=== PATIENT | male | born 1955 | race Caucasian/White ===

== ENCOUNTER 2017-02-09 08:16 | Emergency (ER) | payer BC, OTHER ==
[2017-02-09 08:32] VITALS: BP 170/99
[2017-02-09] MEDS ORDERED: Ondansetron TAB* 4 MG PO ONE (08:50)
[2017-02-09] MEDS ORDERED: Ondansetron ODT TAB* 4 MG ONE (08:53)
[2017-02-09] MEDS ORDERED: Ondansetron ODT TAB* 4 MG PO ONE (08:54)
--- NOTE | 2017-02-09 09:33 | RAD ---
HISTORY: Trauma, fall, neck pain COMPARISONS: None TECHNIQUE: Multiple contiguous axial CT scans were obtained of the cervical spine without intravenous contrast, with coronal and sagittal multiplanar reformations. FINDINGS: BRAIN: The visualized brain is unremarkable CENTRAL CANAL: Evaluation of the central canal is limited on CT technique; however, there is no obvious canalicular mass or epidural hemorrhage. ALIGNMENT: There is straightening with reversal of the normal cervical lordosis. VERTEBRAL BODIES: There is anterolateral marginal osteophyte formation most pronounced at C4-C5 and C5-C6. There is sclerotic reactive endplate change. There is no displaced fracture. JOINTS: There is uncovertebral and facet osteoarthritis. There is osteoarthritis of the atlantoaxial articulation. There is no subluxation or dislocation. MUSCULATURE: Unremarkable INTERVERTEBRAL DISCS: There is diffuse loss of intervertebral disc height. AXIAL IMAGES: There is neural foraminal narrowing bilaterally at C5-C6 and C6-C7. There is no osseous central canal stenosis. SOFT TISSUES: The visualized soft tissues of the neck are unremarkable. The prevertebral fat stripe is preserved. OTHER: None. IMPRESSION: DEGENERATIVE DISC DISEASE AND OSTEOARTHRITIS, WITHOUT ACUTE OSSEOUS INJURY TO THE CERVICAL SPINE
--- NOTE | 2017-02-09 09:36 | RAD ---
INDICATION: Fall. Intracranial injury. COMPARISON: None TECHNIQUE: Noncontrast axial source images were acquired from the skull base to the vertex. FINDINGS: Ventricles/sulci: The ventricles and cisterns are normal in size and configuration for age. Brain parenchyma: There is no focal parenchymal finding, evidence of intracranial mass, or intracranial mass effect. Intracranial hemorrhage:None. Extra-axial spaces: There are no abnormal extra axial fluid collections or evidence of extra-axial mass. Calvarium: There is no calvarial fracture or other calvarial abnormality. Scalp: There is no evidence of scalp or extracalvarial soft tissue abnormality. Paranasal sinuses/mastoid: The paranasal sinuses and mastoid air cells are clear. Other: None. IMPRESSION: No acute intracranial findings.
[2017-02-09] MEDS ORDERED: Ibuprofen TAB* 400 MG PO ONE (09:56)
--- NOTE | 2017-02-09 12:55 | UC ---
Nguyễn Suarez Adam, scribed for Glenda James MD on 02/09/17 at 0838 . Head Injury HPI - HPI Summary HPI Summary: Pt is a 61 year old male presenting after a head injury. He was at work approx 45 minutes ago when he fell in the parking lot and struck the back of his head. The event was witnessed by a co-worker but the pt does not remember the fall or anything that happened for several minutes afterwards. The first thing he remembers is people yelling at him while he was lying down. He currently c/o "pounding" pain in his ears, neck soreness (from shoulders to back of skull), and he states that his "stomach is doing flip flops." He states that his breathing is good now after using his inhaler. He denies any numbness, tingling , back pain, or difficulty moving extremities. Pt's last PO intake was a cup of coffee at 04:00 this morning. PMHx of HTN. Former smoker (quit 10 years ago). No Hx of DM. No prior head/neck injuries. - History Of Current Complaint Chief Complaint: UCTrauma Stated Complaint: HEAD/NECK INJURY Hx Obtained From: Patient Onset/Duration: Sudden Onset, Lasting Minutes, Still Present Severity Currently: Moderate Severity Initially: Moderate Aggravating Factor(s): Nothing Alleviating Factor(s): Nothing Associated Signs And Symptoms: Positive: Memory Loss, Neck Pain, Nausea, Other - Ears "pounding" - Allergies/Home Medications Allergies/Adverse Reactions: Allergies Allergy/AdvReac Type Severity Reaction Status Date / Time spinal anesthesia AdvReac Mild he gets Uncoded 01/19/13 09:32 "very mean" after waking up PMH/Surg Hx/FS Hx/Imm Hx Endocrine History Of: Denies: Diabetes, Thyroid Disease Cardiovascular History Of: Reports: Cardiac Disorders, Hypertension Denies: Pacemaker/ICD Respiratory History Of: Denies: COPD, Asthma GI/ History Of: Reports: Kidney Stones Denies: Gastroesophageal Reflux, Renal Disease Neurological History Of: Denies: CVA, Dementia, Seizures Other History Of: Negative For: Anticoagulant Therapy - Surgical History Surgical History: Yes Surgery Procedure, Year, and Place: suprapubic prostetectomy with lymph node dissection,. right hernia repair,. excision bladder stone,. cardiac cath - Family History Known Family History: Positive: Hypertension - Mother, father, Other - Septic shock (mother) - Social History Occupation: Employed Full-time Lives: With Family - Alcohol Use: Occasionally Substance Use Type: None Smoking Status (MU): Never Smoked Tobacco - Immunization History Most Recent Tetanus Shot: Unsure if he's up to date Review of Systems ENT: Ear Ache - "Pounding" Gastrointestinal: Other - Nausea - "stomach doing flip flops" Musculoskeletal: Other: - Neck soreness All Other Systems Reviewed And Are Negative: Yes Physical Exam Triage Information Reviewed: Yes Vital Signs: Initial Vital Signs Temp 99.1 F 02/09/17 08:25 Pulse 67 02/09/17 08:25 Resp 18 02/09/17 08:25 BP 170/99 02/09/17 08:25 Pulse Ox 94 02/09/17 08:25 - Additional Comments * Appearance: Well-Nourished * Eye Exam: PERRLA EOMI Sees double at approximately 8 inches. Fundi grossly benign. * ENT Exam: Normal TM's george, dull. Rtx'd. * Neck exam: Normal, No adenopathy appreciated * Respiratory Exam: Normal, no dyspnea, no tachypnea, normal respiratory rate * Cardiovascular Exam: Normal * Cardiovascular: Heart rate regular, good general skin color, good capillary refill * Abdominal Exam: Normal * Abdomen Description: Nontender, No Organomegaly, Soft. * Bowel Sounds: Present * Musculoskeletal Exam: Normal * Musculoskeletal: Strength Intact * Neurological Exam: CN 1 - 12 intact, incl + sens alcohol swab. No diplopia. DTR's 2+ equal BR / R Moves all ext's. Distal sens LT present x 4 ext's Denies B /B issues. Gait slow steady. * Psychological Exam: Normal: conversing easily and appropriately Skin Exam: Normal: no visible or reported rash Diagnostics - Laboratory Diagnostic Studies Completed/Ordered: CERVICAL SPINE CT - IMPRESSION: DEGENERATIVE DISC DISEASE AND OSTEOARTHRITIS, WITHOUT ACUTE OSSEOUS INJURY TO THE CERVICAL SPINE. BRAIN CT - IMPRESSION: NO ACUTE INTRACRANIAL FINDINGS. Head Injury Course/Dx - Course Course Of Treatment: No new problems while in the [facility]. Reviewed CT reports with Jeannie. Questions answered to the best of my ability. Reviewed need for f/u with pcp. Reviewed concussion instructions. - Differential Dx/Diagnosis Provider Diagnoses: Head injury; cervical spine strain; concussion. Discharge - Discharge Plan Condition: Stable Disposition: HOME Prescriptions: Cyclobenzaprine TAB* [Flexeril 10 MG TAB*] 10 mg PO TID PRN #20 tab PRN Reason: spasm Ondansetron ODT TAB* [Zofran 4 MG Odt TAB*] 4 mg PO Q6H PRN #16 tab.odt PRN Reason: Nausea Patient Education Materials: Concussion (ED), Head Injury (ED), Cervical Sprain (ED) Forms: *Work Release Referrals: Bradley Hurtado MD [Primary Care Provider] - Additional Instructions: Follow up with your Primary Care Physician, Dr. Hurtado, this week (within the next 2-3 days if possible for recheck). Please seek medical attention for worse or new symptoms in the meantime. Ibuprofen (as previously prescribed by your doctor), as needed for pain / inflammation. The documentation as recorded by the Nguyễn ramirez Adam accurately reflects the service I personally performed and the decisions made by me, Glenda James MD.
== END 2017-02-09 10:32 | disposition home or self-care (01) ==
LOC: UCEAST 08:16
DX: S16.1XXA Strain of muscle, fascia and tendon at neck level, initial encounter (principal); S06.0X9A Concussion with loss of consciousness of unspecified duration, initial encounter; W18.30XA Fall on same level, unspecified, initial encounter; Y93.9 Activity, unspecified; Y92.481 Parking lot as the place of occurrence of the external cause; M50.30 Other cervical disc degeneration, unspecified cervical region; M47.812 Spondylosis without myelopathy or radiculopathy, cervical region; Z88.4 Allergy status to anesthetic agent
CPT/HCPCS: 70450; 72125; 99213; A9270-GY; G0463

== ENCOUNTER 2017-02-12 11:59 | Emergency (ER) | payer SELFPAY ==
[2017-02-12 12:57] VITALS: BP 124/76
--- NOTE | 2017-02-12 13:27 | UC ---
Neck Pain HPI - HPI Summary HPI Summary: Fell backwards on ice 02/09/17, hit head and was unconscious with a few minutes of retrograde amnesia and confusion. Was seen in , CT of neck and head were normal. Was nauseated that day, since then no nausea, headache, confusion, or dizziness. Continues to have neck pain (mostly lateral) that worsens throughout the day. Hasn't wanted to take muscle relaxer because Dr. James warned him it could lead to urinary incontinence at night due to his hx of prostate CA. Needs note to return to work - History of Current Complaint Chief Complaint: UCBackPain Stated Complaint: HEAD INJURY FOLLOW UP Time Seen by Provider: 02/12/17 13:10 Hx Obtained From: Patient Onset/Duration Of Injury/Symptoms: Days Mechanism Of Injury: Blunt Trauma Timing: Constant Onset/Duration: Sudden Onset Severity: Moderate Location: Discrete At: Character: Dull, Aching, Stiff Aggravating Factors: Position, Movement Alleviating Factors: OTC Meds Associated Signs & Symptoms: Negative: Fever, Weakness, Headache, Paresthesia Related History: Occupational Injury - Allergies/Home Medications Allergies/Adverse Reactions: Allergies Allergy/AdvReac Type Severity Reaction Status Date / Time spinal anesthesia AdvReac Mild he gets Uncoded 01/19/13 09:32 "very mean" after waking up PMH/Surg Hx/FS Hx/Imm Hx Endocrine History Of: Denies: Diabetes, Thyroid Disease Cardiovascular History Of: Reports: Cardiac Disorders, Hypertension Denies: Pacemaker/ICD Respiratory History Of: Denies: COPD, Asthma GI/ History Of: Reports: Kidney Stones Denies: Gastroesophageal Reflux, Renal Disease Neurological History Of: Denies: CVA, Dementia, Seizures Other History Of: Negative For: Anticoagulant Therapy - Surgical History Surgical History: Yes Surgery Procedure, Year, and Place: suprapubic prostetectomy with lymph node dissection,. right hernia repair,. excision bladder stone,. cardiac cath - Family History Known Family History: Positive: Hypertension - Mother, father, Other - Septic shock (mother) - Social History Occupation: Employed Full-time Alcohol Use: Occasionally Substance Use Type: None Smoking Status (MU): Never Smoked Tobacco - Immunization History Most Recent Tetanus Shot: Unsure if he's up to date Review Of Systems Constitutional: Positive: Negative Skin: Positive: Negative Eyes: Positive: Negative ENT: Positive: Negative Respiratory: Positive: Negative Cardiovascular: Positive: Negative Gastrointestinal: Positive: Negative Genitourinary: Positive: Negative Musculoskeletal: Positive: Other: - pain in neck, back Neurological: Positive: Negative Psychological: Positive: Negative All Other Systems Reviewed And Are Negative: Yes Physical Exam Triage Information Reviewed: Yes Appearance: Well-Appearing, Pain Distress - with movement Vital Signs: Initial Vital Signs Temp 98.3 F 02/12/17 12:53 Pulse 68 02/12/17 12:53 Resp 16 02/12/17 12:53 BP 124/76 02/12/17 12:53 Pulse Ox 96 02/12/17 12:53 Vital Signs Reviewed: Yes Eye Exam: Normal Eyes: Positive: Conjunctiva Clear ENT Exam: Normal ENT: Positive: Normal ENT inspection, Hearing grossly normal, Pharynx normal, TMs normal Dental Exam: Normal Neck exam: Other - no c-spine tenderness Neck: Positive: Supple Respiratory Exam: Normal Respiratory: Positive: Chest non-tender, Lungs clear, Normal breath sounds, No respiratory distress, No accessory muscle use Cardiovascular Exam: Normal Cardiovascular: Positive: RRR, No Murmur Musculoskeletal Exam: Normal Musculoskeletal: Positive: Strength Intact, ROM Intact Neurological Exam: Normal Neurological: Positive: Alert, Muscle Tone Normal Psychological Exam: Normal Skin Exam: Normal Neck Pain Course/Dx - Differential Dx/Diagnosis Provider Diagnoses: Cervical strain. concussion resolving Discharge - Discharge Plan Condition: Stable Disposition: HOME Patient Education Materials: Cervical Strain (ED), Concussion (ED) Forms: *Work Release Referrals: Bradley Hurtado MD [Primary Care Provider] - Additional Instructions: Your concussion symptoms appear to have improved fully; if you develop headache , fatigue, or dizziness, get plenty of rest and take ibuprofen as needed. See your primary care provider or return here if symptoms persist or worsen. Start warm packs on your neck for 20-30 minutes in the evening. A hot shower might help as well. It can take weeks to fully recover from a neck strain, but please see your primary care provider if you develop weakness, pain, or numbness /tingling in your hands, arms, neck, or chest.
== END 2017-02-12 13:30 | disposition home or self-care (01) ==
LOC: UCEAST 11:59
DX: S16.1XXD Strain of muscle, fascia and tendon at neck level, subsequent encounter (principal); S06.0X1D Concussion with loss of consciousness of 30 minutes or less, subsequent encounter; W00.0XXD Fall on same level due to ice and snow, subsequent encounter; Z88.4 Allergy status to anesthetic agent
CPT/HCPCS: 99211; G0463

== ENCOUNTER 2018-12-21 14:01 | Emergency (ER) | payer BC ==
[2018-12-21 14:13] VITALS: BP 157/100
--- NOTE | 2018-12-21 14:18 | UC ---
Lower Extremity/Ankle HPI - HPI Summary HPI Summary: 63 yo male presents with RIGHT foot pain. He tells me that he is unsure what happened, but has cats at home and thinks one of them may have scratched his foot a few days ago. Yesterday noticed some redness and pain to the inside of his right foot near his ankle. Today the redness is improved, but the pain is still there. He is ambulating well and says it is only painful to touch. Denies fever or hx of DM - History of Current Complaint Chief Complaint: UCLowerExtremity Stated Complaint: FOOT INJURY Time Seen by Provider: 12/21/18 14:17 Hx Obtained From: Patient Onset/Duration: Sudden Onset Severity Currently: Moderate Pain Intensity: 6 Pain Scale Used: 0-10 Numeric Able to Bear Weight: Yes - Allergies/Home Medications Allergies/Adverse Reactions: Allergies Allergy/AdvReac Type Severity Reaction Status Date / Time Imdur Allergy Unknown Uncoded 12/21/18 14:13 Reaction Details spinal anesthesia AdvReac Mild he gets Uncoded 12/21/18 14:13 "very mean" after waking up Home Medications: Home Medications Fluvastatin (NF) [Lescol (NF)] 20 mg PO DAILY 12/21/18 [History Confirmed ] Nitroglycerin TAB 0.4 MG* 0.4 mg PO Q1HR 12/21/18 [History Confirmed 12/21/18] PMH/Surg Hx/FS Hx/Imm Hx Endocrine History: Dyslipidemia Cardiovascular History: Cardiac Disease, Hypertension Other History Of: Negative For: Anticoagulant Therapy - Surgical History Surgical History: Yes Surgery Procedure, Year, and Place: suprapubic prostetectomy with lymph node dissection,. right hernia repair,. excision bladder stone,. cardiac cath - Family History Known Family History: Positive: Hypertension - Mother, father, Other - Septic shock (mother) - Social History Lives: With Family Alcohol Use: Rare Substance Use Type: None Smoking Status (MU): Former Smoker Type: Cigarettes Amount Used/How Often: 1pck varied Have You Smoked in the Last Year: No - Immunization History Most Recent Tetanus Shot: Unsure if he's up to date Review of Systems All Other Systems Reviewed And Are Negative: Yes Constitutional: Positive: Negative Skin: Positive: Other - Right inner foot redness and pain Respiratory: Positive: Negative Cardiovascular: Positive: Negative Neurovascular: Positive: Negative Neurological: Positive: Negative Psychological: Positive: Negative Physical Exam - Summary Physical Exam Summary: GENERAL: NAD. WDWN. No pain distress. SKIN: RIGHT FOOT: inferior to malleolus there is a 1.0cm area of mild erythema that is mildly TTP. No streaking, open wound, or drainage. CHEST: No accessory muscle use. Breathing comfortably and in no distress. CV: Pulses intact. Cap refill <2seconds MSK: RIGHT ankle: FROM without pain NEURO: Alert. PSYCH: Age appropriate behavior. Triage Information Reviewed: Yes Vital Signs: Initial Vital Signs Temp 99.4 F 12/21/18 14:07 Pulse 78 12/21/18 14:07 Resp 18 12/21/18 14:07 BP 157/100 12/21/18 14:07 Pulse Ox 96 12/21/18 14:07 Vital Signs Reviewed: Yes Lower Extremity Course/Dx - Course Course Of Treatment: Cellulitis right foot - improving. Will rx for bactroban. Area dressed with telfa today and advised to keep covered until well healed. F/ u with PCP next week for a recheck. - Differential Dx/Diagnosis Provider Diagnosis: Cellulitis of right foot Discharge - Sign-Out/Discharge Documenting (check all that apply): Patient Departure All imaging exams completed and their final reports reviewed: No Studies - Discharge Plan Condition: Stable Disposition: HOME Prescriptions: Mupirocin 2% CREAM* [Bactroban 2% CREAM*] 1 applic TOPICAL BID #1 tube Patient Education Materials: Cellulitis (ED) Referrals: Bradley Hurtado MD [Primary Care Provider] - 1 Week Additional Instructions: If you develop a fever, shortness of breath, chest pain, new or worsening symptoms - please call your PCP or go to the ED. Your blood pressure was high at todays visit. Please see your primary provider within 4 weeks for recheck and re-evaluation. Keep a dressing on the area until well healed. Call your primary doctor to schedule a follow up for a recheck early next week - Billing Disposition and Condition Condition: STABLE Disposition: Home
== END 2018-12-21 14:40 | disposition home or self-care (01) ==
LOC: UCEAST 14:01
DX: L03.115 Cellulitis of right lower limb (principal); I25.10 Atherosclerotic heart disease of native coronary artery without angina pectoris; I10 Essential (primary) hypertension; Z88.6 Allergy status to analgesic agent; Z88.8 Allergy status to other drugs, medicaments and biological substances; Z87.891 Personal history of nicotine dependence
CPT/HCPCS: 99212; G0463

== ENCOUNTER 2019-01-06 14:25 | Emergency (ER) | payer BC ==
[2019-01-06 15:01] VITALS: BP 135/81
--- NOTE | 2019-01-06 15:17 | UC ---
Skin Complaint HPI - HPI Summary HPI Summary: 63-year-old male was in with a chief complaint of right ankle skin infection. Patient was seen here in December 21, 2018 with a skin infection on the medial aspect of his right ankle and started on mupirocin. The course overall has improved but then last night he had some swelling and pus drainage and with some pain coming up the medial aspect of the right ankle in to the calf. No fevers or chills. Feels well otherwise. Pushing on it makes the pain worse. Not pushing on it decreases the pain. - History of Current Complaint Chief Complaint: UCWounds Time Seen by Provider: 01/06/19 14:56 Stated Complaint: ANKLE INJURY Pain Intensity: 0 - Allergy/Home Medications Allergies/Adverse Reactions: Allergies Allergy/AdvReac Type Severity Reaction Status Date / Time Imdur Allergy Unknown Uncoded 01/06/19 14:53 Reaction Details spinal anesthesia AdvReac Mild he gets Uncoded 01/06/19 14:53 "very mean" after waking up PMH/Surg Hx/FS Hx/Imm Hx Previously Healthy: Yes Cardiovascular History: Hypertension Other History Of: Negative For: Anticoagulant Therapy - Surgical History Surgical History: Yes Surgery Procedure, Year, and Place: suprapubic prostetectomy with lymph node dissection,. right hernia repair,. excision bladder stone,. cardiac cath ( clean) - Family History Known Family History: Positive: Hypertension - Mother, father, Other - Septic shock (mother) - Social History Alcohol Use: Rare Substance Use Type: None Smoking Status (MU): Former Smoker Type: Cigarettes Amount Used/How Often: 1pck varied Have You Smoked in the Last Year: No - Immunization History Most Recent Tetanus Shot: Unsure if he's up to date Review of Systems All Other Systems Reviewed And Are Negative: Yes Constitutional: Positive: Negative Skin: Positive: Other - see hpi Eyes: Positive: Negative ENT: Positive: Negative Respiratory: Positive: Negative Cardiovascular: Positive: Negative Gastrointestinal: Positive: Negative Motor: Positive: Negative Neurovascular: Positive: Negative Musculoskeletal: Positive: Negative Neurological: Positive: Negative Psychological: Positive: Negative Is Patient Immunocompromised?: No Physical Exam Triage Information Reviewed: Yes Appearance: Well-Appearing, No Pain Distress, Well-Nourished Vital Signs: Initial Vital Signs Temp 98.9 F 01/06/19 14:55 Pulse 69 01/06/19 14:55 Resp 18 02/08/19 14:55 BP 135/81 01/06/19 14:55 Pulse Ox 93 01/06/19 14:55 Vital Signs Reviewed: Yes Eye Exam: Normal Eyes: Positive: Conjunctiva Clear Neck exam: Normal Neck: Positive: Supple Respiratory: Positive: No respiratory distress Musculoskeletal Exam: Normal Musculoskeletal: Positive: Strength Intact, ROM Intact Neurological Exam: Normal Neurological: Positive: Alert, Muscle Tone Normal Psychological Exam: Normal Psychological: Positive: Age Appropriate Behavior Skin: Positive: Other - On the medial aspect of the right ankle there is a 2 cm erythematous area with a hole through the skin. I attempted to express some pus and sent that to the lab for culture. There is no streaking it's not hot to touch. There is no calf tenderness to palpation. There is some tenderness just medial to the area described in the medial ankle. Normal capillary refill normal pulses no sensation deficit. No fluctuant mass. Course/Dx - Course Course Of Treatment: Patient will continue with the mupirocin I also added Keflex 500 mg 4 times a day. Follow-up primary care doctor reevaluate sooner if worse or any questions or concerns. - Diagnoses Provider Diagnosis: Ankle abscess Discharge - Sign-Out/Discharge Documenting (check all that apply): Patient Departure All imaging exams completed and their final reports reviewed: No Studies - Discharge Plan Condition: Stable Disposition: HOME Prescriptions: Cephalexin CAP* [Keflex CAP*] 500 mg PO QID #40 cap Patient Education Materials: Abscess (ED) Referrals: Bradley Hurtado MD [Primary Care Provider] - Additional Instructions: FOLLOW UP WITH YOUR DOCTOR IF NOT COMPLETELY IMPROVED. GET RECHECKED FOR ANY WORSENING OF YOUR CONDITION OR QUESTIONS OR CONCERNS. - Billing Disposition and Condition Condition: STABLE Disposition: Home
--- NOTE | 2019-01-07 07:29 | UC ---
- Progress Note Progress Note: MRSA neg culture pending on Cephalexin await culture no change jose 01/07/19 Course/Dx - Diagnoses Provider Diagnoses: Ankle abscess Discharge - Sign-Out/Discharge Documenting (check all that apply): Post-Discharge Follow Up All imaging exams completed and their final reports reviewed: No Studies - Discharge Plan Condition: Stable Disposition: HOME Prescriptions: Cephalexin CAP* [Keflex CAP*] 500 mg PO QID #40 cap Patient Education Materials: Abscess (ED) Referrals: Bradley Hurtado MD [Primary Care Provider] - Additional Instructions: FOLLOW UP WITH YOUR DOCTOR IF NOT COMPLETELY IMPROVED. GET RECHECKED FOR ANY WORSENING OF YOUR CONDITION OR QUESTIONS OR CONCERNS. - Billing Disposition and Condition Condition: STABLE Disposition: Home
--- NOTE | 2019-01-08 07:41 | UC ---
- Progress Note Progress Note: Labs reviewed wound culture: MRSA negative No growth day 1 Patient on Keflex Await final culture/sensitivity report No change in plan Course/Dx - Diagnoses Provider Diagnoses: Ankle abscess Discharge - Sign-Out/Discharge Documenting (check all that apply): Post-Discharge Follow Up All imaging exams completed and their final reports reviewed: No Studies - Discharge Plan Condition: Stable Disposition: HOME Prescriptions: Cephalexin CAP* [Keflex CAP*] 500 mg PO QID #40 cap Patient Education Materials: Abscess (ED) Referrals: Bradley Hurtado MD [Primary Care Provider] - Additional Instructions: FOLLOW UP WITH YOUR DOCTOR IF NOT COMPLETELY IMPROVED. GET RECHECKED FOR ANY WORSENING OF YOUR CONDITION OR QUESTIONS OR CONCERNS. - Billing Disposition and Condition Condition: STABLE Disposition: Home
--- NOTE | 2019-01-09 08:09 | UC ---
- Progress Note Progress Note: Final wound culture of the right ankle shows possible 1+ gram-positive cocci and possible 1 positive gram positive bacilli. Patient is on Keflex. Nursing to contact patient make sure he is getting better and make sure he has appropriate follow-up with his primary care physician to sure full resolution of his skin infection. Course/Dx - Diagnoses Provider Diagnoses: Ankle abscess Discharge - Sign-Out/Discharge Documenting (check all that apply): Patient Departure All imaging exams completed and their final reports reviewed: No Studies - Discharge Plan Condition: Stable Disposition: HOME Prescriptions: Cephalexin CAP* [Keflex CAP*] 500 mg PO QID #40 cap Patient Education Materials: Abscess (ED) Referrals: Bradley Hurtado MD [Primary Care Provider] - Additional Instructions: FOLLOW UP WITH YOUR DOCTOR IF NOT COMPLETELY IMPROVED. GET RECHECKED FOR ANY WORSENING OF YOUR CONDITION OR QUESTIONS OR CONCERNS. - Billing Disposition and Condition Condition: STABLE Disposition: Home
== END 2019-01-06 15:30 | disposition home or self-care (01) ==
LOC: UCEAST 14:25
DX: L02.415 Cutaneous abscess of right lower limb (principal); I10 Essential (primary) hypertension; Z87.891 Personal history of nicotine dependence; Z88.8 Allergy status to other drugs, medicaments and biological substances
CPT/HCPCS: 87070; 87205; 87640; 87641; 99212; G0463

== ENCOUNTER 2019-02-16 08:31 | Day surgery (SDC) | payer BC ==
--- NOTE | 2019-02-08 19:26 | HP ---
PREOPERATIVE HISTORY AND PHYSICAL: DATE OF ADMISSION/SURGERY: 02/16/19 - [facility] DATE OF OFFICE VISIT: 02/08/19 ATTENDING SURGEON: Dr. Da Razo.* (DICTATED BY JACQUELIN LUGO) PROCEDURE: Left thumb carpometacarpal arthroplasty and endoscopic possible open carpal tunnel release. CHIEF COMPLAINT: Left thumb and wrist. HISTORY OF PRESENT ILLNESS: Alcides is a 63-year-old male who presents to the clinic for left thumb basal joint arthritis and carpal tunnel syndrome. He has failed conservative measures and therefore agreed to undergo a left thumb carpometacarpal arthroplasty and endoscopic possible open carpal tunnel release by Dr. Razo on 02/16/19. PAST MEDICAL HISTORY: Hypertension, heart disease, high cholesterol and soreness in right ankle. PAST SURGICAL HISTORY: Prostate surgery in 2007, ankle surgery in 1999 and right carpal tunnel release. MEDICATIONS: 1. Ibuprofen 200 mg 1 to 2 as needed. 2. Asmanex Twisthaler 40 metered doses 220 mcg per inhalation 1 inhalation twice a day. 3. Fluvastatin sodium 20 mg 1 by mouth daily. 4. Aleve 220 mg 1 to 2 twice a day. 5. Keflex 500 mg 1 by mouth 4 times a day. 6. Tramadol 50 mg 1 to 2 every 6 hours as needed for pain. 7. Nitroglycerin 0.4 mg 1 sublingual as needed x3 for chest pain. 8. Hydrochlorothiazide 25 mg 1 by mouth every day. 9. Metoprolol 50 mg 1 by mouth twice a day. 10. Losartan 50 mg 1 by mouth twice a day. ALLERGIES: IMDUR. FAMILY HISTORY: Positive for diabetes, hypertension, and cancer. SOCIAL HISTORY: He lives with his spouse. 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 He is a former smoker, quit 11 years ago. He reports occasional alcohol consumption. He denies illegal drug use. REVIEW OF SYSTEMS: A 14-point review of systems was reviewed with the patient. Positive for current complaint, otherwise negative. Denies fever, chills, chest pain, shortness of breath, history of bleeding disorder, history of DVT or PE. PHYSICAL EXAMINATION GENERAL: A 63-year-old well-developed, well-nourished male, in no acute distress. VITAL SIGNS: Height 68, weight 235, pulse 60, blood pressure 124/78, respiratory rate 18, temperature 97.7, BMI 35.7. HEENT: Normocephalic, atraumatic. PERRLA. Throat clear. NECK: Supple. PULMONARY: Lungs are clear to auscultation bilaterally. No wheezing, rhonchi, or rales. CARDIO: Regular rate and rhythm. S1, S2. No murmurs, gallops, or rubs. No edema. ABDOMEN: Positive bowel sounds. Soft, nontender. NEURO: Alert and oriented x3. Cranial nerves grossly intact. MUSCULOSKELETAL: Left upper extremity: Skin is intact. Moderate swelling of the basal joint. No bruising. Full range of motion of the hand and wrist, tender at the base of the thumb along the basal joint. Positive basal joint grind test. First dorsal compartment A1 pulleys are nontender. No tenderness to palpation of the carpal tunnel. Positive Tinel's of the carpal tunnel and positive carpal compression test. No laxity or atrophy. A +5/5 strength in the intrinsic and thenar strength. A +2 radial pulse. Sensation intact to light touch distally. DIAGNOSTIC STUDIES: X-ray revealed healed Marin fracture that has gone on to severe traumatic osteoarthritis of the basal joint. Electrodiagnostic studies from [address] Ye reveals moderate carpal tunnel syndrome. IMPRESSION: 1. Left basal joint osteoarthritis. 2. Left wrist carpal tunnel syndrome. PLAN: The patient is scheduled to undergo a left thumb carpometacarpal arthroplasty and endoscopic possible open carpal tunnel release by Dr. Razo on 02/16/19 for treatment of a work-related injury. He will follow up 10 to 14 days postop for followup and suture removal. JACQUELIN LUGO [id number]/[facility] #: [id number] [facility] PS[facility]RIC CENTERPavel
[~2019-02-16 08:31] MED LIST: Buffered Lidocaine 1% SYRIN* 1 ML/SYRINGE INTRADERM ONE; Dexamethasone IV* 4 MG/ML 1 ML (4 MG) IV SLOW PU ONE; Dexamethasone IV* 4 MG/ML 1 ML (4 MG) ONE; Famotidine IV* 10 MG/ML 2 ML (20 mg) IV ONE; Famotidine IV* 10 MG/ML 2 ML (20 mg) ONE; Lactated Ringers 1000 ML Bag* 1,000 ML IV SCH
[2019-02-16] MEDS ORDERED: Midazolam* 1 MG/ML 2 ML VIAL (2 MG) ONE (09:03)
[2019-02-16] MEDS ORDERED: fentaNYL* 50 MCG/ML 2 ML VIAL (100 MCG VIAL) ONE (09:03)
[2019-02-16] MEDS ORDERED: KETAMINE HCL* 50 MG/ML 10 ML VIAL ONE (09:03)
[2019-02-16] MEDS ORDERED: Propofol* 10 MG/ML 20 ML BTL ONE (09:04)
[2019-02-16] MEDS ORDERED: Lidocaine 2% PF * 5 ML VIAL ONE (09:04)
[2019-02-16] MEDS ORDERED: EPHEDrine (Pressors)* 50 MG/ML VIAL ONE (09:38)
[2019-02-16] MEDS ORDERED: Ketorolac INJ* 30 MG/ML 1 ML VIAL ONE (09:40)
[2019-02-16] MEDS ORDERED: hydrALAZINE IV* 20 MG/ML VIAL ONE (10:42)
[2019-02-16] MEDS ORDERED: Metoprolol Tartrate IV* 1 MG/ML 5 ML VIAL ONE ×2 (10:46→12:31)
[2019-02-16] MEDS ORDERED: Ondansetron INJ* 2 MG/ML VIAL ONE (10:56)
[2019-02-16] MEDS ORDERED: Bupivacaine 0.25% SDV PF* 10 ML VIAL INJ ONE (11:29)
[2019-02-16] MEDS ORDERED: Nitroglycerin TAB 0.4 MG* 0.4 MG TAB ONE (12:21)
[2019-02-16] MEDS ORDERED: Morphine 10 MG/ML VIAL (1 ml) ONE (12:26)
[2019-02-16] MEDS ORDERED: Aspirin TAB* 325 MG ONE (12:30)
[2019-02-16] MEDS ORDERED: Aspirin 81 mg CHEW TAB* 81 MG TAB.CHEW ONE (12:30)
--- NOTE | 2019-02-16 13:14 | PN ---
Progress Note - Progress Note Date of Service: 02/16/19 - Anesthesia Note Note: Patient is a 63 yr. male with past medical history of HTN, hyperlipidemia, IFG, obesity, and FIDEL who is s/p hand surgery under general anesthesia. Intraop patient required 20 mg of Hydralazine and 5 mg of metoprolol for HTN most likely secondary to tourniquet pain. Pt stable intraop and was easily extubated and transferred to PACU with O2 in stable condition. Patient in recovery was stable and joking when at approx. 30 minutes in PACU patient complained of acute onset of chest pressure (dog sitting on chest) and SOB. I was called to evaluate patient. Patient was anxious, unable to talk in complete sentences, complaining of significant chest heaviness with no c/o neck, jaw or arm pain. EKG obtained, SL nitro started and required 3 doses with each dose improving chest pressure. O2, ASA 325, Morphine 2mg and 5 mg of Metoprolol given. Patient had significant improvement in symptoms with minimal chest heaviness at time of transfer. At time of transfer BP=98/70 HR=99, RR=20-22 Spo2 99% on 2l O2. He was awake, alert, stable. EKG with borderline T changes inferior leads. Case discussed with Dr. Cheng in ED and Dr. Razo. Patient appeared stable at time of transfer. Dr. Praful Moore. Anesthesiologist
[2019-02-16 13:33] VITALS: BP 98/70
--- NOTE | 2019-02-16 18:02 | OP ---
DATE OF OPERATION: 02/16/19 - [facility] DATE OF : 59 SURGEON: Da Razo MD. MENTAL HEALTH SOCIAL WORKER: JACQUELIN Watts. An assistant clinical director was needed for the procedure to aid in positioning of the arm and retraction. ANESTHESIOLOGIST: Dr. Basilio. ANESTHESIA: General. PRE-OP DIAGNOSES: 1. Left thumb stage 3 basal joint arthritis. 2. Left carpal tunnel syndrome. POST-OP DIAGNOSES: 1. Left thumb stage 3 basal joint arthritis. 2. Left carpal tunnel syndrome. OPERATIVE PROCEDURE: 1. Left thumb carpometacarpal arthroplasty with trapeziectomy and thumb suspension. 2. Split flexor carpi radialis tendon transfer, distally based tendon transfer for thumb suspension and tendon interposition. 3. Left carpal tunnel release. INDICATIONS: Alcides has carpal tunnel bilaterally. I have already done the right carpal tunnel release and he is doing well from that. He now presents for left thumb carpometacarpal arthroplasty with the carpal tunnel release. He under-stands that there are both surgical risks such as infection and neurovascular injury as well as medical risk. He wants to proceed. ESTIMATED BLOOD LOSS: 5 mL. COMPLICATIONS: None. FINDINGS: See above and below. DESCRIPTION OF PROCEDURE: Alcides was seen in the preoperative holding area. The correct site, side, and procedure were identified. We came back to the operating room and the arm was prepped and draped in the usual fashion and time- out was performed. The arm was exsanguinated with the Esmarch and the tourniquet was inflated to 250 mmHg. I began by making a 2 to 3 cm longitudinal incision in the typical location for an open carpal tunnel release. Dissection was carried down through the subcutaneous tissue and palmar fascia. The transverse carpal ligament was released just off the radial aspect of the hook of the hamate. The release was completed distally and then proximally I released the subcutaneous tissue and fascia and retracted that out of the way and the remainder of the transverse carpal ligament and distal antebrachial fascia was released with a tenotomy scissors. Once I confirmed the release distally and proximally, we irrigated out the wound. Skin was closed with 4-0 nylon suture. I then made a 2 cm longitudinal incision over the dorsoradial thumb. Dissection was carried down through the subcutaneous tissue and fascia. Care was taken to preserve the traversing radial sensory nerves. The radial artery was very robust, this was mobilized. The venae comitantes were quite robust as well. The more distal one was cauterized. The radial artery was then retracted out of the way. I then made a longitudinal split along the subperiosteum and through the capsules of carpometacarpal joint and scaphotrapezial joints. Full-thickness subperiosteal and capsular flaps were raised. The trapezium was then excised in piecemeal fashion with the rongeur. Once the entirety of the trapezium was excised, I could visualize the FCR tendon in the base of the wound. There were extensive osteophytes all around the trapezium and extensive synovitis. This was all debrided. The scaphotrapezoid joint looked good. At this point, the tourniquet was little venous and so I let down the tourniquet and re-exsanguinated and inflated the tourniquet to 275 mmHg. I then made a bone tunnel using sequentially larger drill bits from the dorsoradial thumb metacarpal base extending out the volar ulnar articular surface near the base of the second metacarpal. I then turned my attention to the tendon transfer. I have made a 1 cm transverse incision just proximal to the wrist flexion crease. The FCR tendon sheath was opened. The tendon was delivered up out of the wound and split longitudinally with a 15 blade and then a 26 gauge wire was passed into the tendon split. I made 2 more transverse incisions, each about 6 or 7 cm proximal to the last and released the sheath along the entirety of the FCR tendon. A Vandana clamp was then used to pass the 2 ends of the 26 gauge wire up into the middle and then finally to the proximal wound, releasing half of the tendon and the musculotendinous junction. I then used two 26 gauge wires to suture shuttle the free tail down into the thumb base wound. The tendon split was taken all the way down to the base of the second metacarpal. The free end of the tendon was passed through the metacarpal base, the drill hole in the metacarpal base, back around the intact limb of the FCR tendon, and then maximum tension was set and the tendon transfer was secured with 3 figure- of- eight 3-0 Ethibond sutures, the first sewing all 3 limbs of the tendon transfer together, the second sewing intact limb to intact limb. The remainder of the FCR tendon tail was rolled up as above and secured with 3-0 Ethibond suture and placed this in interposition at the site of the trapeziectomy. The wound was irrigated out. The capsule was closed with 4-0 Vicryl suture. The skin was closed with 4-0 nylon suture. After all the wounds have been irrigated, 0.25% Marcaine was infiltrated all around the operative area. The wounds were dressed with Xeroform, 4x4s, sterile Webril, and then a thumb spica splint with the IP joint free was applied. The tourniquet was deflated. The hand pinked up immediately. He was then taken to the recovery room in stable condition. [id number]/CPS #: [id number] VINEET
== END 2019-02-16 13:00 | disposition other institution (70) ==
LOC: OREAST 08:31
PROVIDERS: ATTEND Orthopaedic Surgery Hand Surgery
DX: M18.12 Unilateral primary osteoarthritis of first carpometacarpal joint, left hand (principal); G56.02 Carpal tunnel syndrome, left upper limb; R07.89 Other chest pain; Y83.8 Other surgical procedures as the cause of abnormal reaction of the patient, or of later complication, without mention of misadventure at the time of the procedure; Y92.238 Other place in hospital as the place of occurrence of the external cause; I10 Essential (primary) hypertension; E78.5 Hyperlipidemia, unspecified; G47.33 Obstructive sleep apnea (adult) (pediatric); Z87.891 Personal history of nicotine dependence; R73.01 Impaired fasting glucose
CPT/HCPCS: 88304; 88311; A9270-GY; C1776; J0360; J1100; J1885; J2250; J2270; J2405; J2704; J3010; J3490

== ENCOUNTER 2019-02-16 13:19 | Observation (INO) | payer BC ==
--- NOTE | 2019-02-16 13:37 | ED ---
HPI Chest Pain - HPI Summary HPI Summary: A 63 y/o male brought in by [facility] ambulance presents to [facility] with a chief complaint of chest pain post hand surgery today. The patient describes his pain as heaviness and rates his pain as a 2/10 in severity. He notes that he is feeling better now in the ED. He also reports SOB and feeling near syncopal, but denies nausea and swelling in his legs. He also reports being on abx for a wound on his right foot. The patient reports that he sees Dr. Ward for HTN , and he also had a cardiac catheterization about 5-6 years ago. He is a former smoker who smoked a pack a day for about 20 years, quitting in 2007. He reports that he does not use O2 at home. Vital signs while in room HR: 94 bpm, O2 Sat: 93 while on O2, BP: 112/65. - History of Current Complaint Chief Complaint: EDChestPainROMI Time Seen by Provider: 02/16/19 13:24 Hx Obtained From: Patient, EMS Onset/Duration: Started Hours Ago, Still Present Timing: Constant, Lasting Hours Initial Severity: Severe Current Severity: Mild Pain Intensity: 2 Pain Scale Used: 0-10 Numeric Chest Pain Location: Diffuse Chest Pain Radiates: No Character: Heaviness Aggravating Factor(s): Nothing Alleviating Factor(s): Nothing Associated Signs and Symptoms: Positive: Shortness of Breath. Negative: Nausea , Edema - Allergy/Home Medications Allergies/Adverse Reactions: Allergies Allergy/AdvReac Type Severity Reaction Status Date / Time isosorbide [From Imdur] Allergy See Comment Verified 02/16/19 18:38 morphine AdvReac Itching Verified 02/16/19 15:54 spinal anesthesia AdvReac Mild he gets Uncoded 02/16/19 08:47 "very mean" after waking up Home Medications: Home Medications Hydrochlorothiazide TAB* [Hydrodiuril TAB*] 25 mg PO DAILY 02/16/19 [History Confirmed 02/16/19] Losartan TAB* [Cozaar TAB*] 50 mg PO BID 02/16/19 [History Confirmed 02/16/19] Metoprolol Succinate XL TAB* [Toprol XL TAB*] 50 mg PO BID 02/16/19 [History Confirmed 02/16/19] traMADol TAB* [Ultram*] 50 - 100 mg PO Q6HR PRN 02/16/19 [History Confirmed ] PMH/Surg Hx/FS Hx/Imm Hx Endocrine/Hematology History: Denies: Hx Anticoagulant Therapy, Hx Diabetes, Hx Thyroid Disease Cardiovascular History: Reports: Hx Angina, Hx Hypercholesterolemia, Hx Hypertension - on meds Denies: Hx Pacemaker/ICD, Other Cardiovascular Problems/Disorders Respiratory History: Reports: Hx Asthma, Hx Sleep Apnea Denies: Hx Chronic Obstructive Pulmonary Disease (COPD), Other Respiratory Problems/Disorders GI History: Denies: Other GI Disorders History: Reports: Hx Kidney Stones - past, Other Problems/Disorders - prostate cancer Denies: Hx Renal Disease Musculoskeletal History: Reports: Hx Arthritis - akles, left wrist, Hx Tendonitis - Carpal Tunnel left limb, right carpal tunnel release 01/17 Denies: Other Musculoskeletal History Sensory History: Reports: Hx Contacts or Glasses - glasses, Hx Hearing Aid - chelo Opthamlomology History: Reports: Hx Contacts or Glasses - glasses Neurological History: Denies: Hx Dementia, Hx Seizures, Other Neuro Impairments/Disorders Psychiatric History: Denies: Hx Substance Abuse - Cancer History Cancer Type, Location and Year: prostate Hx Chemotherapy: No - Surgical History Surgery Procedure, Year, and Place: suprapubic prostetectomy with lymph node dissection,, 2007, [facility]. right hernia repair,1989. right ankle, 1985. excision bladder stone, and kidney, 2007. cardiac cath (clean) Hx Anesthesia Reactions: Yes - spinal anes allergy possible, violent with anesthesia Infectious Disease History: No Infectious Disease History: Denies: Hx Hepatitis, Hx Human Immunodeficiency Virus (HIV), Traveled Outside the [place] in Last 30 Days - Family History Known Family History: Positive: Hypertension - Mother, father, Other - Septic shock (mother) - Social History Alcohol Use: Rare Alcohol Amount: holidays Substance Use Type: Reports: None Smoking Status (MU): Former Smoker Type: Cigarettes Amount Used/How Often: 2 packs a day for 20 yrs Have You Smoked in the Last Year: No Review of Systems Negative: Fever Positive: Chest Pain Positive: Shortness Of Breath Negative: Nausea Negative: Edema All Other Systems Reviewed And Are Negative: Yes Physical Exam - Summary Physical Exam Summary: Appearance: The patient is well-nourished in no acute distress and in no acute pain. Skin: The skin is warm and dry and skin color reflects adequate perfusion. HEENT: The head is normocephalic and atraumatic. The pupils are equal and reactive. The conjunctivae are clear and without drainage. Nares are patent and without drainage. Mouth reveals moist mucous membranes and the throat is without erythema and exudate. The external ears are intact. The ear canals are patent and without drainage. The tympanic membranes are intact. Neck: The neck is supple with full range of motion and non-tender. There are no carotid bruits. There is no neck vein distension. Respiratory: Chest is non-tender. Lungs are clear to auscultation and breath sounds are symmetrical and equal. Cardiovascular: Heart is regular rate and rhythm. There is no murmur or rub auscultated. There is no peripheral edema and pulses are symmetrical and equal. Abdomen: The abdomen is soft and non-tender. There are normal bowel sounds heard in all four quadrants and there is no organomegaly palpated. Musculoskeletal: There is no back tenderness noted. Extremities are non-tender with full range of motion. There is good capillary refill. There is no peripheral edema or calf tenderness elicited. Small open area surrounded by chronic venous stasis changes on right medial ankle. Neurological: Patient is alert and oriented to person, place and time. The patient has symmetrical motor strength in all four extremities. Cranial nerves are grossly intact. Deep tendon reflexes are symmetrical and equal in all four extremities. Psychiatric: The patient has an appropriate affect and does not exhibit any anxiety or depression. Triage Information Reviewed: Yes Vital Signs On Initial Exam: Initial Vitals Temp Pulse Resp BP Pulse Ox 99.0 F 96 16 142/62 99 02/16/19 13:20 02/16/19 13:20 02/16/19 13:20 02/16/19 13:20 02/16/19 13:20 Vital Signs Reviewed: Yes Diagnostics - Vital Signs Vital Signs Temp Pulse Resp BP Pulse Ox 02/16/19 13:20 99.0 F 96 16 142/62 99 - Laboratory Result Diagrams: 02/17/19 05:29 02/17/19 05:29 Lab Statement: Any lab studies that have been ordered have been reviewed, and results considered in the medical decision making process. - Radiology CXR Radiology Interpretation Completed By: Radiologist Summary of Radiographic Findings: NO ACTIVE CARDIOPULMONARY DISEASE IS NOTED. ED physician has reviewed this imaging report. - EKG 13:44 Cardiac Rate: NL - 93 bpm EKG Rhythm: Sinus Rhythm Summary of EKG Findings: Normal sinus rhythm at 93 bpm with nonspecific inferior changes, new from 2011 Chest Pain Course/Dx - Course Course Of Treatment: Mr. Dennis had left carpal tunnel surgery today. About a half an hour after that he suddenly started with severe chest pressure. He was given nitroglycerin, aspirin, morphine and Lopressor in the recovery unit. An initial EKG was reportedly not showing an acute STEMI. By the time he arrived here he was feeling better but still had chest pressure. He was nontoxic in appearance with stable vitals. An EKG was performed which showed no STEMI or acute ischemic change. Labs were obtained while he was kept on a monitor and his initial troponin was 0. The hospitalist service was contacted for admission after speaking with Dr. Ward. - Diagnoses Provider Diagnoses: Chest pain - Provider Notifications Discussed Care Of Patient With: Nidhi Dawn Time Discussed With Above Provider: 15:36 Instructed by Provider To: Admit As Inpatient Discharge - Sign-Out/Discharge Documenting (check all that apply): Patient Departure - admit Patient Received Moderate/Deep Sedation with Procedure: No - Discharge Plan Condition: Fair Disposition: ADMITTED TO [facility] - Billing Disposition and Condition Condition: FAIR Disposition: Admitted to [facility] - Attestation Statements Document Initiated by Elvin: Yes Documenting Scribe: Demario Barksdale Provider For Whom Elvin is Documenting (Include Credential): Jr Cheng MD Scribe Attestation: IDemario, scribed for rJ Cheng MD on 02/17/19 at 1209. Scribe Documentation Reviewed: Yes Provider Attestation: The documentation as recorded by the Demario ramirez accurately reflects the service I personally performed and the decisions made by me, Jr Cheng MD Status of Scribe Document: Viewed
--- OUTSIDE RECORDS SUMMARY | 2019-02-16 13:49 | XMS REPORT | Continuity of Care Document ---
:1955 External Reference #:[id number] Author Name Bradley Hurtado M.D. Address [address] [facility] [address] [place] [address] Care Team Providers Name Role Phone HCP given Primary Care Physician Unavailable Payers Date Identification Numbers Payment Provider Subscriber Effective: 2004 Policy Number: [id number] [place] Sarahy Elena PayID: [id number] [address] [place] [address] Advance Directives Description No Information Available Problems Date Description Provider Status Onset: 05/10/2006 Disorder of lipid metabolism Bradley Hurtado M.D. Active Onset: 04/01/2009 History of malignant neoplasm of Bradley Hurtado M.D. Active prostate Onset: 05/21/2012 Benign essential hypertension Bradley Hurtado M.D. Active Onset: 05/21/2012 Coronary arteriosclerosis Bradley Hurtado M.D. Active Onset: 12/27/2012 Obstructive sleep apnea syndrome Bradley Hurtado M.D. Active Onset: 09/13/2017 History of polyp of colon Bradley Hurtado M.D. Active Onset: 09/13/2017 Impaired fasting glycaemia Bradley Hurtado M.D. Active Onset: 09/13/2017 Bilateral carpal tunnel syndrome Bradley Hurtado M.D. Active Onset: 06/02/2016 Disorder of fatty acid metabolism Bradley Hurtado M.D. Active Onset: 06/02/2016 Essential hypertension Bradley Hurtado M.D. 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 [employer] Employment Currently working Abuse No history of abuse Tobacco Use Start: Unknown End: Former Cigarette quit January 2007; was a Unknown Smoker 1/2 ppd smoker Smoking Status Reviewed: 10/08/14 Former Cigarette quit January 2007; was a Smoker 1/2 ppd smoker ETOH Use Rare Alcohol Use Recreational Drug Use Denies Drug Use Currently Active The patient is currently sexually active Contraceptive Methods Does not currently use any method of control Allergies, Adverse Reactions, Alerts Description No Known Drug Allergies Medications Medication Date Status Form Strength Qnty SIG Indications Ordering Provider Cephalexin 01/31/ Active Capsules 500mg 56caps 1 capsule by L03.115 Silcoff, 2019 mouth four Bradley, times daily x M.D. 14 days Mupirocin 12/21/ Active Cream 2% Apply Two Unknown Calcium 2019 Times A Day Fluvastatin 09/13/ Active Capsules 40mg 90caps 1 by mouth E71.30 Silcoff, Sodium 2018 every day for Bradley, high M.D. cholesterol Aspirin 03/13/ Active Tablets 325mg take 1 tablet Unknown 2018 daily, for heart protection Asmanex 10/15/ Active Aerosol 220mcg/Inh 3units Inhale 1 puff R06.00 Peng Buenohaler 60 2013 Two Times A Vinny, Metered Doses Day For D.O. Shortness Of Breath And Wheezing *Gargle After Use* R06.2 Proair 10/08/2014 Active Aerosol 108(90Base) 8.500gm 2 puffs R06.00 Silcoff, HFA mcg/Act every 4 Bradley, hours as M.D. needed for wheezing, sob R06.2 Losartan Potassium 09/21/2014 Active Tablets 50mg 1 tablet po Maghaydah, twice daily MD Shaggy Hydrochlorothiazide 12/18/2013 Active Tablets 25mg take 1 tablet I1 Maghaydah, every morning 0 Shaggy, for high MD blood pressure Nitroglycerin 05/20/2012 Active Tablets 0.4mg 1 po prn for I2 Maghaydah, Sub chest pain, 5. Shaggy may repeat 10 MD after 5min to a max of 3 doses; call 911 if pain persists Metoprolol Succinate 05/17/2012 Active Tablets ER 50mg 18 1 po bid I1 Silcoff, ER 24HR 0t 0 Lorene Huerta ab s Vitamin D3 04/16/2010 Active Tablets 1000Un 1 po qd 26 Silcoff, it 8. Lorene Huerta 9 Cephalexin 01/06/2019 - Hx Capsules 500mg 40 1 capsule by Unknown 01/16/2019 ca mouth four ps times daily x 10 days Fluvastatin Sodium 06/02/2016 - Hx Capsules 20mg 90 Take One E7 Silcoff , 09/13/2018 ca Capsule By 1. Lorene Huerta ps Mouth Every 30 Day For High Cholesterol Advair Diskus 10/08/2014 - Hx Aerosol 250-50 60 inhale 1 puff 78 Silcoff, 10/15/2014 mcg/Do un twice daily; 6. Lorene Huerta se it gargle after 09 s use 786.07 Duoderm CGF 10/08/2014 - Hx Misc 4"X4" 10units apply to 707.8 Silcoff, Dressing 09/12/2017 affected areas Bradley, on abdomen and M.D. legs, change every 2nd day; use until sores heal Niacin 09/26/2012 - Hx Tablets 500mg 2 pills daily 272.8 Silcoff, 09/21/2014 in the evening Bradley, (try aspirin M.D. 325mg 1/2hr before if flushing is a problem) Epipen 2-Bharath 09/11/2012 - Hx Device 0.3mg/0. use as directed 989.5 Unknown 09/12/2017 3ML for anaphylactic reactions to bee stings V15.06 Niacin 07/26/2012 - Hx Tablets 250mg 1 pills in the 272.8 Silcoff, 09/26/2012 evening for 1 Bradley, week then M.D. increase to 2pills every evening Crestor 05/21/2012 - Hx Tablets 10mg 90t take 1 tablet 272.8 Silcoff, 07/26/2012 abs by mouth daily Bradley for high M.D. cholesterol (to replace both simvastatin and Niacin) Losartan 05/21/2012 - Hx Tablets 50mg 90t Take One 401.1 Silcoff, Potassium 09/21/2014 abs Tablet By Bradley, Mouth Every M.D. Day For High Blood Pressure Aspirin Low 05/20/2012 - Hx Tablets 81mg 1 by mouth 414.00 Silcoff, Dose 09/21/2014 every day for anthony Huerta M.D. Niacin 05/18/2012 - Hx Capsules ER 250mg 1 by mouth 272.8 Unknown 05/21/2012 every evening for triglyceride/c holesterol lowering Lisinopril 04/24/2012 - Hx Tablets 5mg 0ta 1 by mouth 401.1 Unknown 05/21/2012 bs every morning for high blood pressure Metoprolol 04/24/2012 - Hx Tablets mg 1 by mouth 401.1 Unknown Tartrate 05/20/2012 twice a day for high blood pressure PT For Low Back 04/18/2012 - Hx please 724.2 Silcoff, And Lower Chest 09/25/2012 evaluate and Bradley Wall Pain treatLorene instruct in hep, modalities prn Enablex 09/25/2008 - Hx Tablets ER 15mg 1 PO qd for 596.8 Husseini, 04/12/2012 24HR bladder spasms MD Huy Cialis 09/25/2008 - Hx Tablets 10mg 1 every other 607.84 Husseini, 10/03/2009 day MD Huy Simvastatin 04/24/2008 - Hx Tablets 40mg 90t Take 1 Tablet 272.8 Silcoff, 12/27/2012 abs By Mouth Every Bradley, Day For High M.D. Cholesterol Benzonatate 02/29/2008 - Hx Capsules 100mg 30c 1-2 PO tid prn 786.2 Silcoff, 03/10/2008 aps For Cough Lorene Huerta Lipitor 05/18/2006 - Hx Tablets 10mg 90t 1 PO qd To 272.8 Silcoff, 02/29/2008 abs Reduce Ronnie Huerta.Adams Camwalstacia 04/05/2006 - Hx Use For Ankle Silcobenito, 05/10/2006 Pain When Bradley Walking M.D. Out Of Work 03/26/2006 - Hx PT. needs to [facility], Note 02/29/2008 be out of work Bradley until further M.D. notice; follow-up appt. scheduled for 04/02/06 Work Note 02/19/2006 - Hx sarahy march 719.47 [facility], 05/10/2006 return to work nate Huerta 02/23/06 Lorene 272.8 Aspirin 02/05/2006 - Hx Tablets 81 1 PO qd For 272.8 [facility], 02/29/2008 Heart Disease Lorene Huerta Prevention PT Referral For 02/05/2006 - Hx please evaluate 272.8 Mulugeta Hurtado Ankle Sprain 02/29/2008 and treatBradley M.D. modalities prn Work Note 01/22/2006 - Hx patient seen and 719.47 [facility], 02/19/2006 treated here. Lorene Huerta no work until recheck in 2-4 weeks. 272.8 Celebrex 07/29/2005 - Hx Capsules 200mg 6Sample 1-2 po qd 715.14 [facility], 02/29/2008 Lorene Huerta Mobic 06/26/2005 - Hx Tablets 7.5mg 60tabs take 1 719.44 klepack 02/29/2008 tablet bid after a meal 715.14 Naprosyn 06/23/2005 - Hx Tablets 500mg 60tabs 1 with food 719.44 [facility], 06/26/2005 po bid for Lorene Huerta hand pain 715.14 Work Note 06/19/2005 - Hx may return to work 719.44 Bradley Hurtado, 01/31/2006 without restriction. Lorene whether or not he will be able to tolerate this time will tell 715.14 Isosorbide - Hx Tablets ER 30mg 1 tablet I25.119 Maghaydah, Mononitrate ER 10/15/2015 24HR daily MD Shaggy I20.9 Immunizations CPT Code Status Date Vaccine Lot # [id number] Given 09/13/2018 Shingrix Zoster (Shingles) Vaccine (HZV) [id number] Recomb,Subnit,Adjuvanted 99173 Given 09/13/2018 Influenza Virus Vaccine, Quadrivalent, Split, [id number] Preservative Free 75247 Given 03/14/2018 Shingrix Zoster (Shingles) Vaccine (HZV) [id number] Recomb,Subnit,Adjuvanted 05087 Given 09/13/2017 Influenza Virus Vaccine, Quadrivalent, Split, [id number] Preservative Free 11481 Given 10/08/2014 Zostavax [id number] 85612 Given 10/08/2014 Flu, Split Virus 3Yrs [id number] 27073 Given 09/13/2013 Flu, Split Virus 3Yrs [id number] 51230 Given 10/22/2010 Adacel or Boostrix, TDaP [id number] 09578 Given 09/01/2010 Flu, Split Virus 3Yrs 07611 Given 11/29/1999 Td Immunization Vital Signs Date Vital Result Comment 01/31/2019 5:16pm BP Systolic 132 mmHg BP Diastolic 80 mmHg Weight 244.00 lb with boots 01/11/2019 10:51am BP Systolic 120 mmHg BP Diastolic 76 mmHg Body Temperature 98.4 F Weight 239.00 lb w/boots 09/13/2018 8:39am BP Systolic 120 mmHg BP Diastolic 78 mmHg Height 67.5 inches 5'7.50" with shoes Weight 235.50 lb w/shoes BMI (Body Mass Index) 36.3 kg/m2 03/14/2018 8:43am BP Systolic 128 mmHg BP Diastolic 80 mmHg Height 67.5 inches 5'7.50" with shoes Weight 240.00 lb with shoes BMI (Body Mass Index) 37.0 kg/m2 09/13/2017 2:59pm BP Systolic 132 mmHg BP Diastolic 85 mmHg Height 68 inches 5'8" with shoes Weight 241.00 lb with shoes BMI (Body Mass Index) 36.6 kg/m2 06/02/2016 8:48am BP Systolic 118 mmHg BP Diastolic 70 mmHg Height 68 inches 5'8" with work boots Weight 233.00 lb with work boots BMI (Body Mass Index) 35.4 kg/m2 11/16/2014 9:00am BP Systolic 118 mmHg BP Diastolic 84 mmHg Heart Rate 68 /min reg Respiratory Rate 14 /min not laboured Weight 236.00 lb 10/08/2014 11:55am BP Systolic 122 mmHg BP Diastolic 80 mmHg Heart Rate 66 /min reg Respiratory Rate 12 /min not laboured Height 68 inches 5'8" Weight 246.00 lb w/workboots BMI (Body Mass Index) 37.4 kg/m2 09/13/2013 9:49am BP Systolic 140 mmHg BP Diastolic 78 mmHg BP Systolic Recheck 140 mmHg R arm sitting BP Diastolic Recheck 86 mmHg R arm sitting Heart Rate 64 /min reg Height 67 inches 5'7" Weight 225.00 lb BMI (Body Mass Index) 35.2 kg/m2 08/25/2013 8:43am BP Systolic 144 mmHg 135/86, 5 min later BP Diastolic 90 mmHg 135/86, 5 min later 07/29/2013 9:26am BP Systolic 132 mmHg BP Diastolic 86 mmHg 03/15/2013 9:07am BP Systolic 112 mmHg BP Diastolic 78 mmHg BP Systolic Recheck 136 mmHg R arm sitting BP Diastolic Recheck 82 mmHg R arm sitting Weight 230.00 lb 12/27/2012 10:06am BP Systolic 151 mmHg L arm w /his cuff BP Diastolic 91 mmHg L arm w /his cuff BP Systolic Recheck 136 mmHg L arm w/ our cuff; 130/78 R arm our cuff BP Diastolic Recheck 80 mmHg L arm w/ our cuff; 130/78 R arm our cuff Heart Rate 64 /min reg Height 68 inches 5'8" Weight 230.00 lb BMI (Body Mass Index) 35.0 kg/m2 12/27/2012 9:30am BP Systolic 120 mmHg office bp cuff BP Diastolic 78 mmHg office bp cuff BP Systolic Recheck 140 mmHg pt bp cuff/mach BP Diastolic Recheck 80 mmHg pt bp cuff/mach Height 68 inches 5'8" Weight 230.00 lb BMI (Body Mass Index) 35.0 kg/m2 Last Menstrual Period 0 09/26/2012 9:24am BP Systolic 148 mmHg BP Diastolic 90 mmHg BP Systolic Recheck 150 mmHg R arm sitting BP Diastolic Recheck 92 mmHg R arm sitting Heart Rate 80 /min reg Weight 231.00 lb 07/26/2012 4:51pm BP Systolic 134 mmHg BP Diastolic 80 mmHg Weight 229.00 lb w/shoes 05/21/2012 9:28am BP Systolic 114 mmHg BP Diastolic 76 mmHg BP Systolic Recheck 136 mmHg R arm sitting BP Diastolic Recheck 82 mmHg R arm sitting Weight 223.00 lb 04/18/2012 9:54am BP Systolic 130 mmHg BP Diastolic 96 mmHg BP Systolic Recheck 168 mmHg R arm sitting; 156/102 L arm BP Diastolic Recheck 100 mmHg R arm sitting; 156/102 L arm Height 69 inches 5'9" Weight 232.00 lb BMI (Body Mass Index) 34.3 kg/m2 Last Menstrual Period 0 04/14/2012 9:54am BP Systolic 166 mmHg BP Diastolic 104 mmHg 04/17/2011 10:02am BP Systolic 134 mmHg BP Diastolic 80 mmHg BP Systolic Recheck 142 mmHg R arm sitting BP Diastolic Recheck 90 mmHg R arm sitting Height 67.50 inches 5'7.50" Weight 220.00 lb BMI (Body Mass Index) 33.9 kg/m2 10/22/2010 3:42pm BP Systolic 138 mmHg BP Diastolic 98 mmHg BP Systolic Recheck 144 mmHg R arm sitting; 156/98 at end of visit BP Diastolic Recheck 92 mmHg R arm sitting; 156/98 at end of visit Heart Rate 80 /min reg Height 68 inches 5'8" Weight 215.00 lb BMI (Body Mass Index) 32.7 kg/m2 Last Menstrual Period 0 04/04/2010 8:59am BP Systolic 126 mmHg BP Diastolic 90 mmHg Weight 207.00 lb Last Menstrual Period 0 10/04/2009 8:57am BP Systolic 124 mmHg BP Diastolic 82 mmHg Weight 212.00 lb Last Menstrual Period 0 04/01/2009 9:00am BP Systolic 128 mmHg BP Diastolic 80 mmHg Weight 206.00 lb 09/25/2008 4:07pm BP Systolic 122 mmHg BP Diastolic 78 mmHg Height 68.50 inches 5'8.50" Weight 200.00 lb fully dressed w/ shoes and keys BMI (Body Mass Index) 30.0 kg/m2 06/13/2008 2:17pm BP Systolic 146 mmHg BP Diastolic 90 mmHg Height 68.50 inches 5'8.50" Weight 201.00 lb BMI (Body Mass Index) 30.1 kg/m2 04/24/2008 10:46am BP Systolic 138 mmHg BP Diastolic 82 mmHg Height 68.50 inches 5'8.50" Weight 195.00 lb BMI (Body Mass Index) 29.2 kg/m2 Last Menstrual Period 0 02/29/2008 2:10pm BP Systolic 110 mmHg BP Diastolic 82 mmHg Heart Rate 76 /min reg Respiratory Rate 14 /min not laboured Body Temperature 99.3 F Height 68.50 inches 5'8.50" Weight 185.00 lb BMI (Body Mass Index) 27.7 kg/m2 05/18/2006 9:30am BP Systolic 126 mmHg BP Diastolic 72 mmHg Height 68.50 inches 5'8.50" Weight 185.00 lb BMI (Body Mass Index) 27.7 kg/m2 05/10/2006 8:44am BP Systolic 130 mmHg BP Diastolic 78 mmHg Weight 187.50 lb 04/02/2006 1:36pm BP Systolic 128 mmHg BP Diastolic 72 mmHg Height 67.50 inches 5'7.50" Weight 187.50 lb BMI (Body Mass Index) 28.9 kg/m2 03/02/2006 1:52pm BP Systolic 128 mmHg BP Diastolic 70 mmHg Height 67.50 inches 5'7.50" 02/05/2006 11:25am BP Systolic 120 mmHg BP Diastolic 80 mmHg Height 67.50 inches 5'7.50" Weight 194.00 lb BMI (Body Mass Index) 29.9 kg/m2 01/22/2006 9:02am BP Systolic 128 mmHg BP Diastolic 76 mmHg Height 67.50 inches 5'7.50" 07/29/2005 2:49pm BP Systolic 124 mmHg BP Diastolic 70 mmHg Height 67.50 inches 5'7.50" Weight 188.00 lb BMI (Body Mass Index) 29.0 kg/m2 06/26/2005 2:07pm BP Systolic 144 mmHg BP Diastolic 82 mmHg Height 67.50 inches 5'7.50" 06/23/2005 4:49pm BP Systolic 110 mmHg BP Diastolic 70 mmHg BP Systolic Recheck 118 mmHg r Arm Sitting BP Diastolic Recheck 74 mmHg r Arm Sitting Heart Rate 72 /min Reg Height 67.50 inches 5'7.50" Weight 184.00 lb BMI (Body Mass Index) 28.4 kg/m2 06/19/2005 9:42am BP Systolic 140 mmHg BP Diastolic 100 mmHg Height 68 inches 5'8" Weight 191.00 lb BMI (Body Mass Index) 29.0 kg/m2 Results Test Date Facility Test Result H/L Range Note Wound 01/06/2019 [facility] Wound/Misc SEE RESULT 1, 2 Culture/Sensi [phone] Culture-Gram BELOW Stain Laboratory test 01/06/2019 [facility] MRSA/S Aureus SEE RESULT 3 finding [phone] Ssti PCR BELOW Urine Micro 09/13/2018 [facility] WBC - 4 [facility]house [facility] RBC - Ua Casts - Ua Epi TNTC Ua Other - Ua Glucose - Ua Bilirubin - Ua Ketones - Ua Specific [place] 1.015 Ua Blood - Ua PH 6.5 Ua Protein - Ua Urobilinogen - Ua Nitrite - Ua Leukocytes - Laboratory test 09/08/2018 [facility] LDL Cholesterol 120 mg/dL 5 finding [phone] Direct CBC Auto Diff 09/08/2018 [facility] White Blood Count 4.3 10^3/uL N 3.5-10. [phone] Red Blood Count 5.25 10^6/uL N 4.00-5.40 Hemoglobin 15.4 g/dL N 14.0-18.0 Hematocrit 45 % N 42-52 Mean Corpuscular Volume 85 fL N 80-94 Mean Corpuscular Hemoglobin 29 pg N 27-31 Mean Corpuscular HGB Conc 35 g/dL N 31-36 Red Cell Distribution Width 14 % N 10.5-15 Platelet Count 168 10^3/uL N 150-450 Mean Platelet Volume 7.9 um3 N 7.4-10.4 Abs Neutrophils 2.0 10^3/uL N 1.5-7.7 Abs Lymphocytes 1.7 10^3/uL N 1.0-4.8 Abs Monocytes 0.4 10^3/uL N 0-0.8 Abs Eosinophils 0.2 10^3/uL N 0-0.6 Abs Basophils 0 10^3/uL N 0-0.2 Abs Nucleated RBC 0 10^3/uL Granulocyte % 46.6 % N 38-83 Lymphocyte % 38.7 % N 25-47 Monocyte % 9.5 % High 0-7 Eosinophil % 4.2 % N 0-6 Basophil % 1.0 % N 0-2 Nucleated Red Blood Cells % 0.7 Basic Metabolic Panel 09/08/2018 [facility] Sodium 138 mmol/L N 135- 145 [phone] Potassium 3.8 mmol/L N 3.5-5.0 Chloride 101 mmol/L N 101-111 Co2 Carbon Dioxide 28 mmol/L N 22-32 Anion Gap 9 mmol/L N 2-11 Glucose 104 mg/dL High 70-100 Blood Urea Nitrogen 18 mg/dL N 6-24 Creatinine 1.00 mg/dL N 0.67-1.17 BUN/Creatinine Ratio 18.0 N 8-20 Calcium 9.8 mg/dL N 8.6-10.3 Egfr Non- 76.2 >60 Egfr 92.2 >60 6 Laboratory test 09/08/2018 [facility] Alt (SGPT) 27 U/L N 7-52 finding [phone] Laboratory test 09/08/2018 [facility] PSA Diagnostic < 0.008 N 0- 4.000 7 finding [phone] Lipid Profile 09/08/2018 [facility] Triglycerides 598 mg/dL 8 (Trig/Chol/HDL) [phone] Cholesterol 234 mg/dL 9 HDL Cholesterol 34.8 mg/dL 10 LDL Cholesterol (SEE NOTE) mg/dL 11 Laboratory test finding 03/14/2018 In House Hemoglobin A1c 5.2 Urine Micro Inhouse 09/13/2017 [facility] House Ua WBC - Ua RBC - Ua Casts 1 Ua Epi TNTC Ua Other - Ua Glucose - Ua Bilirubin - Ua Ketones - Ua Specific [place] 1.025 Ua Blood - Ua PH 5.0 Ua Protein - Ua Urobilinogen - Ua Nitrite - Ua Leukocytes - CBC Auto Diff 09/06/2017 [facility] White Blood Count 5.1 10^3/uL N 3.5-10.8 [phone] Red Blood Count 5.14 10^6/uL N 4.0-5.4 Hemoglobin 15.9 g/dL N 14.0-18.0 Hematocrit 45 % N 42-52 Mean Corpuscular Volume 88 fL N 80-94 Mean Corpuscular Hemoglobin 31 pg N 27-31 Mean Corpuscular HGB Conc 35 g/dL N 31-36 Red Cell Distribution Width 14 % N 10.5-15 Platelet Count 170 10^3/uL N 150-450 Mean Platelet Volume 8 um3 N 7.4-10.4 Abs Neutrophils 2.7 10^3/uL N 1.5-7.7 Abs Lymphocytes 1.7 10^3/uL N 1.0-4.8 Abs Monocytes 0.4 10^3/uL N 0-0.8 Abs Eosinophils 0.2 10^3/uL N 0-0.6 Abs Basophils 0 10^3/uL N 0-0.2 Abs Nucleated RBC 0 10^3/uL N Granulocyte % 53.1 % N 38-83 Lymphocyte % 33.8 % N 25-47 Monocyte % 8.7 % N 1-9 Eosinophil % 4.0 % N 0-6 Basophil % 0.4 % N 0-2 Nucleated Red Blood Cells % 0.1 N Iron & Iron Binding Capacity 09/06/2017 [facility] Iron 87 g/dL N 50-212 [phone] Unsaturated Iron Binding 323 g/dL N Total Iron Binding Capacity 410 g/dL N 250-450 % Iron Saturation 21 % N 15-55 Laboratory test 09/06/2017 [facility] Ferritin 23.8 ng/mL Low 24-336 12 finding [phone] Lipid Profile 09/06/2017 [facility] Triglycerides 445 mg/dL N 13 (Trig/Chol/HDL) [phone] Cholesterol 222 mg/dL N 14 HDL Cholesterol 35.7 mg/dL N 15 LDL Cholesterol (SEE NOTE) mg/dL N 16 Basic Metabolic Panel 09/06/2017 [facility] Sodium 138 mmol/L N 133- 145 [phone] Potassium 3.5 mmol/L N 3.5-5.0 Chloride 102 mmol/L N 101-111 Co2 Carbon Dioxide 28 mmol/L N 22-32 Anion Gap 8 mmol/L N 2-11 Glucose 104 mg/dL High 70-100 Blood Urea Nitrogen 10 mg/dL N 6-24 Creatinine 0.87 mg/dL N 0.67-1.17 BUN/Creatinine Ratio 11.5 N 8-20 Calcium 9.2 mg/dL N 8.6-10.3 Egfr Non- 89.8 N >60 Egfr 115.5 N >60 17 Laboratory test finding 09/06/2017 [facility] Alt 23 U/L N 7-52 18 [phone] PSA Diagnostic < 0.008 ng/mL N 0-4.000 19 CBC Auto Diff 06/09/2016 [facility] White Blood Count 5.4 10^3/uL N 3.5-10.8 [phone] Red Blood Count 4.83 10^6/uL N 4.0-5.4 Hemoglobin 12.4 g/dL Low 14.0-18.0 Hematocrit 37 % Low 42-52 Mean Corpuscular Volume 77 fL Low 80-94 Mean Corpuscular Hemoglobin 26 pg Low 27-31 Mean Corpuscular HGB Conc 33 g/dL N 31-36 Red Cell Distribution Width 14 % N 10.5-15 Platelet Count 199 10^3/uL N 150-450 Mean Platelet Volume 7 um3 Low 7.4-10.4 Abs Neutrophils 3.2 10^3/uL N 1.5-7.7 Abs Lymphocytes 1.5 10^3/uL N 1.0-4.8 Abs Monocytes 0.6 10^3/uL N 0-0.8 Abs Eosinophils 0.1 10^3/uL N 0-0.6 Abs Basophils 0 10^3/uL N 0-0.2 Abs Nucleated RBC 0 10^3/uL N Granulocyte % 59.1 % N 38-83 Lymphocyte % 28.2 % N 25-47 Monocyte % 10.7 % High 1-9 Eosinophil % 1.7 % N 0-6 Basophil % 0.3 % N 0-2 Nucleated Red Blood Cells % 0 N Laboratory test finding 06/09/2016 [facility] Lactic Acid 1.4 mmol/L N 0.5-2.0 20 [phone] Comp Metabolic Panel 06/09/2016 [facility] Sodium 137 mmol/L N 133- 145 [phone] Potassium 3.5 mmol/L N 3.5-5.0 Chloride 104 mmol/L N 101-111 Co2 Carbon Dioxide 26 mmol/L N 22-32 Anion Gap 7 mmol/L N 2-11 Glucose 98 mg/dL N 70-100 Blood Urea Nitrogen 11 mg/dL N 6-24 Creatinine 0.83 mg/dL N 0.67-1.17 BUN/Creatinine Ratio 13.3 N 8-20 Calcium 9.0 mg/dL N 8.6-10.3 Total Protein 7.2 g/dL N 6.4-8.9 Albumin 4.1 g/dL N 3.2-5.2 Globulin 3.1 g/dL N 2-4 Albumin/Globulin Ratio 1.3 N 1-3 Total Bilirubin 0.50 mg/dL N 0.2-1.0 Alkaline Phosphatase 65 U/L N 34-104 Alt 28 U/L N 7-52 Ast 25 U/L N 13-39 Egfr Non- 95.2 N >60 Egfr 122.4 N >60 21 Laboratory test finding 06/09/2016 [facility] Magnesium 2.0 mg/dL N 1.9-2.7 [phone] Lipase 21 U/L N 11.0-82.0 C Reactive Protein < 1.00 mg/L N < 5.00 22 Urinalysis Profile 06/09/2016 [facility] Urine Color Yellow N [phone] Urine Appearance Cloudy N Urine Specific [place] 1.025 N 1.010-1.030 Urine pH 5.0 N 5-9 Urine Urobilinogen Negative N Negative Urine Ketones Negative N Negative Urine Protein 1+(30 mg/dL) Abnormal Negative Urine Leukocytes Negative N Negative Urine Blood Negative N Negative Urine Nitrite Negative N Negative Urine Bilirubin Negative N Negative Urine Glucose Negative N Negative Urine White Blood Cell Absent N Absent Urine Red Blood Cell Absent N Absent Urine Bacteria Absent N Absent Urine Squamous Epithelial Cell Present Abnormal Absent Urine Granular Casts Present Abnormal Absent Basic Metabolic Panel 02/19/2016 [facility] Sodium 136 mmol/L N 133- 145 [phone] Potassium 3.8 mmol/L N 3.5-5.0 Chloride 99 mmol/L Low 101-111 Co2 Carbon Dioxide 31 mmol/L N 22-32 Anion Gap 6 mmol/L N 2-11 Glucose 85 mg/dL N 70-100 Blood Urea Nitrogen 10 mg/dL N 6-24 Creatinine 0.88 mg/dL N 0.67-1.17 BUN/Creatinine Ratio 11.4 N 8-20 Calcium 9.8 mg/dL N 8.6-10.3 Egfr Non- 88.9 N >60 Egfr 114.4 N >60 23 Basic Metabolic Panel 11/16/2014 [facility] Sodium 135 mmol/L N 133- 145 [phone] Potassium 3.9 mmol/L N 3.5-5.0 Chloride 100 mmol/L Low 101-111 Co2 Carbon Dioxide 28 mmol/L N 22-32 Anion Gap 7 mmol/L N 2-11 Glucose 92 mg/dL N 70-100 Blood Urea Nitrogen 14 mg/dL N 6-24 Creatinine 0.91 mg/dL N 0.67-1.17 BUN/Creatinine Ratio 15.4 N 8-20 Calcium 9.9 mg/dL N 8.6-10.3 Egfr Non- 85.9 N >60 Egfr 110.4 N >60 24 Laboratory test 11/16/2014 [facility] Hepatitis C Nonreactive N Nonreactive finding [phone] Antibody PSA Screening < 0.008 ng/mL N 0-4.0 25 Laboratory test 05/11/2014 [facility] PSA Diagnostic < 0.008 ng/mL 0 -4.0 26 finding [phone] Basic Metabolic 12/22/2013 [facility] Sodium 138 mmol/L 133-145 Panel [phone] Potassium 4.1 mmol/L 3.5-5.0 Chloride 100 mmol/L Low 101-111 Co2 Carbon Dioxide 30.0 mmol/L 22-32 Anion Gap 8.0 mmol/L 2-11 Glucose 106 mg/dL High 70-100 Blood Urea Nitrogen 15 mg/dL 6-24 Creatinine 0.90 mg/dL 0.50-1.40 BUN/Creatinine Ratio 16.7 8-20 Calcium 10.4 mg/dL High 8.1-9.9 Egfr Non- 87.3 >60 Egfr 112.3 >60 27 Laboratory test 12/22/2013 [facility] PSA Screening < 0.008 0-4.0 28 finding [phone] Laboratory test 07/29/2013 [facility] Surgical RUN DATE: 29 finding [phone] Pathology 08/03/ <SEE NOTE> Laboratory test 05/09/2013 [facility] PSA Diagnostic 0.00 ng/mL 0- 4.0 30 finding [phone] CBC Auto Diff 01/19/2013 [facility] White Blood Count 5.2 10^3/uL 4.8-10.8 [phone] Red Blood Count 5.42 10^6/uL High 4.0-5.4 Hemoglobin 16.8 g/dL 14.0-18.0 Hematocrit 48 % 42-52 Mean Corpuscular Volume 88 fL 80-94 Mean Corpuscular Hemoglobin 31 pg 27-31 Mean Corpuscular HGB Conc 35 g/dL 31-36 Red Cell Distribution Width 13 % 10.5-15 Platelet Count 199 10^3/uL 150-450 Mean Platelet Volume 8 um3 7.4-10.4 Abs Neutrophils 2.3 10^3/uL 1.5-7.7 Abs Lymphocytes 2.4 10^3/uL 1.0-4.8 Abs Monocytes 0.4 10^3/uL 0-0.8 Abs Eosinophils 0.1 10^3/uL 0-0.6 Abs Basophils 0 10^3/uL 0-0.2 Abs Nucleated RBC 0 10^3/uL Granulocyte % 44.4 % 38-83 Lymphocyte % 45.6 % 25-47 Monocyte % 7.7 % 1-9 Eosinophil % 1.8 % 0-6 Basophil % 0.5 % 0-2 Nucleated Red Blood Cells % 0 Comp Metabolic Panel 01/19/2013 [facility] Sodium 136 mmol/L 133- 145 [phone] Potassium 3.8 mmol/L 3.5-5.0 Chloride 103 mmol/L 101-111 Co2 Carbon Dioxide 24.0 mmol/L 22-32 Anion Gap 9.0 mmol/L 2-11 Glucose 93 mg/dL 70-100 Blood Urea Nitrogen 9 mg/dL 6-24 Creatinine 0.90 mg/dL 0.50-1.40 BUN/Creatinine Ratio 10.0 8-20 Calcium 9.3 mg/dL 8.1-9.9 Total Protein 7.1 g/dL 6.2-8.1 Albumin 4.0 g/dL 3.6-5.4 Globulin 3.1 g/dL 2-4 Albumin/Globulin Ratio 1.3 1-3 Total Bilirubin 0.8 mg/dL 0.4-1.5 Alkaline Phosphatase 69 U/L 30-110 Alt 25 U/L 14-54 Ast 29 U/L 12-42 Egfr Non- 87.6 >60 Egfr 112.7 >60 31 Urinalysis 01/19/2013 [facility] Urine Color Yellow [phone] Urine Appearance Clear Urine Specific [place] 1.020 1.010-1.030 Urine Esterase Negative Negative Urine Nitrate Negative Negative Urine Urobilinogen Negative E.U./dL Negative Urine Protein Negative mg/dL Negative Urine pH 6.0 5-9 Urine Blood Negative Negative Urine Ketones Negative mg/dL Negative Urine Bilirubin Negative Negative Urine Glucose Negative mg/dL Negative Laboratory test 11/07/2012 [facility] PSA Screening 0.00 ng/mL 0- 4.0 32 finding [phone] Laboratory test 07/31/2012 [facility] Troponin-I 0.01 NG/ML 0-0.06 33 finding [phone] CBC Auto Diff 07/31/2012 [facility] White Blood 9.6 CUMM 4.8-10.8 [phone] Count Red Cell Count 4.97 CUMM 4.6-6.2 Hemoglobin 16.1 g/dL 14.0-18.0 Hematocrit 44 % 42-52 Mean Corpuscular Volume 89 um3 80-94 Mean Corpuscular Hemoglob 33 pg High 27-31 Mean Corpuscular HGB Cone 37 g/dL High 32-36 Redcell Distribution WDTH 13 % 10.5-15 Platelet Count 185 CUMM 150-450 Mean Platelet Volume 7.6 um3 7.4-10.4 Gran % 75.2 % 38-83 Lymph % 17.1 % Low 20-45 Mononuclear % 6.9 % 1-9 Eosinophil % 0.4 % 0-6 Basophil % 0.4 % 0-2 Abs Lymphs 1.6 1.0-4.8 Abs Mononuclear 0.7 0-0.8 Absolute Neutrophil Count 7.2 1.5-7.7 Abs Eosinophils 0 0-0.6 Abs Basophils 0 0-0.2 Comp Metabolic Panel 07/31/2012 [facility] Sodium 138 mmol/L 135- 145 [phone] Potassium 3.8 mmol/L 3.5-5.0 Chloride 105 mmol/L 101-111 Co2 (Carbon Dioxide) 23.0 mmol/L 22-32 Anion Gap 10.0 mmol/L 2-11 34 Glucose 101 mg/dL High 70-100 BUN 11 mg/dL 6-24 Creatinine 0.9 mg/dL 0.50-1.40 One Over Creatinine 1.11 BUN/Creatinine Ratio 12.2 8-20 Calcium 9.7 mg/dL 8.1-9.9 Total Protein 7.3 GM/DL 6.2-8.1 Albumin 4.3 GM/DL 3.6-5.4 Globulin 3.0 GM/DL 2-4 Albumin/Globulin Ratio 1.4 1-3 Bilirubin Total 0.7 mg/dL 0.4-1.5 35 Alkaline Phosphatase 69 U/L 39-117 Alt (SGPT) 41 U/L 17-63 Ast (Sgot) 36 U/L 12-42 eGFR Non- 87.9 > 60 eGFR 113.1 > 60 36 Laboratory test finding 07/31/2012 [facility] Troponin-I 0.02 NG/ML 0-0.06 37 [phone] Basic Metabolic Panel 07/22/2012 [facility] Sodium 138 mmol/L 135- 145 [phone] Potassium 3.9 mmol/L 3.5-5.0 Chloride 105 mmol/L 101-111 Co2 (Carbon Dioxide) 27.0 mmol/L 22-32 Anion Gap 6.0 mmol/L 2-11 38 Glucose 96 mg/dL 70-100 BUN 11 mg/dL 6-24 Creatinine 0.9 mg/dL 0.50-1.40 One Over Creatinine 1.11 BUN/Creatinine Ratio 12.2 8-20 Calcium 9.3 mg/dL 8.1-9.9 eGFR Non- 87.9 > 60 eGFR 113.1 > 60 39 Laboratory test 07/22/2012 [facility] Alt (SGPT) 38 U/L 17-63 finding [phone] Lipid Profile 07/22/2012 [facility] Triglyceride 511 mg/dL High 40- 200 (Trig/Chol/HDL) [phone] Cholesterol 188 mg/dL Less Than 200 40 High Density Lipoprotein 31 mg/dL Low 40-60 41 Cholesterol/HDL Ratio 6.06 AVERAGE High 1-4.97 Low Density Lipoprotein (SEE NOTE) mg/dL Less Than 100 42 Surgical 06/09/2012 [facility] Surgical 43 Pathology [phone] Pathology <SEE NOTE> Laboratory test 06/03/2012 [facility] TSH 0.55 MIU/ML 0.34 finding [phone] Blood Culture 04/22/2012 [facility] M 44 [phone] <SEE NOTE> CBC Auto Diff 04/22/2012 [facility] White Blood 4.6 CUMM Low 4.8- [phone] Count 10.8 Red Cell Count 5.20 CUMM 4.6-6.2 Hemoglobin 16.6 g/dL 14.0-18.0 Hematocrit 47 % 42-52 Mean Corpuscular Volume 88 um3 80-94 Mean Corpuscular Hemoglob 32 pg High 27-31 Mean Corpuscular HGB Cone 37 g/dL High 32-36 Redcell Distribution WDTH 13 % 10.5-15 Platelet Count 180 CUMM 150-450 Mean Platelet Volume 7.7 um3 7.4-10.4 Gran % 61.5 % 38-83 Lymph % 27.8 % 25-47 Mononuclear % 7.1 % 1-9 Eosinophil % 3.2 % 0-6 Basophil % 0.4 % 0-2 Abs Lymphs 1.3 1.0-4.8 Abs Mononuclear 0.3 0-0.8 Absolute Neutrophil Count 2.8 1.5-7.7 Abs Eosinophils 0.1 0-0.6 Abs Basophils 0 0-0.2 45 Protime 04/22/2012 [facility] Inr 0.85 Low 0.88-1.13 46 [phone] Protime 10.0 SEC Low 10.3-13.5 47 Laboratory test finding 04/22/2012 [facility] PTT (Aptt) 30.4 SEC 25.1-38.5 [phone] Dimer Quantitative < 200 NG/ML Less Than 230 48 Comp Metabolic Panel 04/22/2012 [facility] Sodium 137 mmol/L 135- 145 [phone] Potassium 4.0 mmol/L 3.5-5.0 Chloride 103 mmol/L 101-111 Co2 (Carbon Dioxide) 29.0 mmol/L 22-32 Anion Gap 5.0 mmol/L 2-11 49 Glucose 103 mg/dL High 70-100 BUN 13 mg/dL 6-24 Creatinine 0.8 mg/dL 0.50-1.40 One Over Creatinine 1.25 BUN/Creatinine Ratio 16.3 8-20 Calcium 8.9 mg/dL 8.1-9.9 Total Protein 7.8 GM/DL 6.2-8.1 Albumin 4.1 GM/DL 3.6-5.4 Globulin 3.7 GM/DL 2-4 Albumin/Globulin Ratio 1.1 1-3 Bilirubin Total 1.0 mg/dL 0.4-1.5 50 Alkaline Phosphatase 64 U/L 39-117 Alt (SGPT) 41 U/L 17-63 Ast (Sgot) 37 U/L 12-42 eGFR Non- 100.7 > 60 eGFR 129.6 > 60 51 Laboratory test 04/22/2012 [facility] CPK (Creatine 205 U/L High 0- 200 finding [phone] Kinase) Troponin-I 0.01 NG/ML 0-0.06 52 Amylase 45 U/L 20-120 53 Lipase 29 U/L 22-51 CBC Auto Diff 04/19/2012 [facility] White Blood Count 4.1 CUMM Low 4.8-10.8 [phone] Red Cell Count 5.19 CUMM 4.6-6.2 Hemoglobin 16.7 g/dL 14.0-18.0 Hematocrit 48 % 42-52 Mean Corpuscular Volume 88 um3 80-94 Mean Corpuscular Hemoglob 32 pg High 27-31 Mean Corpuscular HGB Cone 37 g/dL High 32-36 Redcell Distribution WDTH 13 % 10.5-15 Platelet Count 179 CUMM 150-450 Mean Platelet Volume 7.4 um3 7.4-10.4 Gran % 60.1 % 38-83 Lymph % 30.8 % 25-47 Mononuclear % 7.3 % 1-9 Eosinophil % 1.4 % 0-6 Basophil % 0.4 % 0-2 Abs Lymphs 1.3 1.0-4.8 Abs Mononuclear 0.3 0-0.8 Absolute Neutrophil Count 2.5 1.5-7.7 Abs Eosinophils 0.1 0-0.6 Abs Basophils 0 0-0.2 54 Protime 04/19/2012 [facility] Inr 0.84 Low 0.88-1.13 55 [phone] Protime 9.9 SEC Low 10.3-13.5 56 Laboratory test finding 04/19/2012 [facility] PTT (Aptt) 29.7 SEC 25.1-38.5 [phone] Comp Metabolic Panel 04/19/2012 [facility] Sodium 135 mmol/L 135- 145 [phone] Potassium 3.9 mmol/L 3.5-5.0 Chloride 102 mmol/L 101-111 Co2 (Carbon Dioxide) 25.0 mmol/L 22-32 Anion Gap 8.0 mmol/L 2-11 57 Glucose 114 mg/dL High 70-100 BUN 8 mg/dL 6-24 Creatinine 0.8 mg/dL 0.50-1.40 One Over Creatinine 1.25 BUN/Creatinine Ratio 10.0 8-20 Calcium 9.1 mg/dL 8.1-9.9 Total Protein 7.4 GM/DL 6.2-8.1 Albumin 4.2 GM/DL 3.6-5.4 Globulin 3.2 GM/DL 2-4 Albumin/Globulin Ratio 1.3 1-3 Bilirubin Total 0.9 mg/dL 0.4-1.5 58 Alkaline Phosphatase 66 U/L 39-117 Alt (SGPT) 35 U/L 17-63 Ast (Sgot) 34 U/L 12-42 eGFR Non- 100.7 > 60 eGFR 129.6 > 60 59 Urinalysis W/Microscopic 04/19/2012 [facility] Ua Color YELLOW Yellow [phone] Appearance-Urine CLEAR Clear Specific [place]-Ur 1.024 1.010-1.030 Esterase-Urine NEGATIVE Negative Nitrite NEGATIVE Negative [id number] NEGATIVE Negative Protein-Urine 1+ Abnormal Negative PH-Urine 6.0 5-9 Blood-Urine NEGATIVE Negative Ketones-Urine NEGATIVE Negative Bilirubin-Ur NEGATIVE Negative Glucose-Urine NEGATIVE Negative WBC-Urine 0-2 0-5 RBC-Urine NONE SEEN 0-2 Epith Cells-Ur RARE None Bacteria-Urine RARE None Urine Micro Inhouse 04/18/2012 In House Ua WBC 1-2 Ua RBC 0-1 Ua Casts - Ua Epi 0-3 Ua Other - Ua Glucose - Ua Bilirubin sm Ua Ketones - Ua Specific [place] 1.015 Ua Blood - Ua PH 6.0 Ua Protein 1+ Ua Urobilinogen - Ua Nitrite - Ua Leukocytes - Laboratory test 04/18/2012 In House Hemoglobin 17.7 finding Xray 04/18/2012 [facility] X-Ray, Chest, 2 mild COPD Views changes Laboratory test 04/14/2012 [facility] PSA 0.00 NG/ML 0-4 60 finding [phone] Laboratory test 04/14/2012 [facility] Alt (SGPT) 39 U/L 17-63 finding [phone] Lipid Profile 04/14/2012 [facility] Triglyceride 413 mg/dL High 40- 20 (Trig/Chol/HDL) [phone] 0 Cholesterol 227 mg/dL High Less Than 200 61 High Density Lipoprotein 34 mg/dL Low 40-60 62 Cholesterol/HDL Ratio 6.68 AVERAGE High 1-4.97 Low Density Lipoprotein (SEE NOTE) mg/dL Less Than 100 63 Basic Metabolic Panel 04/14/2012 [facility] Sodium 136 mmol/L 135- 145 [phone] Potassium 3.9 mmol/L 3.5-5.0 Chloride 103 mmol/L 101-111 Co2 (Carbon Dioxide) 28.0 mmol/L 22-32 Anion Gap 5.0 mmol/L 2-11 64 Glucose 94 mg/dL 70-100 BUN 9 mg/dL 6-24 Creatinine 0.8 mg/dL 0.50-1.40 One Over Creatinine 1.25 BUN/Creatinine Ratio 11.3 8-20 Calcium 9.0 mg/dL 8.1-9.9 eGFR Non- 100.7 > 60 eGFR 129.6 > 60 65 Laboratory test 09/15/2011 [facility] PSA Screening 0.00 NG/ML 0-4 66 finding [phone] Lipid Profile 04/16/2011 [facility] Triglyceride 219 mg/dL High 40- 200 (Trig/Chol/HDL) [phone] Cholesterol 189 mg/dL Less Than 200 67 High Density Lipoprotein 39 mg/dL Low 40-60 68 Cholesterol/HDL Ratio 4.85 AVERAGE 1-4.97 Low Density Lipoprotein 106 mg/dL High Less Than 100 69 Laboratory test finding 04/16/2011 [facility] Alt (SGPT) 29 U/L 17- 63 [phone] Ua Inhouse 10/24/2010 In House Ua Glucose - Ua Bilirubin - Ua Ketones - Ua Specific [place] 1.010 Ua Blood - Ua PH 5.0 Ua Protein - Ua Urobilinogen - Ua Nitrite - Ua Leukocytes - Laboratory test 09/12/2010 [facility] PSA,Diagnostic 0.00 NG/ML 0-4 70 finding [phone] CBC With 04/04/2010 [facility] White Blood Count 4.9 CUMM 4.8-10.8 Electronic Diff [phone] Red Cell Count 5.19 CUMM 4.6-6.2 Hemoglobin 16.3 g/dL 14.0-18.0 Hematocrit 46 % 42-52 Mean Corpuscular Volume 88 um3 80-94 Mean Corpuscular Hemoglob 31 pg 27-31 Mean Corpuscular HGB Cone 36 g/dL 32-36 Redcell Distribution WDTH 13 % 10.5-15 Platelet Count 196 CUMM 150-450 Mean Platelet Volume 7.5 um3 7.4-10.4 Gran % 53.7 % 38-83 Lymph % 33.7 % 25-47 Mononuclear % 9.3 % High 1-9 Eosinophil % 2.9 % 0-6 Basophil % 0.4 % 0-2 Abs Lymphs 1.6 1.0-4.8 Abs Mononuclear 0.5 0-0.8 Absolute Neutrophil Count 2.6 1.5-7.7 Abs Eosinophils 0.1 0-0.6 Abs Basophils 0 0-0.2 71 Basic Metabolic Panel 04/04/2010 [facility] Sodium 136 mmol/L 135- 145 [phone] Potassium 3.8 mmol/L 3.5-5.0 Chloride 101 mmol/L 101-111 Co2 (Carbon Dioxide) 25.0 mmol/L 22-32 Anion Gap 10.0 mmol/L 2-11 72 Glucose 96 mg/dL 70-100 73 BUN 8 mg/dL 6-24 Creatinine 0.80 mg/dL 0.50-1.40 One Over Creatinine 1.20 BUN/Creatinine Ratio 10.0 8-20 Calcium 9.5 mg/dL 8.1-9.9 74 eGFR Non- 107.9 > 60 eGFR 130.5 > 60 75 Laboratory test 04/04/2010 [facility] TSH 0.56 MIU/ML 0.34-5.60 finding [phone] Vitamin D, 25 04/04/2010 [facility] 25-Hydroxy <4.0 ng/mL () Hydroxy [phone] Vitamin D2 25-Hydroxy Vitamin D3 19 ng/mL () 25-Hydroxy Vitamin D Total 19 ng/mL Abnormal () 76 Lipid Profile 03/26/2010 [facility] Triglyceride 330 mg/dL High 40- 200 (Trig/Chol/HDL) [phone] Cholesterol 210 mg/dL High Less Than 200 77 High Density Lipoprotein 34 mg/dL Low 40-60 78 Cholesterol/HDL Ratio 6.18 AVERAGE High 1-4.97 Low Density Lipoprotein 110 mg/dL High Less Than 100 79 Laboratory test finding 03/26/2010 [facility] Alt (SGPT) 32 U/L 17- 92 [phone] Glucose 93 mg/dL 70-100 80 Laboratory test 09/27/2009 [facility] Alt (SGPT) 31 U/L 17-63 finding [phone] Lipid Profile 09/27/2009 [facility] Triglyceride 399 mg/dL High 40- 200 (Trig/Chol/HDL) [phone] Cholesterol 202 mg/dL High Less Than 200 81 High Density Lipoprotein 31 mg/dL Low 40-60 82 Cholesterol/HDL Ratio 6.52 AVERAGE High 1-4.97 Low Density Lipoprotein 91 mg/dL Less Than 100 83 Laboratory test 09/27/2009 [facility] CPK (Creatine 132 U/L 0-200 finding [phone] Kinase) PSA,Diagnostic 0.0 NG/ML 0-4 84 Lipid Profile 03/28/2009 [facility] Triglyceride 133 mg/dL 40-200 (Trig/Chol/HDL) [phone] Cholesterol 210 mg/dL High Less Than 200 85 High Density Lipoprotein 42 mg/dL 40-60 86 Cholesterol/HDL Ratio 5.00 AVERAGE High 1-4.97 Low Density Lipoprotein 141 mg/dL High Less Than 100 87 Laboratory test finding 03/28/2009 [facility] Alt (SGPT) 31 U/L 17- 62 [phone] CPK (Creatine Kinase) 224 U/L High 0-200 Glucose 94 mg/dL 70-100 88 PSA,Diagnostic 0.00 NG/ML 0-4 89 Laboratory test 01/08/2009 [facility] Stone Analysis (SEE NOTE) 90 finding [phone] Laboratory test 12/11/2008 [facility] PSA,Diagnostic 0.00 NG/ML 0-4 91 finding [phone] Laboratory test 09/17/2008 [facility] Alt (SGPT) 30 U/L 17-63 finding [phone] Lipid Profile 09/17/2008 [facility] Triglyceride 282 mg/dL High 40- 200 (Trig/Chol/HDL) [phone] Cholesterol 212 mg/dL High Less Than 200 92 High Density Lipoprotein 34 mg/dL Low 40-60 93 Cholesterol/HDL Ratio 6.24 AVERAGE High 1-4.97 Low Density Lipoprotein 122 mg/dL High Less Than 100 94 Laboratory test 09/17/2008 [facility] CPK (Creatine 106 U/L 0-200 finding [phone] Kinase) PT/Inr Stat 07/18/2008 [facility] Protime 11.9 10.9-13.3 [phone] Inr 0.97 95 Laboratory test 07/18/2008 [facility] PTT (Aptt) Stat 24.9 20.1- 28.2 96 finding [phone] CBC With Electronic 07/18/2008 [facility] White Blood 4.9 CUMM 4.8- 10.8 Diff Stat [phone] Count Red Cell Count 4.93 CUMM 4.6-6.2 Hemoglobin 15.8 g/dL 14.0-18.0 Hematocrit 43 % 42-52 Mean Corpuscular Volume 88 um3 80-94 Mean Corpuscular Hemoglob 32 pg High 27-31 Mean Corpuscular HGB Cone 37 g/dL High 32-36 Redcell Distribution WDTH 13 % 10.5-15 Platelet Count 236 CUMM 150-450 Mean Platelet Volume 7.0 um3 Low 7.4-10.4 Gran % 52.3 % 38-83 Lymph % 37.4 % 20-45 Mononuclear % 8.1 % 1-9 Eosinophil % 1.8 % 0-6 Basophil % 0.4 % 0-2 Abs Lymphs 1.8 1.0-4.8 Abs Mononuclear 0.4 0-0.8 Absolute Neutrophil Count 2.6 1.5-7.7 Abs Eosinophils 0.1 0-0.6 Abs Basophils 0 0-0.2 97 CMP 07/18/2008 [facility] Sodium 137 mmol/L 135-145 [phone] Potassium 3.7 mmol/L 3.5-5.0 Chloride 106 mmol/L 101-111 Co2 (Carbon Dioxide) 26.0 mmol/L 22-32 Anion Gap 5.0 mmol/L 2-11 98 Glucose 95 mg/dL 70-105 BUN 8 mg/dL 6-24 Creatinine 0.8 mg/dL 0.5-1.4 One Over Creatinine 1.25 BUN/Creatinine Ratio 10.0 8-20 Calcium 9.5 mg/dL 8.1-9.9 99 Total Protein 7.5 GM/DL 6.2-8.1 Albumin 4.3 GM/DL 3.6-5.4 Globulin 3.2 GM/DL 2-4 Albumin/Globulin Ratio 1.3 1-3 Bilirubin Total 1.0 mg/dL 0.4-1.5 Alkaline Phosphatase 63 U/L 39-117 Alt (SGPT) 29 U/L 17-63 Ast (Sgot) 27 U/L 12-42 Lipid Profile 06/08/2008 [facility] Triglyceride 211 mg/dL High 40- 200 100 (Trig/Chol/HDL) [phone] Cholesterol 200 mg/dL Less Than 200 101 High Density Lipoprotein 36 mg/dL Low 40-60 102 Cholesterol/HDL Ratio 5.56 AVERAGE High 1-4.97 Low Density Lipoprotein 122 mg/dL High Less Than 100 103 Laboratory test finding 06/08/2008 [facility] Ast (Sgot) 25 U/L 12- 42 [phone] Alt (SGPT) 31 U/L 17-63 Surgical 05/21/2008 [facility] Surgical Prostate CA 104 Pathology [phone] Pathology ([place] 6) Laboratory test 05/04/2008 [facility] PSA Screening 7.25 NG/ML High 0 -4 105 finding [phone] Laboratory test 04/17/2008 [facility] Glucose 92 mg/dL 70-10 finding [phone] Alt (SGPT) 28 U/L 17-63 Ast (Sgot) 23 U/L 12-42 TSH 0.97 MIU/ML 0.34-5.60 Thyroxine Free 0.83 NG/ML 0.61-1.24 106 T3 Total 1.35 NG/ML 0.5-1.7 Lipid Profile 04/17/2008 [facility] Triglyceride 210 mg/dL High 40- 200 (Trig/Chol/HDL) [phone] Cholesterol 270 mg/dL High Less Than 200 107 High Density Lipoprotein 40 mg/dL 40-60 108 Cholesterol/HDL Ratio 6.75 AVERAGE High 1-4.97 Low Density Lipoprotein 188 mg/dL High Less Than 100 109 CBC With Electronic 04/12/2008 [facility] White Blood 5.3 CUMM 4.8- 10.8 Diff Stat [phone] Count Red Cell Count 5.43 CUMM 4.6-6.2 Hemoglobin 16.9 g/dL 14.0-18.0 Hematocrit 48 % 42-52 110 Mean Corpuscular Volume 87 um3 80-94 Mean Corpuscular Hemoglob 31 pg 27-31 Mean Corpuscular HGB Cone 36 g/dL 32-36 Redcell Distribution WDTH 13 % 10.5-15 Platelet Count 224 CUMM 150-450 Mean Platelet Volume 7.4 um3 7.4-10.4 Gran % 45.5 % 38-83 Lymph % 40.0 % 20-45 Mononuclear % 8.5 % 1-9 Eosinophil % 5.5 % 0-6 Basophil % 0.5 % 0-2 Abs Lymphs 2.1 1.0-4.8 Abs Mononuclear 0.4 0-0.8 Absolute Neutrophil Count 2.4 1.5-7.7 Abs Eosinophils 0.3 0-0.6 Abs Basophils 0 0-0.2 111 Urinalysis W/Microscopic Stat 04/12/2008 [facility] Ua Color YELLOW [phone] Appearance-Urine CLEAR Specific [place]-Ur 1.020 1.010-1.030 Esterase-Urine NEGATIVE Negative Nitrite NEGATIVE Negative [id number] NEGATIVE Negative Protein-Urine 1+ Abnormal Negative PH-Urine 6.0 5-9 Blood-Urine 2+ Abnormal Negative Ketones-Urine NEGATIVE Negative Bilirubin-Ur NEGATIVE Negative Glucose-Urine NEGATIVE Negative WBC-Urine 5-10 Abnormal 0-5 RBC-Urine 0-2 0-2 Mucus Urine MODERATE Epith Cells-Ur MODERATE Bacteria-Urine TRACE CMP 04/12/2008 [facility] Sodium 137 mmol/L 135-145 [phone] Potassium 3.5 mmol/L 3.5-5.0 Chloride 107 mmol/L 101-111 Co2 (Carbon Dioxide) 25.0 mmol/L 22-32 Anion Gap 5.0 mmol/L 2-11 112 Glucose 131 mg/dL High 70-105 BUN 11 mg/dL 6-24 Creatinine 0.8 mg/dL 0.5-1.4 One Over Creatinine 1.25 BUN/Creatinine Ratio 13.8 8-20 Calcium 8.6 mg/dL Low 8.7-10.2 Total Protein 7.1 GM/DL 6.2-8.1 Albumin 4.3 GM/DL 3.6-5.4 Globulin 2.8 GM/DL 2-4 Albumin/Globulin Ratio 1.5 1-3 Bilirubin Total 0.7 mg/dL 0.4-1.5 Alkaline Phosphatase 68 U/L 39-117 Alt (SGPT) 28 U/L 17-63 Ast (Sgot) 27 U/L 12-42 Laboratory test finding 05/17/2006 [facility] TSH 0.33 MIU/ML Low 0.34-5.60 [phone] LDL Direct 179 mg/dL High Less Than 100 113 Alt (SGPT) 31 U/L 17-63 Lipid Profile 05/17/2006 [facility] Cholesterol/HDL 6.92 High 1-4.97 (Trig/Chol/HDL) [phone] Ratio AVERAGE Cholesterol 249 mg/dL High Less Than 200 114 Triglyceride 197 mg/dL 40-200 High Density Lipoprotein 36 mg/dL Low 40-60 115 Low Density Lipoprotein 174 mg/dL High Less Than 100 116 Basic Metabolic Panel 01/22/2006 [facility] Over Creatinine 0.90 [phone] Anion Gap 7.0 mmol/L 2-11 117 BUN 6 mg/dL 6-24 Calcium 9.9 mg/dL 8.7-10.2 Chloride 102 mmol/L 101-111 Co2 (Carbon Dioxide) 28.0 mmol/L 22-32 Glucose 97 mg/dL 70-105 Potassium 4.0 mmol/L 3.5-5.0 Sodium 137 mmol/L 135-145 BUN/Creatinine Ratio 5.5 Low 8-20 Creatinine 1.1 mg/dL 0.5-1.4 Lipid Profile 01/22/2006 [facility] Cholesterol 293 mg/dL High Less 118 (Trig/Chol/HDL) [phone] Than 200 Triglyceride 736 mg/dL High 40-200 High Density Lipoprotein 29 mg/dL Low 40-60 119 Cholesterol/HDL Ratio 10.10 AVERAGE High 1-4.97 1 [id number] 2 SEE RESULT BELOW Name: SARAHY ELENA : [address]: Jason Coleman MD Acct: [id number] Unit: [id number] AGE: 63 Location: [facility] Re01/06/19 SEX: M Status: DEP ER SPEC: [id number] RAJESH: 01/06/[address] [facility] [address]: Jason Coleman MD REQ: [id number] RECD: 01/06/19 STATUS: RES OTHR DR: Bradley Hurtado MD _ SOURCE: [place] SPDESC: ORDERED: MRSA/SA SSTI, Culture Stain COMMENTS: [id number] Procedure Result Reported Site MRSA/S. aureus SSTI PCR PENDING Wound/Misc Gram Stain Preliminary 01/06/192001 ML 1+ Neutrophils 1+ Epithelial Cells 1+ Gram Positive Cocci in Clusters, resembling Staph 1+ Gram Positive Bacilli Wound/Misc Culture PENDING * ML - Main Lab . END OF REPORT DEPARTMENT OF PATHOLOGY, [address] [place] [address] Demetrio Lake M.D. Director [facility] # [id number] 3 SEE RESULT BELOW Name: SARAHY ELENA : [address]: Jason Coleman MD Acct: [id number] Unit: [id number] AGE: 63 Location: [facility] Re01/06/19 SEX: M Status: DEP ER SPEC: [id number] RAJESH: 01/06/19-[address] [facility] [address]: Jason Coleman MD REQ: [id number] RECD: 01/06/19 STATUS: SHARAN STALEY DR: Bradley Hurtado MD _ SOURCE: [facility] [facility]: ORDERED: MRSA/SA SSTI, Culture Stain COMMENTS: [id number] Procedure Result Reported Site MRSA/S. aureus SSTI PCR Final 01/06/19- 2119 ML Organism 1 MRSA NEGATIVE Organism 2 S.AUREUS NEGATIVE Wound/Misc Gram Stain Final 01/07/19- 728 ML 1+ Neutrophils 1+ Epithelial Cells Possible 1+ Gram Positive Cocci Possible 1+ Gram Positive Bacilli Wound/Misc Culture Final 01/08/19- 903 ML No Growth Day 2 * ML - Main Lab . END OF REPORT DEPARTMENT OF PATHOLOGY, [address] [place] [address] Demetrio Lake M.D. Director [facility] # [id number] 4 void, clear, yellow 5 Desirable: <100 Near Optimal: 100-129 Borderline High: 130-159 High: 160-189 Very High: >189 6 Because ethnic data is not always readily available, this report includes an eGFR for both -Americans and non- Americans. The National Kidney Disease Education Program (NKDEP) does not endorse the use of the MDRD equation for patients that are not between the ages of 18 and 70, are , have extremes of body size, muscle mass, or nutritional status, or are non- or non-. According to the National Kidney Foundation, irrespective of diagnosis, the stage of the disease is based on the level of kidney function: Stage Description GFR(mL/min/1.73 m(2)) 1 Kidney damage with normal or decreased GFR 90 2 Kidney damage with mild decrease in GFR 60-89 3 Moderate decrease in GFR 30-59 4 Severe decrease in GFR 15-29 5 Kidney failure <15 (or dialysis) 7 Serum levels of PSA measured using the [employer] DXI Hybritech immunoassay should not be interpreted as absolute evidence of the presence or absence of disease. The PSA value should be used in conjunction with other pertinent clinical diagnostic procedures. A PSA value in the range of 0.1 to 0.6 ng/ml is indeterminate if being used as an indicator of recurrent or residual disease. The values obtained with different assay methods or kits cannot be used interchangeably. 8 Desirable: <150 Borderline High: 150-199 High: 200-499 Very High: >500 9 Desirable: <200 Borderline High: 200-239 High: >239 10 Low: <40 Desirable: 40-60 High: >60 11 Unable to calculate LDL as triglyceride is > 400 12 FASTING 12 HOUR Copy Result to: HUY SHORT ([id number]) 13 Desirable <150 Borderline high 150-199 High 200-499 Very High >500 14 Desirable <200 Borderline high 200-239 High >239 15 Low <40 Desirable: 40-60 High: >60 16 Unable to calculate LDL as triglyceride is > 400 17 Because ethnic data is not always readily available, this report includes an eGFR for both -Americans and non- Americans. The National Kidney Disease Education Program (NKDEP) does not endorse the use of the MDRD equation for patients that are not between the ages of 18 and 70, are , have extremes of body size, muscle mass, or nutritional status, or are non- or non-. According to the [employer], irrespective of diagnosis, the stage of the disease is based on the level of kidney function: Stage Description GFR(mL/min/1.73 m(2)) 1 Kidney damage with normal or decreased GFR 90 2 Kidney damage with mild decrease in GFR 60-89 3 Moderate decrease in GFR 30-59 4 Severe decrease in GFR 15-29 5 Kidney failure <15 (or dialysis) 18 FASTING 12 HOUR Copy Result to: [facility]Y SHORT ([id number]) 19 Serum levels of PSA measured using the [employer] DXI [employer] immunoassay should not be interpreted as absolute evidence of the presence or absence of disease. The PSA value should be used in conjunction with other pertinent clinical diagnostic procedures. A PSA value in the range of 0.1 to 0.6 ng/ml is indeterminate if being used as an indicator of recurrent or residual disease. The values obtained with different assay methods or kits cannot be used interchangeably. 20 [facility] Severe Sepsis and Septic Shock Management Bundle Measure requires all lactic acids initially measuring >2.0 mmol/L be repeated. 21 Because ethnic data is not always readily available, this report includes an eGFR for both -Americans and non- Americans. The National Kidney Disease Education Program (NKDEP) does not endorse the use of the MDRD equation for patients that are not between the ages of 18 and 70, are , have extremes of body size, muscle mass, or nutritional status, or are non- or non-. According to the National Kidney Foundation, irrespective of diagnosis, the stage of the disease is based on the level of kidney function: Stage Description GFR(mL/min/1.73 m(2)) 1 Kidney damage with normal or decreased GFR 90 2 Kidney damage with mild decrease in GFR 60-89 3 Moderate decrease in GFR 30-59 4 Severe decrease in GFR 15-29 5 Kidney failure <15 (or dialysis) 22 Acute inflammation: >10.00 23 Because ethnic data is not always readily available, this report includes an eGFR for both -Americans and non- Americans. The National Kidney Disease Education Program (NKDEP) does not endorse the use of the MDRD equation for patients that are not between the ages of 18 and 70, are , have extremes of body size, muscle mass, or nutritional status, or are non- or non-. According to the National Kidney Foundation, irrespective of diagnosis, the stage of the disease is based on the level of kidney function: Stage Description GFR(mL/min/1.73 m(2)) 1 Kidney damage with normal or decreased GFR 90 2 Kidney damage with mild decrease in GFR 60-89 3 Moderate decrease in GFR 30-59 4 Severe decrease in GFR 15-29 5 Kidney failure <15 (or dialysis) 24 Because ethnic data is not always readily available, this report includes an eGFR for both -Americans and non- Americans. The National Kidney Disease Education Program (NKDEP) does not endorse the use of the MDRD equation for patients that are not between the ages of 18 and 70, are , have extremes of body size, muscle mass, or nutritional status, or are non- or non-. According to the National Kidney Foundation, irrespective of diagnosis, the stage of the disease is based on the level of kidney function: Stage Description GFR(mL/min/1.73 m(2)) 1 Kidney damage with normal or decreased GFR 90 2 Kidney damage with mild decrease in GFR 60-89 3 Moderate decrease in GFR 30-59 4 Severe decrease in GFR 15-29 5 Kidney failure <15 (or dialysis) 25 Serum levels of PSA measured using the [employer] DXI Hybritech immunoassay should not be interpreted as absolute evidence of the presence or absence of disease. The PSA value should be used in conjunction with other pertinent clinical diagnostic procedures. A PSA value in the range of 0.1 to 0.6 ng/ml is indeterminate if being used as an indicator of recurrent or residual disease. The values obtained with different assay methods or kits cannot be used interchangeably. 26 Serum levels of PSA measured using the [employer] DXI Hybritech immunoassay should not be interpreted as absolute evidence of the presence or absence of disease. The PSA value should be used in conjunction with other pertinent clinical diagnostic procedures. A PSA value in the range of 0.1 to 0.6 ng/ml is indeterminate if being used as an indicator of recurrent or residual disease. The values obtained with different assay methods or kits cannot be used interchangeably. 27 Because ethnic data is not always readily available, this report includes an eGFR for both -Americans and non- Americans. The National Kidney Disease Education Program (NKDEP) does not endorse the use of the MDRD equation for patients that are not between the ages of 18 and 70, are , have extremes of body size, muscle mass, or nutritional status, or are non- or non-. According to the National Kidney Foundation, irrespective of diagnosis, the stage of the disease is based on the level of kidney function: Stage Description GFR(mL/min/1.73 m(2)) 1 Kidney damage with normal or decreased GFR 90 2 Kidney damage with mild decrease in GFR 60-89 3 Moderate decrease in GFR 30-59 4 Severe decrease in GFR 15-29 5 Kidney failure <15 (or dialysis) 28 Serum levels of PSA measured using the [employer] DXI Hybritech immunoassay should not be interpreted as absolute evidence of the presence or absence of disease. The PSA value should be used in conjunction with other pertinent clinical diagnostic procedures. A PSA value in the range of 0.1 to 0.6 ng/ml is indeterminate if being used as an indicator of recurrent or residual disease. The values obtained with different assay methods or kits cannot be used interchangeably. 29 RUN DATE: 08/03/13 [facility] LAB LIVE PAGE 1 RUN TIME: [address] [place] [id number] Specimen Inquiry Name: SARAHY ELENA : [address]: Vinny Bueno DO Acct: [id number] Unit: [id number] AGE: 57 Location: [facility] Re07/29/13 SEX: M Status: REG REF SPEC: [id number] RAJESH: 07/29/13-[address] [facility] [address]: Vinny Bueno DO REQ: [id number] RECD: 08/01/13-4276 STATUS: SOUT _ ORDERED: LEVEL IV FINAL DIAGNOSIS Skin, right neck, excision: Benign, predominantly intradermal melanocytic nevus, congenital type, partially neurotized. CLINICAL HISTORY Removed from right neck, large growing irritated skin tag PRE-OPERATIVE DIAGNOSIS Hypertrophic/atrophic conditions of skin unspecified GROSS DESCRIPTION The specimen is received in formalin labeled Sarahy Jeannie, Right Neck Skin Tag, and consists of a aden wrinkled polypoid skin fragment measuring 0.8 x 0.6 x 0.5 cm. The specimen is bisected and submitted entirely, one cassette. Signed (signature on file) Demetrio Lake MD 1539 END OF REPORT * ML=Testing performed at Main Lab DEPARTMENT OF PATHOLOGY, [address] [place] [address] Demetrio Lake M.D. Director [facility] Permit #[id number] 30 Serum levels of PSA measured using the [employer] DXI Hybritech immunoassay should not be interpreted as absolute evidence of the presence or absence of disease. The PSA value should be used in conjunction with other pertinent clinical diagnostic procedures. A PSA value in the range of 0.1 to 0.6 ng/ml is indeterminate if being used as an indicator of recurrent or residual disease. The values obtained with different assay methods or kits cannot be used interchangeably. 31 Because ethnic data is not always readily available, this report includes an eGFR for both -Americans and non- Americans. The National Kidney Disease Education Program (NKDEP) does not endorse the use of the MDRD equation for patients that are not between the ages of 18 and 70, are , have extremes of body size, muscle mass, or nutritional status, or are non- or non-. According to the National Kidney Foundation, irrespective of diagnosis, the stage of the disease is based on the level of kidney function: Stage Description GFR(mL/min/1.73 m(2)) 1 Kidney damage with normal or decreased GFR 90 2 Kidney damage with mild decrease in GFR 60-89 3 Moderate decrease in GFR 30-59 4 Severe decrease in GFR 15-29 5 Kidney failure <15 (or dialysis) 32 Serum levels of PSA measured using the [employer] DXI Hybritech immunoassay should not be interpreted as absolute evidence of the presence or absence of disease. The PSA value should be used in conjunction with other pertinent clinical diagnostic procedures. A PSA value in the range of 0.1 to 0.6 ng/ml is indeterminate if being used as an indicator of recurrent or residual disease. The values obtained with different assay methods or kits cannot be used interchangeably. 33 New Reference Range and Interpretation effective 09/01/2002 TnI (ng/ml) INTERPRETATION Less Than 0.06 ng/mL NOT SUPPORTIVE OF DIAGNOSIS OF MD 0.06 - 0.50 ng/ml INDETERMINATE: SUGGEST SERIAL STUDIES IF CLINICALLY INDICATED. Greater than 0.5 ng/mL CONSISTENT WITH DIAGNOSIS OF MD . 34 Anion gap measurement may be of limited value in the presence of any alkalosis, especially in a combined acid base disorder. . 35 A metabolite of Naproxen, O-desmethylnaproxen, has been shown to interfere with the [employer]rassik-[employer] method for measuring total bilirubin. Samples from patients who have taken Naproxen have shown spurious elevation in total bilirubin levels. 36 Because ethnic data is not always readily available, this report includes an eGFR for both -Americans and non- Americans. The National Kidney Disease Education Program (NKDEP) does not endorse the use of the MDRD equation for patients that are not between the ages of 18 and 70, are , have extremes of body size, muscle mass, or nutritional status, or are non- or non-. According to the National Kidney Foundation, irrespective of diagnosis, the stage of the disease is based on the level of kidney function: Stage Description GFR(mL/min/1.73 m(2)) 1 Kidney damage with normal or decreased GFR 90 2 Kidney damage with mild decrease in GFR 60-89 3 Moderate decrease in GFR 30-59 4 Severe decrease in GFR 15-29 5 Kidney failure <15 (or dialysis) 37 New Reference Range and Interpretation effective 09/01/2002 TnI (ng/ml) INTERPRETATION Less Than 0.06 ng/mL NOT SUPPORTIVE OF DIAGNOSIS OF MD 0.06 - 0.50 ng/ml INDETERMINATE: SUGGEST SERIAL STUDIES IF CLINICALLY INDICATED. Greater than 0.5 ng/mL CONSISTENT WITH DIAGNOSIS OF MD . 38 Anion gap measurement may be of limited value in the presence of any alkalosis, especially in a combined acid base disorder. . 39 Because ethnic data is not always readily available, this report includes an eGFR for both -Americans and non- Americans. The National Kidney Disease Education Program (NKDEP) does not endorse the use of the MDRD equation for patients that are not between the ages of 18 and 70, are , have extremes of body size, muscle mass, or nutritional status, or are non- or non-. According to the National Kidney Foundation, irrespective of diagnosis, the stage of the disease is based on the level of kidney function: Stage Description GFR(mL/min/1.73 m(2)) 1 Kidney damage with normal or decreased GFR 90 2 Kidney damage with mild decrease in GFR 60-89 3 Moderate decrease in GFR 30-59 4 Severe decrease in GFR 15-29 5 Kidney failure <15 (or dialysis) 40 CHOLESTEROL INTERPRETATION: Desirable: Less than 200 MG/DL Borderline-High Risk: 200-239 MG/DL High-Risk: 240 MG/DL and over 41 HDL INTERPRETATION: Undesirable: High Risk: Less than 40 MG/DL Desirable: Low Risk: Greater than 60 MG/DL 42 UNABLE TO CALCULATE LDL TRIGLYCERIDE IS > 400 43 ---- RUN DATE: 06/13/12 [facility] NMI LIVE PAGE 1 RUN TIME: 1547 Specimen Inquiry RUN USER: INTERFACE -- Name: SARAHY ELENA Status: REG REF Re06/09/12 Age/Sex: 56/M Unit#: [id number] Location: [address] [place] [address]. : [birth year] -- Specimen: [id number] SOUT Spec Date:06/09/12- [facility] Dr: Jake stewart MD Spec Type: SURGICAL P Received:06/10/12 Copies to: Bradley Hurtado MD SPECIMEN BIOPSY COLON AT 30 CM. HISTORY POST-OP DIAGNOSIS: Colonoscopy into cecum, prep good - small sigmoid colo n polyp removed CLINICAL INFORMATION: Screening colonoscopy GROSS DESCRIPTION The specimen is received in formalin labelled Sarahy Elena, Biopsy Colon at 30 cm., and consists of one fragment of brown tissue measuring 0.3 x 0.2 x 0.2 cm. Submitted entirely, one cassette. DIAGNOSIS Colon, 30 cm., biopsy: A. Tubular adenoma. B. No high grade dysplasia or malignancy. Signed Electronically by: DEMETRIO LAKE MD 06/13/12 1544 -- -- DEPARTMENT OF PATHOLOGY, [address] [place] [address] [facility] Permit #[id number] Demetrio Lake M.D. Director Sadie Hull M.D. Gum Sprayer Dir emery -- 44 RUN DATE: 04/27/12 [facility] NMI LIVE PAGE 1 RUN TIME: 1023 Specimen Inquiry RUN USER: INTERFACE Name: SARAHY ELENA Status: DIS Jose Re04/22/12 Age/Sex: 56/M Unit#: [id number] Location: : 59 SPEC #: [id number] RAJESH: 04/22/12-1012 STATUS: COMP REQ #: [id number] RECD: 04/22/12-[address]: Xavi Graves DO SOURCE: BLOOD ENTR: 04/22/[address]: Bradley Hurtado MD SPDC: BLOOD,VENO ORDERED: BLOOD CULTURE ACT WKST: 04/23/12 #1 Procedure Result Verified Site > AEROBIC CULTURE BOTTLE Final 04/27/12- 1023 ML NO GROWTH AFTER 5 DAYS > ANAEROBIC CULTURE BOTTLE Final 04/27/12- 1023 ML NO GROWTH AFTER 5 DAYS ML - [facility] Permit #[id number] [address] [place] [address] DEPARTMENT OF PATHOLOGY, [address] [place] [address] [facility] Permit #[id number] Demetrio Lake M.D. Director Sadie Hull M.D. Dredge Worker 45 H H Check Failed 46 Recommended INR for Patients on Oral Anticoagulants Prophylaxis 2.0 - 3.0 Treatment of thrombosis 2.0 - 3.0 Prevention of embolism 2.0 - 3.0 Prevention of embolism from prosthetic heart valves 2.5 - 3.5 47 DIAGNOSIS,TREATMENT,AND THERAPY MUST BE BASED ON THE INR VALUE ALONE. 48 Please note: The following may produce a false positive D Dimer test: - Rheumatoid factor greater than 1400 IU/ml - Plasma hemoglobin greater than 0.5 gm/dl - Bilirubin greater than 18 mg/dl - Triglycerides greater than 1327 mg/dl - FDP greater than 10 ug/ml . 49 Anion gap measurement may be of limited value in the presence of any alkalosis, especially in a combined acid base disorder. . 50 A metabolite of Naproxen, O-desmethylnaproxen, has been shown to interfere with the Jend[employer]ik-Debbie method for measuring total bilirubin. Samples from patients who have taken Naproxen have shown spurious elevation in total bilirubin levels. 51 Because ethnic data is not always readily available, this report includes an eGFR for both -Americans and non- Americans. The National Kidney Disease Education Program (NKDEP) does not endorse the use of the MDRD equation for patients that are not between the ages of 18 and 70, are , have extremes of body size, muscle mass, or nutritional status, or are non- or non-. According to the National Kidney Foundation, irrespective of diagnosis, the stage of the disease is based on the level of kidney function: Stage Description GFR(mL/min/1.73 m(2)) 1 Kidney damage with normal or decreased GFR 90 2 Kidney damage with mild decrease in GFR 60-89 3 Moderate decrease in GFR 30-59 4 Severe decrease in GFR 15-29 5 Kidney failure <15 (or dialysis) 52 New Reference Range and Interpretation effective 09/01/2002 TnI (ng/ml) INTERPRETATION Less Than 0.06 ng/mL NOT SUPPORTIVE OF DIAGNOSIS OF MD 0.06 - 0.50 ng/ml INDETERMINATE: SUGGEST SERIAL STUDIES IF CLINICALLY INDICATED. Greater than 0.5 ng/mL CONSISTENT WITH DIAGNOSIS OF MD . 53 PLEASE NOTE NEW REFERENCE RANGE. 54 H H Check Failed 55 Recommended INR for Patients on Oral Anticoagulants Prophylaxis 2.0 - 3.0 Treatment of thrombosis 2.0 - 3.0 Prevention of embolism 2.0 - 3.0 Prevention of embolism from prosthetic heart valves 2.5 - 3.5 56 DIAGNOSIS,TREATMENT,AND THERAPY MUST BE BASED ON THE INR VALUE ALONE. 57 Anion gap measurement may be of limited value in the presence of any alkalosis, especially in a combined acid base disorder. . 58 A metabolite of Naproxen, O-desmethylnaproxen, has been shown to interfere with the [employer]rassik-[employer] method for measuring total bilirubin. Samples from patients who have taken Naproxen have shown spurious elevation in total bilirubin levels. 59 Because ethnic data is not always readily available, this report includes an eGFR for both -Americans and non- Americans. The National Kidney Disease Education Program (NKDEP) does not endorse the use of the MDRD equation for patients that are not between the ages of 18 and 70, are , have extremes of body size, muscle mass, or nutritional status, or are non- or non-. According to the National Kidney Foundation, irrespective of diagnosis, the stage of the disease is based on the level of kidney function: Stage Description GFR(mL/min/1.73 m(2)) 1 Kidney damage with normal or decreased GFR 90 2 Kidney damage with mild decrease in GFR 60-89 3 Moderate decrease in GFR 30-59 4 Severe decrease in GFR 15-29 5 Kidney failure <15 (or dialysis) 60 * SERUM LEVELS OF PSA MEASURED USING THE [employer] ACCESS HYBRITECH IMMUNOASSAY SHOULD NOT BE INTERPRETED ABSOLUTE EVIDENCE OF THE PRESENCE OR ABSENCE OF DISEASE. THE PSA VALUE SHOULD BE USED IN CONJUNCTION WITH OTHER PERTINENT CLINICAL DIAGNOSTIC PROCEDURES. A PSA value in the range of 0.1 to 0.6 ng/ml is indeterminate if being used as an indicator of recurrent or residual disease. . The values obtained with different assay methods of kits cannot be used interchangeably. 61 CHOLESTEROL INTERPRETATION: Desirable: Less than 200 MG/DL Borderline-High Risk: 200-239 MG/DL High-Risk: 240 MG/DL and over 62 HDL INTERPRETATION: Undesirable: High Risk: Less than 40 MG/DL Desirable: Low Risk: Greater than 60 MG/DL 63 UNABLE TO CALCULATE LDL TRIGLYCERIDE IS > 400 64 Anion gap measurement may be of limited value in the presence of any alkalosis, especially in a combined acid base disorder. . 65 Because ethnic data is not always readily available, this report includes an eGFR for both -Americans and non- Americans. The National Kidney Disease Education Program (NKDEP) does not endorse the use of the MDRD equation for patients that are not between the ages of 18 and 70, are , have extremes of body size, muscle mass, or nutritional status, or are non- or non-. According to the National Kidney Foundation, irrespective of diagnosis, the stage of the disease is based on the level of kidney function: Stage Description GFR(mL/min/1.73 m(2)) 1 Kidney damage with normal or decreased GFR 90 2 Kidney damage with mild decrease in GFR 60-89 3 Moderate decrease in GFR 30-59 4 Severe decrease in GFR 15-29 5 Kidney failure <15 (or dialysis) 66 * SERUM LEVELS OF PSA MEASURED USING THE [employer] ACCESS HYBRITECH IMMUNOASSAY SHOULD NOT BE INTERPRETED ABSOLUTE EVIDENCE OF THE PRESENCE OR ABSENCE OF DISEASE. THE PSA VALUE SHOULD BE USED IN CONJUNCTION WITH OTHER PERTINENT CLINICAL DIAGNOSTIC PROCEDURES. A PSA value in the range of 0.1 to 0.6 ng/ml is indeterminate if being used as an indicator of recurrent or residual disease. . 67 CHOLESTEROL INTERPRETATION: Desirable: Less than 200 MG/DL Borderline-High Risk: 200-239 MG/DL High-Risk: 240 MG/DL and over 68 HDL INTERPRETATION: Undesirable: High Risk: Less than 40 MG/DL Desirable: Low Risk: Greater than 60 MG/DL 69 LDL INTERPRETATION: Low Risk Optimal Level: LDL Less than 100 MG/DL Near or Above Optimal: LDL 100-129 MG/DL Borderline High Risk: LDL 130-159 MG/DL High Risk: LDL 160-189 MG/DL Very High Risk: LDL Greater than 189 MG/DL 70 * SERUM LEVELS OF PSA MEASURED USING THE [employer] ACCESS HYBRITECH IMMUNOASSAY SHOULD NOT BE INTERPRETED ABSOLUTE EVIDENCE OF THE PRESENCE OR ABSENCE OF DISEASE. THE PSA VALUE SHOULD BE USED IN CONJUNCTION WITH OTHER PERTINENT CLINICAL DIAGNOSTIC PROCEDURES. A PSA value in the range of 0.1 to 0.6 ng/ml is indeterminate if being used as an indicator of recurrent or residual disease. . 71 H H Check Failed 72 Anion gap measurement may be of limited value in the presence of any alkalosis, especially in a combined acid base disorder. . 73 Note change in reference range as of 07/19/08. The change was based on recommendations from the [place] [employer]. 74 Please note change in reference range effective 08 . 75 Because ethnic data is not always readily available, this report includes an eGFR for both -Americans and non- Americans. The National Kidney Disease Education Program (NKDEP) does not endorse the use of the MDRD equation for patients that are not between the ages of 18 and 70, are , have extremes of body size, muscle mass, or nutritional status, or are non- or non-. According to the National Kidney Foundation, irrespective of diagnosis, the stage of the disease is based on the level of kidney function: Stage Description GFR(mL/min/1.73 m(2)) 1 Kidney damage with normal or decreased GFR 90 2 Kidney damage with mild decrease in GFR 60-89 3 Moderate decrease in GFR 30-59 4 Severe decrease in GFR 15-29 5 Kidney failure <15 (or dialysis) 76 Interpretation: 10-24 (mild to moderate deficiency) -- REFERENCE VALUE -- 25-HYDROXY D TOTAL (D2+D3) Optimum levels in the normal population are 25-80 Test Performed by: [facility] Dpt of Lab Med and Pathology [address] [place] [address] Computing Services Director: Jonel Del Valle III, M.D. 77 CHOLESTEROL INTERPRETATION: Desirable: Less than 200 MG/DL Borderline-High Risk: 200-239 MG/DL High-Risk: 240 MG/DL and over 78 HDL INTERPRETATION: Undesirable: High Risk: Less than 40 MG/DL Desirable: Low Risk: Greater than 60 MG/DL 79 LDL INTERPRETATION: Low Risk Optimal Level: LDL Less than 100 MG/DL Near or Above Optimal: LDL 100-129 MG/DL Borderline High Risk: LDL 130-159 MG/DL High Risk: LDL 160-189 MG/DL Very High Risk: LDL Greater than 189 MG/DL 80 Note change in reference range as of 07/19/08. The change was based on recommendations from the [place] [employer]. 81 CHOLESTEROL INTERPRETATION: Desirable: Less than 200 MG/DL Borderline-High Risk: 200-239 MG/DL High-Risk: 240 MG/DL and over 82 HDL INTERPRETATION: Undesirable: High Risk: Less than 40 MG/DL Desirable: Low Risk: Greater than 60 MG/DL 83 LDL INTERPRETATION: Low Risk Optimal Level: LDL Less than 100 MG/DL Near or Above Optimal: LDL 100-129 MG/DL Borderline High Risk: LDL 130-159 MG/DL High Risk: LDL 160-189 MG/DL Very High Risk: LDL Greater than 189 MG/DL 84 * SERUM LEVELS OF PSA MEASURED USING THE [facility] ACCESS HYBRITECH IMMUNOASSAY SHOULD NOT BE INTERPRETED ABSOLUTE EVIDENCE OF THE PRESENCE OR ABSENCE OF DISEASE. THE PSA VALUE SHOULD BE USED IN CONJUNCTION WITH OTHER PERTINENT CLINICAL DIAGNOSTIC PROCEDURES. A PSA value in the range of 0.1 to 0.6 ng/ml is indeterminate if being used as an indicator of recurrent or residual disease. . 85 CHOLESTEROL INTERPRETATION: Desirable: Less than 200 MG/DL Borderline-High Risk: 200-239 MG/DL High-Risk: 240 MG/DL and over 86 HDL INTERPRETATION: Undesirable: High Risk: Less than 40 MG/DL Desirable: Low Risk: Greater than 60 MG/DL 87 LDL INTERPRETATION: Low Risk Optimal Level: LDL Less than 100 MG/DL Near or Above Optimal: LDL 100-129 MG/DL Borderline High Risk: LDL 130-159 MG/DL High Risk: LDL 160-189 MG/DL Very High Risk: LDL Greater than 189 MG/DL 88 Note change in reference range as of 07/19/08. The change was based on recommendations from the [place] [employer]. 89 CONSISTENT WITH PREVIOUS RESULTS * SERUM LEVELS OF PSA MEASURED USING THE [facility] ACCESS HYBRITECH IMMUNOASSAY SHOULD NOT BE INTERPRETED ABSOLUTE EVIDENCE OF THE PRESENCE OR ABSENCE OF DISEASE. THE PSA VALUE SHOULD BE USED IN CONJUNCTION WITH OTHER PERTINENT CLINICAL DIAGNOSTIC PROCEDURES. A PSA value in the range of 0.1 to 0.6 ng/ml is indeterminate if being used as an indicator of recurrent or residual disease. . 90 TEST RESULT RETURNED FROM REFERENCE LABORATORY AND HARDCOPY SENT TO PHYSICIAN(S) OFFICE. 91 CONSISTENT WITH PREVIOUS RESULTS * SERUM LEVELS OF PSA MEASURED USING THE [facility] ACCESS HYBRITECH IMMUNOASSAY SHOULD NOT BE INTERPRETED ABSOLUTE EVIDENCE OF THE PRESENCE OR ABSENCE OF DISEASE. THE PSA VALUE SHOULD BE USED IN CONJUNCTION WITH OTHER PERTINENT CLINICAL DIAGNOSTIC PROCEDURES. A PSA value in the range of 0.1 to 0.6 ng/ml is indeterminate if being used as an indicator of recurrent or residual disease. . 92 CHOLESTEROL INTERPRETATION: Desirable: Less than 200 MG/DL Borderline-High Risk: 200-239 MG/DL High-Risk: 240 MG/DL and over 93 HDL INTERPRETATION: Undesirable: High Risk: Less than 40 MG/DL Desirable: Low Risk: Greater than 60 MG/DL 94 LDL INTERPRETATION: Low Risk Optimal Level: LDL Less than 100 MG/DL Near or Above Optimal: LDL 100-129 MG/DL Borderline High Risk: LDL 130-159 MG/DL High Risk: LDL 160-189 MG/DL Very High Risk: LDL Greater than 189 MG/DL 95 KELLY VALUE=2.01 ( OF 11/04/07 Recommended INR for Patients on Oral Anticoagulants Prophylaxis 2.0 - 3.0 Treatment of thrombosis 2.0 - 3.0 Prevention of embolism 2.0 - 3.0 Prevention of embolism from prosthetic heart valves 2.5 - 3.5 96 PLEASE NOTE NEW REFERENCE RANGE EFFECTIVE 08. 97 H H Check Failed 98 Anion gap measurement may be of limited value in the presence of any alkalosis, especially in a combined acid base disorder. . 99 Please note change in reference range effective 08 . 100 FASTING 101 CHOLESTEROL INTERPRETATION: Desirable: Less than 200 MG/DL Borderline-High Risk: 200-239 MG/DL High-Risk: 240 MG/DL and over 102 HDL INTERPRETATION: Undesirable: High Risk: Less than 40 MG/DL Desirable: Low Risk: Greater than 60 MG/DL 103 LDL INTERPRETATION: Low Risk Optimal Level: LDL Less than 100 MG/DL Near or Above Optimal: LDL 100-129 MG/DL Borderline High Risk: LDL 130-159 MG/DL High Risk: LDL 160-189 MG/DL Very High Risk: LDL Greater than 189 MG/DL 104 ----- RUN DATE: 05/22/08 [facility] NMI LIVE PAGE 1 RUN TIME: 1521 Specimen Inquiry RUN USER: INTERFACE -- Name: SARAHY ELENA#: [id number] Status: REG REF Re05/21/08 Age/Sex: 52/M Unit#: [id number] Location: [facility] : 59 -- Specimen: [id number] Spec Date: 05/21/08 [facility] Dr: Huy Lunsford i, MD Spec Type: SURGICAL P Received: 05/21/08-6288 Copies to: Bradley Hurtado MD SPECIMEN 1) LEFT LOBE PROSTATE BIOPSY APEX (APEX 3) 2) LEFT LOBE PROSTATE BIOPSY BASE (BASE 3) 3) RIGHT LOBE PROSTATE BIOPSY APEX (APEX 3) 4) RIGHT LOBE PROSTATE BIOPSY BASE (BASE 3) HISTORY PRE-OP DIAGNOSIS: Elevated psa, grade III right lobe. POST-OP DIAGNOSIS: Psa of 7.25. GROSS DESCRIPTION 1) The specimen is received in formalin labelled Sarahy Jeannie, Left Prostate Lobe [place], and consists of three, aden, soft tissue cores measuring 1.4 cm., 1.4 cm., and 1.7 x 0.1 cm. Submitted entirely, one cassette. 2) The specimen is received in formalin labelled Sarahy Jeannie, Left Prostate Lobe Base, and consists of three, aden, soft tissue cores measuring 1.2 cm., 1.6 cm., and 1.9 x 0.1 cm. Submitted entirely, one cassette. 3) The specimen is received in formalin labelled Sarahy Jeannie, Right Prostate Lobe [place], and consists of three, aden, soft tissue cores measuring 1.9 cm., 1.7 cm., and 1.7 x 0.1 cm. Submitted entirely, one cassette. 4) The specimen is received in formalin labelled Sarahy Jeannie, Right Prostate Lobe Base, and consists of three, aden, soft tissue cores measuring 1.4 cm., 1.7 cm., and 1.5 x 0.1 cm. Submitted entirely, one cassette. DIAGNOSIS 1) Prostate, left apex, core biopsies - A) Benign prostate tissue. B) No evidence of neoplasia. -- DEPARTMENT OF PATHOLOGY, [address] [place] [address] [facility] Permit #[id number] Demetrio Lake M.D. Director of Laboratories -- -- RUN DATE: 05/22/08 [facility] NMI LIVE PAGE 2 RUN TIME: 1521 Specimen Inquiry RUN USER: INTERFACE -- Name: SARAHY ELENA#: [id number] Status: REG REF Re05/21/08 Age/Sex: 52/M Unit#: [id number] Location: PSYCHIATRIC.O.B. : 59 -- -- CONTINUED -- DIAGNOSIS (Continued) 2) Prostate, left base, core biopsies - A) Benign prostate tissue with partial atrophy. B) No evidence of neoplasia. 3) Prostate, right apex, core biopsies - A. Prostatic adenocarcinoma, small acinar type: 1. Oni score: 3 + 3=6. 2. Extent of Local Invasion: Tumor involves four foci on three of three cores, measures 2.5 cm. in maximal aggregate dimension, and occupies 70% of total core length. 3. Perineural Invasion: Not seen. 4. Angiolymphatic Invasion: Not seen. B. Other findings: None. 4) Prostate, right base, core biopsies - A. Prostatic adenocarcinoma, small acinar type: 1. Oni score: 3 + 3=6. 2. Extent of Local Invasion: Tumor involves one focus on one of three cores, measures 0.1 cm. in maximal span, and occupies 5% of total core length. 3. Perineural Invasion: Not seen. 4. Angiolymphatic Invasion: Not seen. B. Other findings: None. Signed Electronically by: DEMETRIO LAKE MD 05/22/08 1521 -- -- DEPARTMENT OF PATHOLOGY, [address] [place] [address] [facility] Permit #[id number] Demetrio Lake M.D. Director of Laboratories -- 105 * SERUM LEVELS OF PSA MEASURED USING THE ZONIA [place] ACCESS HYBRITECH IMMUNOASSAY SHOULD NOT BE INTERPRETED ABSOLUTE EVIDENCE OF THE PRESENCE OR ABSENCE OF DISEASE. THE PSA VALUE SHOULD BE USED IN CONJUNCTION WITH OTHER PERTINENT CLINICAL DIAGNOSTIC PROCEDURES. 106 PLEASE NOTE NEW REFERENCE RANGES. 107 CHOLESTEROL INTERPRETATION: Desirable: Less than 200 MG/DL Borderline-High Risk: 200-239 MG/DL High-Risk: 240 MG/DL and over 108 HDL INTERPRETATION: Undesirable: High Risk: Less than 40 MG/DL Desirable: Low Risk: Greater than 60 MG/DL 109 LDL INTERPRETATION: Low Risk Optimal Level: LDL Less than 100 MG/DL Near or Above Optimal: LDL 100-129 MG/DL Borderline High Risk: LDL 130-159 MG/DL High Risk: LDL 160-189 MG/DL Very High Risk: LDL Greater than 189 MG/DL 110 SPUN CRIT 111 H H Check Failed 112 Anion gap measurement may be of limited value in the presence of any alkalosis, especially in a combined acid base disorder. . 113 Classification: High . 114 Classification: High . 115 Classification: Low . 116 CALCULATED LDL APPROXIMATES THE VALUE OF A DIRECT LDL MEASUREMENT. Classification: High . 117 Anion gap measurement may be of limited value in the presence of any alkalosis, especially in a combined acid base disorder. . 118 Classification: High . 119 Classification: Low . Procedures Date Code Description Status 07/29/2013 88421 Remove Skin Tags Up To 15 Completed 05/29/2012 75134775 Colonoscopy Completed 04/18/2012 32836 Electrocardiogram Complete Completed 04/18/2012 23165 X-Ray Chest Two Views Completed 10/22/2010 15415 Pure Tone, Threshold Completed Encounters Type Date Location Provider Dx Diagnosis Office Visit 01/31/2019 Main Office Naheed Estrada PA L03.115 Cellulitis of right 4:30p lower limb G56.03 Carpal tunnel syndrome, bilateral upper limbs Office Visit 01/11/2019 11:00a Main Office Naheed Estrada, L03.115 Cellulitis of PA right lower limb Office Visit 09/13/2018 8:30a Main Office Bradley Hurtado, I25.10 Braeden cruz M.D. 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, unspecified R06.2 Wheezing G47.33 Obstructive sleep apnea (adult) (pediatric) G56.03 Carpal tunnel syndrome, bilateral upper limbs R73.01 Impaired fasting glucose Z86.010 Personal history of colonic polyps E66.9 Obesity, unspecified Z23 Encounter for immunization Office Visit 06/02/2016 8:45a Main Office Bradley Hurtado, I25.10 Athscl heart MStacy 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 414.00 Coronary Atherosclerosis Unspec Type Vessel [place]/Graft 272.8 Lipoid Metabolism Disorders Other 327.23 Obstructive Sleep Apnea Adult & Pediatric V75.9 Screening Examination Infectious Disease Unspec V10.46 History Personal Malignant Neoplasm Prostate V65.49 Counseling Other Spec V04.81 Need For Prophylactic Vaccination & Inoculation/Influenza V07.2 Prophylactic Immunotherapy Office Visit 07/29/2013 9:30a Main Office Vinny Bueno, 701.9 Hypertrophic & D.O. Atrophic Conditions Of Skin Unspec 686.8 Local Infection Skin & Subcutaneous Tissue Other Spec 729.5 Pain In Limb Office Visit 03/15/2013 9:15a Main Office Bradley Hurtado, 401.1 Hypertension Benign M.D. 414.00 Coronary Atherosclerosis Unspec Type Vessel [place]/Graft 729.5 Pain In Limb 782.0 Skin Sensation Disturbance 272.8 Lipoid Metabolism Disorders Other 327.23 Obstructive Sleep Apnea Adult & Pediatric 729.1 Myalgia & Myositis Unspec Office Visit 12/27/2012 9:30a Main Office Bradley Hurtado, 401.1 Hypertension Benign M.D. 414.00 Coronary Atherosclerosis Unspec Type Vessel [place]/Graft 729.5 Pain In Limb 782.0 Skin Sensation Disturbance 272.8 Lipoid Metabolism Disorders Other 327.23 Obstructive Sleep Apnea Adult & Pediatric Office Visit 09/26/2012 9:30a Main Office Bradley Hurtado, 401.1 Hypertension Benign M.D. 272.8 Lipoid Metabolism Disorders Other 414.00 Coronary Atherosclerosis Unspec Type Vessel [place]/Graft 729.1 Myalgia & Myositis Unspec V15.06 Allegy To Insects And Arachnids V65.49 Counseling Other Spec Office Visit 07/26/2012 4:15p Main Office Bradley Hurtado, 401.1 Hypertension Benign M.D. 272.8 Lipoid Metabolism Disorders Other 414.00 Coronary Atherosclerosis Unspec Type Vessel [place]/Graft 729.1 Myalgia & Myositis Unspec Office Visit 05/21/2012 9:15a Main Office Bradley Hurtado, 401.1 Hypertension Benign M.D. 272.8 Lipoid Metabolism Disorders Other 414.00 Coronary Atherosclerosis Unspec Type Vessel [place]/Graft Office Visit 04/18/2012 9:45a Main Office Bradley Hurtado, 401.1 Hypertension Benign M.D. 780.79 Malaise And Fatigue Other V10.46 History Personal Malignant Neoplasm Prostate V76.51 Special Screening For Malignant Neoplasms Colon V70.3 Examination Other Medical For Administrative Purpose 786.09 Dyspnea & Respiratory Abnormalities Other 724.2 Lumbago 289.0 Polycythemia Secondary Office Visit 04/17/2011 9:45a Main Office Bradley Hurtado, 272.8 Lipoid Metabolism M.D. Disorders Other 780.79 Malaise And Fatigue Other 796.2 Blood Pressure Reading Elevated W/O Hypertension V76.51 Special Screening For Malignant Neoplasms Colon Office Visit 10/22/2010 3:30p Main Office Brittany Hurtado0.3 Examination Other Lorene Huerta Medical For Administrative Purpose 272.8 Lipoid Metabolism Disorders Other V10.46 History Personal Malignant Neoplasm Prostate 780.79 Malaise And Fatigue Other 233.4 Carcinoma Prostate V06.1 Icpzkjjlaa-Bsqlhhv-Uumcvvsh Combined (DTaP) v06.1 Vbbmhnjsar-Phktsdw-Dwikfycz Combined (DTaP) V72.19 Other Examination Of Ears And Hearing v07.2 Prophylactic Immunotherapy 796.2 Blood Pressure Reading Elevated W/O Hypertension Office Visit 04/04/2010 8:55a Main Office Bradley Hurtado, 272.8 Lipoid Metabolism M.D. Disorders Other V10.46 History Personal Malignant Neoplasm Prostate V76.51 Special Screening For Malignant Neoplasms Colon 780.79 Malaise And Fatigue Other Office Visit 10/04/2009 8:55a Main Office Bradley Hurtado 272.8 Lipoid Metabolism M.D. Disorders Other V10.46 History Personal Malignant Neoplasm Prostate V76.51 Special Screening For Malignant Neoplasms Colon Office Visit 04/01/2009 8:55a Main Office Bradley Hurtado 272.8 Lipoid Metabolism M.D. Disorders Other V10.46 History Personal Malignant Neoplasm Prostate V76.51 Special Screening For Malignant Neoplasms Colon Office Visit 09/25/2008 4:00p Main Office Bradley Hurtado 272.8 Lipoid Metabolism M.D. Disorders Other V76.51 Special Screening For Malignant Neoplasms Colon 233.4 Carcinoma Prostate 596.8 Bladder Disorders Other Spec Office Visit 06/13/2008 2:00p Main Office Bradley Hurtado, 272.8 Lipoid Metabolism M.D. Disorders Other 719.41 Pain Joint Shoulder Region 233.4 Carcinoma Prostate Office Visit 04/24/2008 11:00a Main Office Bradley Hurtado, 272.8 Lipoid Metabolism M.D. Disorders Other Office Visit 02/29/2008 2:30p Main Office Bradley Hurtado, 465.9 URI Upper M.D. 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 Ankle Unspec Site 272.8 Lipoid Metabolism Disorders Other 272.8 Lipoid Metabolism Disorders Other 719.47 Pain Joint Ankle & Foot Office Visit 05/10/2006 8:55a Main Office Bradley Hurtado 272.8 Lipoid Metabolism M.D. Disorders Other 305.1 Tobacco Use Disorder 845.00 Sprains & Strains Ankle Unspec Site Office Visit 04/02/2006 1:30p Main Office Bradley Hurtado, 272.8 Lipoid Metabolism M.D. Disorders Other 845.00 Sprains & Strains Ankle Unspec Site 305.1 Tobacco Use Disorder Office Visit 03/09/2006 Main Office Nieves Manuel 272.4 Hyperlipidemia Other 3:30p Unspec Office Visit 03/02/2006 Main Office Bradley Hurtado, 845.00 Sprains & Strains 1:45p M.D. Ankle Unspec Site 845.00 Sprains & Strains Ankle Unspec Site Office Visit 02/05/2006 11:15a Main Office Bradley Hurtado, 272.8 Lipoid Metabolism M.D. Disorders Other 272.8 Lipoid Metabolism Disorders Other 305.1 Tobacco Use Disorder 305.1 Tobacco Use Disorder 845.00 Sprains & Strains Ankle Unspec Site 845.00 Sprains & Strains Ankle Unspec Site Office Visit 02/05/2006 11:00a Main Office Bradley Hurtado 272.8 Lipoid Metabolism M.D. Disorders Other 272.8 Lipoid Metabolism Disorders Other 305.1 Tobacco Use Disorder 305.1 Tobacco Use Disorder 845.00 Sprains & Strains Ankle Unspec Site 845.00 Sprains & Strains Ankle Unspec Site Office Visit 01/22/2006 9:30a Main Office erik 719.47 Pain Joint Ankle & Foot Office Visit 07/29/2005 2:45p Main Office Lacie Hurtado5.14 Osteoarthrosis Lorene Huerta Localized Prim Hand 719.44 Pain Joint Hand V77.91 Screening For Lipoid Disorders 796.2 Blood Pressure Reading Elevated W/O Hypertension 719.44 Pain Joint Hand 715.14 Osteoarthrosis Localized Prim Hand Office Visit 06/26/2005 2:00p Main Office erik 719.44 Pain Joint Hand Office Visit 06/23/2005 4:15p Main Office [facility] 715.14 Osteoarthrosis Lorene Huerta Localized Prim Hand 719.44 Pain Joint Hand 719.44 Pain Joint Hand 719.44 Pain Joint Hand 796.2 Blood Pressure Reading Elevated W/O Hypertension 719.44 Pain Joint Hand 719.44 Pain Joint Hand 715.14 Osteoarthrosis Localized Prim Hand 715.14 Osteoarthrosis Localized Prim Hand 715.14 Osteoarthrosis Localized Prim Hand 715.14 Osteoarthrosis Localized Prim Hand 796.2 Blood Pressure Reading Elevated W/O Hypertension 796.2 Blood Pressure Reading Elevated W/O Hypertension 796.2 Blood Pressure Reading Elevated W/O Hypertension 796.2 Blood Pressure Reading Elevated W/O Hypertension Office Visit 06/23/2005 4:15p Main Office [facility] 715.14 Osteoarthrosis Lorene Huerta Localized Prim Hand 719.44 Pain Joint Hand 719.44 Pain Joint Hand 719.44 Pain Joint Hand 796.2 Blood Pressure Reading Elevated W/O Hypertension 719.44 Pain Joint Hand 719.44 Pain Joint Hand 715.14 Osteoarthrosis Localized Prim Hand 715.14 Osteoarthrosis Localized Prim Hand 715.14 Osteoarthrosis Localized Prim Hand 715.14 Osteoarthrosis Localized Prim Hand 796.2 Blood Pressure Reading Elevated W/O Hypertension 796.2 Blood Pressure Reading Elevated W/O Hypertension 796.2 Blood Pressure Reading Elevated W/O Hypertension 796.2 Blood Pressure Reading Elevated W/O Hypertension Office Visit 06/19/2005 9:30a Main Office [facility] 719.44 Pain Joint Hand 719.44 Pain Joint Hand 401.1 Hypertension Benign Plan of Treatment Future Appointment(s):03/22/2019 9:15 am - Bradley Hurtado M.D. at Main [facility]/31/2019 - Naheed Estrada, PAL03.115 Cellulitis of right lower limbNew Medication:Cephalexin 500 mg - 1 capsule by mouth four times daily x 14 daysComments:Recurrent cellulitis right medial ankle. Rx for 14 days of Keflex ( which worked well prior). Pt to keep area clean and dry - Abx cream and bandage if wearing a sock and leaving the house, open to air at home. He was instructed to call the office right away if he notices any worsening despite Abx.G56.03 Carpal tunnel syndrome, bilateral upper limbsComments:Surgery on right done 01/26 , surgery on left scheduled 02/16.
[2019-02-16 13:54] LABS: ABS Basophils 0 10^3/ul (0-0.2); ABS Eosinophils 0 10^3/ul (0-0.6); ABS Lymphocytes 0.7 10^3/ul (1.0-4.8); ABS Monocytes 0.1 10^3/ul (0-0.8); ABS Neutrophils 8.4 10^3/ul (1.5-7.7); ABS Nucleated RBC 0 10^3/ul; Eosinophil % 0.1 %; Hematocrit 47 % (36-46); Hemoglobin 16.2 g/dL (14.0-18.0); Lymphocyte % 7.8 %; Mean Corpuscular HGB Conc 35 g/dL (31-36); Mean Corpuscular Hemoglobin 31 pg (27-31); Mean Corpuscular Volume 89 fL (80-94); Mean Platelet Volume 7.5 fL (7.4-10.4); Nucleated Red Blood Cells % 0.1; Platelet Count 177 10^3/uL (150-450); Red Blood Count 5.27 10^6 /uL (4.18-5.48); Red Cell Distribution Width 14 % (10.5-15); White Blood Count 9.3 10^3/uL (3.5-10.8)
[2019-02-16 14:10] LABS: Albumin 4.1 g/dL (3.2-5.2); Albumin/Globulin Ratio 1.4 (1-3); BUN/Creatinine Ratio 14.3 (8-20); Calcium 9.2 mg/dL (8.6-10.3); EGFR African American 75.2 (>60); EGFR Non-African American 62.1 (>60); Potassium 4.1 mmol/L (3.5-5.0); Total Bilirubin 0.6 mg/dL (0.2-1.0); Total Protein 7.1 g/dL (6.4-8.9)
[2019-02-16] MEDS ORDERED: HYDROcodone/ACETAMIN 5-325 MG* 1 TAB PO ONE (15:49)
[2019-02-16] MEDS ORDERED: Acetaminophen TAB* 325 MG PO PRN (17:17)
[2019-02-16] MEDS ORDERED: Nitroglycerin TAB 0.4 MG* 0.4 MG TAB PO PRN (17:36)
[2019-02-16] MEDS: Enoxaparin(*) 40 MG/0.4 ML SYR SUBCUT SCH (18:28)
[2019-02-16] MEDS ORDERED: NS 0.9% 1000 ML** 1,000 ML IV ONE (18:49)
--- NOTE | 2019-02-16 19:16 | HP ---
HISTORY AND PHYSICAL: ADDENDUM: Differential for cellulitis includes venostasis ulcer. Also, EKG in 2011 is reassuring. JACQUELIN STEPHENSON [id number]/CPS #: [id number] [facility]
[2019-02-16] MEDS: Mometasone 220 MCG MDI INH SCH (20:09)
--- NOTE | 2019-02-16 20:39 | HP ---
CC: Dr. Bradley Hurtado * HISTORY AND PHYSICAL: DATE OF ADMISSION: 02/16/19 PRIMARY CARE PHYSICIAN: Dr. Bradley Hurtado. ATTENDING PHYSICIAN: Nidhi Dawn DO * (dictated by JACQUELIN Mejia) CHIEF COMPLAINT: Chest pressure, chest pain and shortness of breath. HISTORY OF PRESENT ILLNESS: Alcides Dennis is a 63-year-old male with significant past medical history of hypertension and coronary artery disease, who presented to the ED from [facility] with chest pain and shortness of breath 30 minutes postoperatively after a carpal tunnel release surgery. The patient had left-sided carpal tunnel release surgery today at outpatient [facility] with Dr. Razo. Thirty minutes after arriving to the PACU, the patient was feeling well when suddenly he had abdomen pain and moments later had chest pain that felt like "my 140- pound dog was sitting on my chest. " He additionally had shortness of breath during this time. At the [facility], he was administrated sublingual nitroglycerin on 3 counts, 5 mg metoprolol, 325 mg aspirin, morphine, and oxygen via nasal cannula. By the time he arrived to the emergency department here at [facility], his chest pain was improving. At the time of our visit, his chest pain was resolved but he did feel a lingering "chest tightness." He no longer had shortness of breath. The patient admits to chest pain with exertion for the last several years. He does not experience orthopnea. He has not experienced paroxysmal nocturnal dyspnea. He did not have radiation of pain to his neck, jaw, or arms. Additionally, the patient denies fevers, chills, and dizziness and headaches. Abdominal pain was resolved as soon as the patient started experiencing chest pain. 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 At this visit, he was told the testing was normal and his statin dose was increased. Additionally, the patient has been treated with Keflex last month for cellulitis to his right ankle. Keflex treatment was completed and the patient did not have resolution of cellulitis at his right ankle. He was re- prescribed Keflex on 02/09/19 by his PCP. The patient was advised by his orthopedic surgeon, Dr. Razo to have this addressed prior to surgery. EMERGENCY DEPARTMENT COURSE: When the patient arrived to the emergency room, his vital signs were temperature of 98.4 degrees Fahrenheit, heart rate 78, respiratory rate 16, O2 sat 96% on room air, and blood pressure 147/75. Pertinent labs include troponin of 0.00. Lactic acid of 4.1. In the emergency department, as previously mentioned, the patient's chest pain improved. He was given 1 dose of Prosper. The hospitalists were then asked to evaluate the patient for admission. PAST MEDICAL HISTORY: 1. Hypertension. 2. CAD. 3. Hyperlipidemia. 4. Nonrheumatic aortic valve stenosis. 5. Obstructive sleep apnea. 6. COPD. 7. History of prostate cancer. PAST SURGICAL HISTORY: 1. Prostatectomy. 2. Right carpal tunnel release. 3. Left carpal tunnel release. 4. Right ankle surgery. HOME MEDICATIONS: 1. Losartan 50 mg p.o. b.i.d. 2. Metoprolol succinate 50 mg p.o. b.i.d. 3. Hydrochlorothiazide 25 mg p.o. daily. 4. Nitroglycerin 0.4 mg sublingual q.1 hour p.r.n. chest pain. 5. Aleve 220 mg p.o. b.i.d. p.r.n. pain. 6. Keflex 500 mg p.o. 4 times a day. 7. Asmanex inhaler 1 puff inhaled b.i.d. 8. Ibuprofen 200 to 400 mg p.o. q.6 hours p.r.n. pain. 9. Fluvastatin 40 mg p.o. q.a.m. ALLERGIES: IMDUR, SPINAL ANESTHESIA. FAMILY MEDICAL HISTORY: Mother at age 77, she had a history of coronary artery disease and hypertension. Father is alive at age 82, he has a history of hypertension. Sister has a history of coronary artery disease. SOCIAL HISTORY: The patient lives with his and son. 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 He smoked about 1 to 2 packs per day for roughly 20 years, but quit smoking in 2007. He does not drink alcohol. Denies use of illegal drugs. The patient's is his surrogate decision maker. REVIEW OF SYSTEMS: An 11-system review of systems was completed and all pertinent positives and negatives are in the HPI. All other systems are negative except the musculoskeletal system. The patient has bilateral foot pain which is chronic for several years. PHYSICAL EXAMINATION HEAD: Normocephalic and atraumatic. EYES: PERRL and sclerae are anicteric. ENT: Mucous membranes moist. NECK: Supple with range of motion within normal limits. CHEST: Regular rate and rhythm without murmurs, rubs, or gallops appreciated. Bilateral dorsalis pedis pulses intact and strong. RESPIRATORY: Chest expansion symmetric and lungs are clear to auscultation without adventitious lung sounds. ABDOMEN: Obese, soft, nondistended, nontender. EXTREMITIES: No clubbing or edema in all extremities. The patient has a well- demarcated area of erythema on right medial malleolus approximately 4 cm in diameter with central region of brown pigmentation and dry skin approximately 1.5 cm in diameter. Region of erythema is nonblanchable and tender to palpation. NEURO: The patient is alert and oriented x3. No focal deficits. Able to move all extremities. No tremors. DIAGNOSTIC STUDIES/LAB DATA: EKG; normal sinus rhythm at 93 beat per minute. Normal axes. T inversion in only lead 3. No other T wave or ST changes. T wave in lead 3, unchanged. Overall EKG is unchanged from that of 07/31/12. Chest x-ray, impression: "No active cardiopulmonary disease is noted." White blood cell 9.3, hemoglobin 16.2, hematocrit 47, platelets 177,000. INR 0.9, D-dimer less than 200. Sodium 137, potassium 4.1, chloride 102, carbon dioxide 24, BUN 17, creatinine 1.19, glucose 139, lactic acid 4.1, troponin 0.0 x2. ASSESSMENT/PLAN: Alcides Dennis is a 63-year-old male with past medical history of hypertension, coronary artery disease, nonrheumatic aortic valve stenosis, obstructive sleep apnea, who presents immediately status post left carpal tunnel release surgery with chest pain and shortness of breath. The patient will be admitted in observation for: 1. Chest pain. Differential includes myocardial infarction, unstable angina, pulmonary embolism. The patient's presentation is most consistent with unstable angina, which was his diagnosis in the past. The patient's most recent stress test and echo on 07/28/18 were normal. The echo demonstrated mild aortic stenosis with the murmur and mild tricuspid insufficiency with ejection fraction of 55% to 60% which is primarily unchanged from his echo in 2012. The patient has had negative troponins x2 and we will continue to trend for 1 more reading. Additionally, the EKG comparison to that from 2012 is with little change which is reassuring. Suspicion for pulmonary embolism has been ruled out as the patient had negative D-dimer and chest x-ray was within normal limits. The patient will be admitted on telemetry. He will be n.p.o. after midnight for nuclear stress testing tomorrow. Although the patient had a stress test a little over 6 months ago, it is not impossible that there had been changes . We will order fasting LDL and hemoglobin A1c in the morning. 2. Erythema to RLE. Differential of cellulitis vs venous stasis ulcer. The patient failed treatment with Keflex once outpatient. I will change to Bactrim to improve coverage. Continue to monitor including CRP. The patient does not have fever or leukocytosis. The patient does not have history of diabetes. One week prior to him presenting to urgent care in December with his initial diagnosis, he did have trauma to the area, which would be a logical cause of cellulitis. 3. Elevated lactic acid. On admission, the patient had a lactic acid of 4.1. He has no other SIRS criteria. He likely only had minimal blood loss during his surgery this morning, however surgery notes are not available at this time. It is unlikely that this is pathologic given the clinical picture. Repeating lactic acid and we will continue to monitor. It is possible that this is lab error. 4. Status post left carpal tunnel syndrome release. The patient had surgery this morning with Dr. Razo prior to arrival to the emergency department. Per Dr. Razo' office, he is to follow up in the office in 10 to 14 days after surgery for followup and suture removal. He will be given hydrocodone for pain control, as that was prescribed to him as an outpatient. It is noted that morphine is listed on his allergy list, though it is not a true allergy. The patient states that it "makes him feel like there is bugs crawling on his skin. " Chronic conditions: 5. Hypertension. Continue to monitor blood pressure. The patient has been stable in the emergency department. Continue home metoprolol and losartan. 6. Coronary artery disease and hyperlipidemia. The patient was diagnosed with coronary artery disease in 2011 with cardiac catheterization. No stents were placed at this time. The patient follows with Dr. Ward. His most recent visit was in July 2018. Continue home medications of p.r.n. sublingual nitroglycerin, losartan, metoprolol. Fluvastatin is not on formulary, can be substituted as atorvastatin. 7. Obstructive sleep apnea. The patient reports he does not use the CPAP at home. It is recommended that he use the CPAP to avoid complications or to avoid sequelae including pulmonary hypertension. The patient does not wish to wear CPAP in the hospital. 8. Chronic obstructive pulmonary disease. The patient reports that he has chronic obstructive pulmonary disease. He is unsure why he is prescribed Asmanex inhaler. He had PFTs in 2012 that are not consistent with asthma nor chronic obstructive pulmonary disease. They are most consistent with restrictive pulmonary disease. We will continue with the formularies. Inhaler during his inpatient stay nonetheless. 9. FEN. Diet is a heart healthy diet. The patient is n.p.o. after midnight due to nuclear stress test tomorrow. Electrolytes are within normal limits. No fluids needed at this time as I suspect that lactic acid elevation is lab error. 10. DVT prophylaxis. The patient is highest risk for deep venous thrombosis. Subcutaneous heparin has been initiated. 11. Code status. The patient is full code. TIME SPENT: Time spent on this admission is 55 minutes, approximately half spent at bedside. Case has been reviewed by my attending Dr. Nidhi Dawn, and she agrees with this assessment and plan. JACQUELIN MEJIA [id number]/CPS #: [id number]/CPS #: [id number] VINEET
[2019-02-16] MEDS: Metoprolol Succinate XL TAB* 50 MG PO SCH (21:07)
[2019-02-16] MEDS: Losartan TAB* 25 MG PO SCH (21:07)
[2019-02-16] MEDS: HYDROcodone/ACETAMIN 5-325 MG* 1 TAB PO PRN (23:20)
[2019-02-17] MEDS: HYDROcodone/ACETAMIN 5-325 MG* 1 TAB PO PRN ×2 (04:48→11:42)
[2019-02-17 05:38] LABS: ABS Basophils 0 10^3/ul (0-0.2); ABS Eosinophils 0 10^3/ul (0-0.6); ABS Lymphocytes 1.3 10^3/ul (1.0-4.8); ABS Monocytes 0.8 10^3/ul (0-0.8); ABS Neutrophils 7.6 10^3/ul (1.5-7.7); ABS Nucleated RBC 0.1 10^3/ul; Eosinophil % 0.1 %; Hematocrit 43 % (36-46); Hemoglobin 14.9 g/dL (14.0-18.0); Mean Corpuscular HGB Conc 35 g/dL (31-36); Mean Corpuscular Hemoglobin 31 pg (27-31); Mean Corpuscular Volume 89 fL (80-94); Mean Platelet Volume 7.2 fL (7.4-10.4); Nucleated Red Blood Cells % 0.5; Platelet Count 153 10^3/uL (150-450); Red Cell Distribution Width 14 % (10.5-15); White Blood Count 9.7 10^3/uL (3.5-10.8)
[2019-02-17 06:00] LABS: BUN/Creatinine Ratio 23.8 (8-20); C Reactive Protein 1.17 mg/L (<8.01); EGFR African American 90.9 (>60); EGFR Non-African American 75.1 (>60); HDL Cholesterol 35.8 mg/dL; Potassium 3.7 mmol/L (3.5-5.0)
[2019-02-17] MEDS: Mometasone 220 MCG MDI INH SCH (08:24)
[2019-02-17] MEDS ORDERED: Hydrochlorothiazide TAB* 25 MG PO SCH (09:00)
[2019-02-17] MEDS ORDERED: FLUVASTATIN PO SCH ×2 (09:00)
[2019-02-17] MEDS ORDERED: Sulfamethox/Trimethoprim DS 800/160* TAB PO SCH (09:00)
[2019-02-17] MEDS: Losartan TAB* 25 MG PO SCH (09:02)
[2019-02-17] MEDS ORDERED: Regadenoson* 0.4 MG/5 ML SYRINGE ONE (14:07)
[2019-02-17] MEDS: Metoprolol Succinate XL TAB* 50 MG PO SCH (14:56)
[2019-02-17 14:58] VITALS: BP 134/79
--- NOTE | 2019-02-17 23:15 | DS ---
CC: Dr. Mathis.* DISCHARGE SUMMARY: DATE OF ADMISSION: 02/16/19 DATE OF DISCHARGE: 02/17/19 PRIMARY CARE PROVIDER: Dr. Mathis. ORTHOPEDIC SURGEON: Dr. Razo. PRINCIPAL DIAGNOSES: 1. Noncardiac chest pain. 2. Status post left carpal tunnel release on 02/16/19. SECONDARY DIAGNOSES: 1. Hypertension. 2. Nonobstructing coronary artery disease. 3. Hyperlipidemia. 4. Obstructive sleep apnea. 5. Chronic obstructive pulmonary disease. 6. Aortic stenosis. DISCHARGE MEDICATIONS: 1. Lescol 40 mg p.o. daily. 2. Losartan 50 mg p.o. b.i.d. 3. Metoprolol XL 50 mg p.o. b.i.d. 4. Hydrochlorothiazide 25 mg p.o. daily. 5. Ultram 50 to 100 mg p.o. q.6 hours p.r.n. pain. 6. Nitroglycerin 0.4 mg p.o. q.5 minutes p.r.n. chest pain. 7. Asmanex 1 puff inhaled twice daily. 8. Ibuprofen 200 to 400 mg p.o. q.6 hours p.r.n. pain. HOSPITAL COURSE: Mr. Dennis is a 63-year-old male who underwent elective left tunnel carpal release on 02/16/19 and then subsequently developed 30 minutes of chest discomfort and shortness of breath postoperatively. He felt the chest discomfort to be like a heavy weight was on his chest. He received nitroglycerin x3, metoprolol, and 325 mg of aspirin as well as morphine and oxygen. The patient was then transferred to the ER for evaluation. The patient has been having chest pain with exertion for the last several years. He did have a stress test in June 2018. The patient was subsequently admitted for evaluation of the chest discomfort. He was ruled out with serial troponins and EKGs. He under-went a chemical nuclear stress test on 02/17/19 that revealed no evidence for ischemia and a normal left ventricular wall motion and estimated ejection fraction. From this standpoint the patient is felt to be stable. The cause of his discomfort and shortness of breath is unclear but I question this may have been related to his anesthesia. Also of note, the patient had been treated for a right medial ankle cellulitis. His describes there being a blister present initially which was then opened to obtain a culture. This subsequently sounds as if it ulcerated. He had been applying antibiotic ointment and then covering with a Band-Aid. At one point he was on Keflex which then finished and then was subsequently started back on Keflex despite not having any improvement in the area. The patient now has an area of fairly well demarcated red skin change surrounding a scabbed-over shallow ulceration overlying the right medial ankle. My suspicion for this erythema is that this is a contact dermatitis. The patient has been covering this wound with a band-aid as an occlusive dressing for quite a while. I have recommend that the patient apply a thin layer Vaseline and then leave the area open to air. The patient will need to have this followed up by his primary care provider in the near future. On the day of discharge; the patient is awake, alert, and oriented; sitting up in bed, in no acute distress. His cardiac exam reveals a normal S1 and S2. Regular rate and rhythm. His lungs are clear. His abdomen is soft, nontender, and nondistended. The left distal arm is in a postoperative dressing. There are other skin findings about the right medial ankle noted above. FOLLOWUP CONCERNS: The patient is being discharged home today 02/17/19. Activity level is as tolerated. Diet is heart healthy. CONDITION ON DISCHARGE: Stable. TIME SPENT: Twenty five minutes was spent discharging this patient. [id number]/CPS #: [id number] MTDD
== END 2019-02-17 16:25 | disposition home or self-care (01) ==
LOC: ED 13:19 → MEDTELE 17:17
PROVIDERS: ADMIT Hospitalist; ATTEND Hospitalist
DX: R07.89 Other chest pain (principal); G56.02 Carpal tunnel syndrome, left upper limb; I10 Essential (primary) hypertension; I25.10 Atherosclerotic heart disease of native coronary artery without angina pectoris; E78.5 Hyperlipidemia, unspecified; G47.33 Obstructive sleep apnea (adult) (pediatric); J44.9 Chronic obstructive pulmonary disease, unspecified; I35.0 Nonrheumatic aortic (valve) stenosis; Z85.46 Personal history of malignant neoplasm of prostate; Z88.6 Allergy status to analgesic agent; Z87.891 Personal history of nicotine dependence
CPT/HCPCS: 36415; 71045; 78452; 80048; 80053; 80061; 83036; 83605; 83721; 84484; 85025; 85379; 85610; 86140; 93005; 93017; 94640; 96360; 96372; 99285; A9270-GY; A9502; G0378; J1650; J2785

== ENCOUNTER 2019-06-12 06:40 | Day surgery (SDC) | payer BC ==
[2019-06-12] MEDS ORDERED: Buffered Lidocaine 1% SYRIN* 1 ML/SYRINGE INTRADERM ONE (08:05)
[2019-06-12] MEDS ORDERED: ceFOXitin 2 GM IVPREMIX* 2 GM/50 ML BAG ONE (08:05)
[2019-06-12] MEDS ORDERED: fentaNYL* 50 MCG/ML 2 ML VIAL (100 MCG VIAL) ONE (08:16)
[2019-06-12] MEDS ORDERED: Midazolam* 1 MG/ML 2 ML VIAL (2 MG) ONE (08:16)
[2019-06-12] MEDS ORDERED: Bupivacaine 0.25% SDV PF* 10 ML VIAL INJ ONE (08:58)
[2019-06-12] MEDS ORDERED: Lidocaine 2% JELLY* 6 ML JELLY TOPICAL ONE (08:58)
[2019-06-12] MEDS ORDERED: Famotidine IV* 10 MG/ML 2 ML (20 mg) ONE (09:02)
[2019-06-12] MEDS ORDERED: Propofol* 10 MG/ML 20 ML BTL ONE (09:17)
[2019-06-12] MEDS ORDERED: Ketorolac INJ* 30 MG/ML 1 ML VIAL ONE (09:17)
[2019-06-12] MEDS ORDERED: Lidocaine 2% PF * 5 ML VIAL ONE (09:18)
[2019-06-12] MEDS ORDERED: KETAMINE HCL* 50 MG/ML 10 ML VIAL ONE (09:20)
[2019-06-12] MEDS ORDERED: Levalbuterol 0.63MG/3ML NEB* UNIT OF USE INH PRN (09:22)
[2019-06-12] MEDS ORDERED: Naloxone* 0.4 MG/ML 1 ML VIAL IV PRN (09:22)
[2019-06-12] MEDS ORDERED: Ondansetron INJ* 2 MG/ML VIAL IV PRN (09:22)
[2019-06-12] MEDS ORDERED: HYDROcodone/ACETAMIN 5-325 MG* 1 TAB PO PRN (09:22)
[2019-06-12] MEDS ORDERED: DiMENhydriNATE IV* 50 MG/ML VIAL IV PUSH PRN (09:22)
[2019-06-12] MEDS ORDERED: Acetaminophen TAB* 325 MG PO PRN (09:22)
[2019-06-12] MEDS ORDERED: Bacitracin OINTMENT* 0.5% 0.5 oz TUBE ONE (09:36)
[2019-06-12] MEDS ORDERED: Gelfoam 12-7 ADSORBABL SPONGE* 1 EA SPONGE ONE (09:41)
[2019-06-12] MEDS ORDERED: HYDROcodone/ACETAMIN 5-325 MG* 1 TAB ONE (10:16)
[2019-06-12 10:43] VITALS: BP 142/84
--- NOTE | 2019-06-12 12:18 | OP ---
DATE OF OPERATION: 06/12/19 [facility] DATE OF : 59 ATTENDING SURGEON: Bhupinder Martins MD [employer] OPERATOR: JACQUELIN Wilkins student. PRE-OP DIAGNOSIS: Severe hemorrhoids. POST-OP DIAGNOSIS: Severe hemorrhoids. OPERATIVE PROCEDURE: Rectal examination under anesthesia, hemorrhoidectomy of three hemorrhoidal bundles with LigaSure. INDICATIONS FOR PROCEDURE: Painful bleeding, hemorrhoids risks, including but not limited to, bleeding, infection, injury to internal sphincter explained to the patient, who seemed to understand and agreed to the procedure and all questions were answered. DESCRIPTION OF PROCEDURE: The patient was taken to the operating room and placed in the prone Jackknife position. Sedation was given by the anesthesiologist. Preoperative antibiotics were given. Time-out was performed indicating correct patient and correct procedure. Digital rectal examination revealed no masses. Large internal hemorrhoids were noted protruding the rectum. Some hemorrhoidal external tags were noted as well. A retractor was placed and the rectum was examined. There was no fissure or distal rectal abnormalities otherwise. The two postero-lateral bundles were large. Each was injected with 0.5% Marcaine plain. Using the LigaSure device, hemorrhoidectomy performed. EBL was minimal. A third bundle on the right more anterior was noted and removed in similar fashion. Antibiotic ointment was applied. Hemostasis was intact. Surgicel with Gelfoam packing was applied by inserting this into the rectum giving some pressure. He tolerated the procedure well. He was taken to recovery in stable condition. [id number]/CPS #: [id number] MTDD
== END 2019-06-12 11:37 | disposition home or self-care (01) ==
LOC: OR 06:40
PROVIDERS: ATTEND Surgery
DX: K64.2 Third degree hemorrhoids (principal); Z87.891 Personal history of nicotine dependence; E78.5 Hyperlipidemia, unspecified; I25.10 Atherosclerotic heart disease of native coronary artery without angina pectoris; I35.0 Nonrheumatic aortic (valve) stenosis; I10 Essential (primary) hypertension; G47.33 Obstructive sleep apnea (adult) (pediatric)
CPT/HCPCS: 88304; A9270-GY; J0694; J1885; J2250; J2704; J3010; J3490

== ENCOUNTER 2019-06-16 20:29 | Emergency (ER) | payer BC ==
--- OUTSIDE RECORDS SUMMARY | 2019-06-16 21:45 | XMS REPORT | Continuity of Care Document ---
:1955 External Reference #:[id number] Author Name Kaitlyn Neal Care Team Providers Name Role Phone Bradley Hurtado MD Primary Care Physician Unavailable Payers Date Identification Numbers Payment Provider Subscriber Policy Number: [id number] [facility] Sarahy Elena PayID: [id number] [address] [place] [address] Effective: 2018 Policy Number: [id number] [facility] Sarahy Elena Onset: 2013 Group Number: [id number] [address] [address] Group Name: fax [phone] [place] [address] PayID: [id number] Problems Active Problems Provider Date Malignant essential hypertension Josee Ward M.D. Onset: 2011 Precordial pain Josee Ward M.D. Onset: 05/11/2012 Electrocardiogram abnormal Josee Ward M.D. Onset: 05/11/2012 Hyperlipidemia Josee Ward M.D. Onset: 05/11/2012 Coronary arteriosclerosis Josee Ward M.D. Onset: 05/16/2012 Essential hypertension Josee Ward M.D. Onset: 05/16/2012 Obstructive sleep apnea syndrome Josee Ward M.D. Onset: 2011 Dyspnea Josee Ward M.D. 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 Unknown smoker Quit in 2007 Recreational Drug Use Never Used Drugs Smoking Status Reviewed: 06/02/19 Patient is a former 1 ppd x 20 years. smoker Quit in 2007 Exercise Type/Frequency Exercises sporadically Allergies, Adverse Reactions, Alerts Active Allergies Reaction Severity Comments Date Imdur GI upset 10/11/2015 Morphine feeling of skin crawling 06/02/2019 Inactive Allergies NKDA 05/11/2012 Medications Active Medications SIG Qnty Indications Ordering Date Provider Hydrochlorothiazide 1 by mouth every 90tabs Qutaybeh S. 12/18/2013 25mg day Maghaydah, Tablets M.D. Losartan Potassium take one tablet 180tabs Qutaybeh S. 10/17/2013 50mg Tablets by mouth twice a Maghaydah, day M.D. Nitroglycerin 1 sl as needed x 30tabs Qutaybeh S. 05/11/2012 0.4mg Tablets Sub 3 for chest pain Lorene Ward Metoprolol Succinate ER take one tablet 180tabs Qutaybeh S. 05/11/2012 50mg by mouth twice a Maghaydah, Tablets ER 24HR day M.D. Ibuprofen 1-2 tabs by 90tabs Unknown 200mg Tablets mouth as needed. pt knows not to take with aleve. Asmanex Twisthaler 14 1 inhalation Unknown Metered Doses twice daily 220mcg/Inh Aerosol Fluvastatin Sodium 1 tablet daily Unknown 20mg Capsules Aleve 1-2 by mouth Unknown 220mg Capsules twice a day as needed-pt knows not to take with ibuprofen Proctozone-HC Foor-Pessin, 2.5% Cream Lorene Duffy Lidocaine Foor-Pessjean claude, 5% Ointment Lorene Duffy History Medications Tramadol HCL 1-2 tablets by 30tabs Da Razo 02/28/2019 - 50mg mouth every 6 MD 05/11/2019 Tablets hours as needed pain Hydrocodone-Acetamin 1 or 2 tabs by 30tabs Da Razo, 02/16/2019 - ophen mouth every 6-8 MD 05/11/2019 5-325mg Tablets hours as needed for pain Tramadol HCL 1-2 tablets by 30tabs Da Razo, 01/26/2019 - 50mg mouth every 6 MD 02/16/2019 Tablets hours as needed pain Norvasc 1 by mouth every 30tabs Marietabrando SKhanh 07/08/2018 - 2.5mg Tablets day Lorene Ward 08/05/2018 Isosorbide 1 by mouth every 30tabs 786.50 Josee SKhanh 08/13/2015 - Mononitrate ER day Lorene Ward 10/10/2015 30mg Tablets ER 24HR Metoprolol Tartrate 1 po bid Josee Moore 05/11/2012 - Lorene Ward 05/11/2012 25mg Tablets Simvastatin 1 po qhs 100tabs Unknown - 40mg 02/09/2013 Tablets Soma 1 po qid for 60tabs Unknown - 350mg Tablets spasms 05/11/2012 Percocet q4h prn pain 60tabs Unknown - 5-325mg 05/11/2012 Tablets Niacin 2 po qd Unknown - 500mg Tablets 10/17/2013 Lisinopril 1 po qd 90tabs Josee S. - 5mg Lorene Ward 08/24/2012 Tablets Aspir-Low 1 po qd per pt 30tabs Unknown - 325mg 09/19/2014 Tablets Vitamin D-3 1 po qd 8tabs Unknown - 5000Unit 10/17/2013 Tablets Losartan Potassium 1 po qd 90tabs Unknown - 10/17/2013 50mg Tablets Advair Diskus 1 puff by mouth Unknown - twice a day 06/11/2015 250-50mcg/Dose Aerosol Cephalexin Coleman, - 500mg Jason Zapata MD 05/11/2019 Capsules Medications Administered in Office Medication SIG Qnty Indications Ordering Provider Date Celestone 3 mg and 3mg Da Razo MD 05/09/2019 Injection Inj, Regadenoson, 0.1 MG Javon Johnson M.D. 07/28/2018 Injection Technetium TC 99M Tetrofosmin, Javon Johnson M.D. 07/28/2018 Per Unit Dose Up To 40 Millicuries Injection Inj, Regadenoson, 0.1 MG Javon Johnson M.D. 06/28/2015 Injection Inj, Regadenoson, 0.1 MG JACQUELIN Ocasio 06/28/2015 Injection Technetium TC 99M Tetrofosmin, Javon Johnson M.D. 06/28/2015 Per Unit Dose Up To 40 Millicuries Injection Technetium TC 99M Tetrofosmin, JACQUELIN Ocasio 06/28/2015 Per Unit Dose Up To 40 Millicuries Injection Vital Signs Date Vital Result Comment 06/02/2019 10:02am Height 68 inches 5'8" Weight 250.00 lb Heart Rate 72 /min BP Systolic Sitting 150 mmHg BP Diastolic Sitting 90 mmHg Respiratory Rate 16 /min Body Temperature 98.8 F BMI (Body Mass Index) 38.0 kg/m2 05/12/2019 8:42am Height 68 inches 5'8" Weight 250.00 lb with shoes Heart Rate 62 /min BP Systolic Sitting 144 mmHg ule lg cuff BP Diastolic Sitting 96 mmHg ule lg cuff BMI (Body Mass Index) 38.0 kg/m2 05/09/2019 7:59am Height 68 inches 5'8" Weight 236.00 lb Heart Rate 66 /min BP Systolic 140 mmHg BP Diastolic 80 mmHg Respiratory Rate 14 /min Pain Level 5 pt states pain is a 2 for the right wrist BMI (Body Mass Index) 35.9 kg/m2 03/28/2019 8:03am Height 68 inches 5'8" BP Systolic 148 mmHg BP Diastolic 98 mmHg Respiratory Rate 16 /min Body Temperature 96.3 F Pain Level 4 02/28/2019 9:15am Height 68 inches 5'8" Heart Rate 76 /min BP Systolic 130 mmHg BP Diastolic 84 mmHg Respiratory Rate 18 /min Body Temperature 98.1 F Pain Level 2 02/08/2019 8:08am Height 68 inches 5'8" Weight 235.00 lb Heart Rate 60 /min BP Systolic 124 mmHg BP Diastolic 78 mmHg Respiratory Rate 14 /min Body Temperature 97.7 F Pain Level 4 BMI (Body Mass Index) 35.7 kg/m2 01/10/2019 9:27am Height 68 inches 5'8" Weight 236.00 lb Heart Rate 66 /min BP Systolic 150 mmHg BP Diastolic 78 mmHg Respiratory Rate 20 /min Body Temperature 98.0 F Pain Level 2 BMI (Body Mass Index) 35.9 kg/m2 08/05/2018 9:31am Height 68 inches 5'8" Weight 237.00 lb Heart Rate 56 /min BP Systolic Sitting 128 mmHg Ra Large Cuff BP Diastolic Sitting 72 mmHg Ra Large Cuff BP Systolic Standing 136 mmHg Ra Large Cuff BP Diastolic Standing 80 mmHg Ra Large Cuff Respiratory Rate 16 /min Pain Level 0 O2 % BldC Oximetry 94 % BMI (Body Mass Index) 36.0 kg/m2 07/20/2018 8:18am Height 68 inches 5'8" Weight 236.75 lb Heart Rate 63 /min BP Systolic 124 mmHg BP Diastolic 80 mmHg Respiratory Rate 18 /min Body Temperature 97.6 F Pain Level 5 BMI (Body Mass Index) 36.0 kg/m2 07/08/2018 9:01am Height 68 inches 5'8" Weight 236.00 lb Heart Rate 56 /min regular BP Systolic Sitting 124 mmHg Ra Large Cuff BP Diastolic Sitting 82 mmHg Ra Large Cuff BP Systolic Standing 134 mmHg Ra Large Cuff BP Diastolic Standing 84 mmHg Ra Large Cuff Respiratory Rate 16 /min Pain Level 0 O2 % BldC Oximetry 93 % BMI (Body Mass Index) 35.9 kg/m2 12/14/2017 8:58am Height 68 inches 5'8" Weight 242.00 lb Heart Rate 80 /min BP Systolic Sitting 152 mmHg LA< reg BP Diastolic Sitting 84 mmHg LA< reg BMI (Body Mass Index) 36.8 kg/m2 Ejection Fraction 55%-60% 01/29/17 04/02/2017 2:59pm Height 68 inches 5'8" Weight 237.00 lb w/shoes Heart Rate 68 /min BP Systolic Sitting 146 mmHg LA lg cuff BP Diastolic Sitting 90 mmHg LA lg cuff BMI (Body Mass Index) 36.0 kg/m2 Ejection Fraction 55-60% Echo 02/08/17 01/28/2017 8:44am Height 68 inches 5'8" Weight 236.75 lb with shoes Heart Rate 70 /min BP Systolic 142 mmHg LA home cuff BP Diastolic 95 mmHg LA home cuff BP Systolic Sitting 132 mmHg LA lrg cuff BP Diastolic Sitting 88 mmHg LA lrg cuff BMI (Body Mass Index) 36.0 kg/m2 Ejection Fraction 55% - 60% echo 06/12/15 11/19/2016 11:10am Height 68 inches 5'8" Weight 241.00 lb with coats & boots Heart Rate 74 /min BP Systolic Sitting 146 mmHg LA lrg cuff BP Diastolic Sitting 88 mmHg LA lrg cuff BMI (Body Mass Index) 36.6 kg/m2 Ejection Fraction 60% NLM 06/28/15 04/03/2016 9:43am Height 68 inches 5'8" Weight 234.00 lb w/boots Heart Rate 66 /min BP Systolic Sitting 110 mmHg LA lg cuff BP Diastolic Sitting 76 mmHg LA lg cuff BMI (Body Mass Index) 35.6 kg/m2 Ejection Fraction 60% NLM 06/28/15 01/17/2016 10:26am Height 68 inches 5'8" Weight 225.00 lb Heart Rate 72 /min BP Systolic Sitting 138 mmHg LA large cuff BP Diastolic Sitting 86 mmHg LA large cuff BP Systolic Standing 132 mmHg LA BP Diastolic Standing 86 mmHg LA Respiratory Rate 16 /min BMI (Body Mass Index) 34.2 kg/m2 Ejection Fraction 55-60% 06/12/15 ECHO 10/11/2015 10:49am Height 68 inches 5'8" Weight 234.00 lb w/shoes Heart Rate 62 /min BP Systolic Sitting 142 mmHg LA reg cuff BP Diastolic Sitting 90 mmHg LA reg cuff BMI (Body Mass Index) 35.6 kg/m2 Ejection Fraction 60 NLM 06/28/15 08/13/2015 8:21am Height 68 inches 5'8" Weight 239.75 lb w/ shoes Heart Rate 70 /min BP Systolic Sitting 142 mmHg LA, lg cuff BP Diastolic Sitting 88 mmHg LA, lg cuff BMI (Body Mass Index) 36.4 kg/m2 Ejection Fraction 64% 06/28/15 NLM 07/19/2015 1:00pm Height 68 inches 5'8" Weight 230.00 lb Heart Rate 80 /min BP Systolic Sitting 130 mmHg LA. reg BP Diastolic Sitting 84 mmHg LA. reg BMI (Body Mass Index) 35.0 kg/m2 Ejection Fraction 64% 06/28/15 NLM 06/10/2015 3:18pm Height 68 inches 5'8" Weight 237.00 lb w/boots Heart Rate 72 /min BP Systolic Sitting 158 mmHg LA reg cuff BP Diastolic Sitting 98 mmHg LA reg cuff Respiratory Rate 14 /min BMI (Body Mass Index) 36.0 kg/m2 Ejection Fraction 55-60 echo 10/02/14 10/08/2014 8:53am Height 68 inches 5'8" Weight 249.00 lb with boots Heart Rate 64 /min regular BP Systolic Sitting 142 mmHg left arm reg cuff BP Diastolic Sitting 88 mmHg left arm reg cuff BP Systolic Standing 138 mmHg left arm reg cuff BP Diastolic Standing 86 mmHg left arm reg cuff Respiratory Rate 18 /min BMI (Body Mass Index) 37.9 kg/m2 09/19/2014 10:21am Height 68 inches 5'8" Weight 239.75 lb w/shoes Heart Rate 84 /min BP Systolic Sitting 128 mmHg BP Diastolic Sitting 84 mmHg Respiratory Rate 14 /min BMI (Body Mass Index) 36.4 kg/m2 07/25/2014 8:19am Height 68 inches 5'8" BP Systolic 158 mmHg large, right BP Diastolic 94 mmHg large, right BP Systolic Sitting 152 mmHg large, left BP Diastolic Sitting 88 mmHg large, left BP Systolic Standing 162 mmHg stand, left BP Diastolic Standing 100 mmHg stand, left 12/25/2013 9:31am Heart Rate 72 /min BP Systolic Sitting 128 mmHg BP Diastolic Sitting 74 mmHg 12/18/2013 10:23am Heart Rate 68 /min BP Systolic Sitting 140 mmHg BP Diastolic Sitting 88 mmHg 11/03/2013 8:32am Height 69 inches 5'9" Weight 229.00 lb Heart Rate 64 /min BP Systolic Sitting 150 mmHg BP Diastolic Sitting 90 mmHg BMI (Body Mass Index) 33.8 kg/m2 10/17/2013 10:02am Height 69 inches 5'9" Weight 225.00 lb Heart Rate 84 /min BP Systolic Sitting 160 mmHg BP Diastolic Sitting 90 mmHg Respiratory Rate 16 /min BMI (Body Mass Index) 33.2 kg/m2 02/09/2013 9:27am Height 69 inches 5'9" Weight 229.00 lb Heart Rate 72 /min BP Systolic Sitting 142 mmHg BP Diastolic Sitting 90 mmHg Respiratory Rate 20 /min BMI (Body Mass Index) 33.8 kg/m2 12/20/2012 8:37am Height 69 inches 5'9" Weight 233.00 lb Heart Rate 69 /min BP Systolic 140 mmHg BP Diastolic 84 mmHg Respiratory Rate 16 /min BMI (Body Mass Index) 34.4 kg/m2 08/24/2012 9:18am Height 69 inches 5'9" Weight 233.00 lb Heart Rate 60 /min BP Systolic 134 mmHg BP Diastolic 80 mmHg BMI (Body Mass Index) 34.4 kg/m2 05/16/2012 8:14am Height 69 inches 5'9" Weight 227.00 lb Heart Rate 64 /min BP Systolic Sitting 148 mmHg BP Diastolic Sitting 92 mmHg BMI (Body Mass Index) 33.5 kg/m2 05/11/2012 1:38pm Height 69 inches 5'9" Weight 226.00 lb Heart Rate 84 /min BP Systolic Sitting 148 mmHg BP Diastolic Sitting 104 mmHg BMI (Body Mass Index) 33.4 kg/m2 Results Test Date Facility Test Result H/L Range Note Laboratory test 02/16/2019 [facility] Surgical SEE RESULT 1 , [address] [place] [address] [phone] CBC Auto Diff 09/08/2018 [facility] White Blood 4.3 10^3/uL N 3.5-10.[address] [place] [address] [phone] Red Blood Count 5.25 10^6/uL N 4.00-5.40 [...] Cells % 0.7 Basic Metabolic Panel 09/08/2018 [facility] Sodium 138 mmol/L N 135-145 [address] [place] [address] [phone] Potassium 3.8 mmol/L N 3.5-5.0 Chloride 101 mmol/L N 101-111 Co2 Carbon Dioxide 28 mmol/L N 22-32 Anion Gap 9 mmol/L N 2-11 Glucose 104 mg/dL High 70-100 Blood Urea Nitrogen 18 mg/dL N 6-24 Creatinine 1.00 mg/dL N 0.67-1.17 BUN/Creatinine Ratio 18.0 N 8-20 Calcium 9.8 mg/dL N 8.6-10.3 Egfr Non- 76.2 >60 Egfr 92.2 >60 3 Lipid Profile 09/08/2018 [facility] Triglycerides 598 mg/dL 4 (Trig/Chol/HDL) [address] [place] [address] [phone] Cholesterol 234 mg/dL 5 HDL Cholesterol 34.8 mg/dL 6 LDL Cholesterol (SEE NOTE) mg/dL 7 Laboratory test finding 09/08/2018 [facility] Alt (SGPT) 27 U/L N 7-[address] [place] [address] [phone] LDL Cholesterol Direct 120 mg/dL 8 PSA Diagnostic < 0.008 ng/mL N 0-4.000 9 CBC Auto Diff 06/09/2016 [facility] White Blood 5.4 10^3/uL N 3.5-10.[address] [place] [address] [phone] Red Blood Count 4.83 10^6/uL N 4.0-5.4 [...] Blood Cells % 0 N Laboratory test 06/09/2016 [facility] Lactic Acid 1.4 mmol/L N 0.5-2.0 [address] [place] [address] [phone] Comp Metabolic 06/09/2016 [facility] Sodium 137 mmol/L N 133- [address] [place] [address] [phone] Potassium 3.5 mmol/L N 3.5-5.0 Chloride 104 [...] 95.2 N >60 Egfr 122.4 N >60 11 Laboratory test 06/09/2016 [facility] Magnesium 2.0 mg/dL N 1.9-2.[address] [place] [address] [phone] Lipase 21 U/L N 11.0-82.0 C Reactive Protein < 1.00 mg/L N < 5.00 12 Urinalysis Profile 06/09/2016 [facility] Urine Color Yellow N [address] [place] [address] [phone] Urine Appearance Cloudy N Urine Specific Marvin 1.025 N 1.010-1.030 Urine pH 5.0 N [...] Present Abnormal Absent Basic Metabolic Panel 02/19/2016 [facility] Sodium 136 mmol/L N 133-[address] [place] [address] [phone] Potassium 3.8 mmol/L N 3.5-5.0 Chloride 99 mmol/L Low 101-111 Co2 Carbon Dioxide 31 mmol/L N 22-32 Anion Gap 6 mmol/L N 2-11 Glucose 85 mg/dL N 70-100 Blood Urea Nitrogen 10 mg/dL N 6-24 Creatinine 0.88 mg/dL N 0.67-1.17 BUN/Creatinine Ratio 11.4 N 8-20 Calcium 9.8 mg/dL N 8.6-10.3 Egfr Non- 88.9 N >60 Egfr 114.4 N >60 13 Laboratory test 05/11/2014 [facility] PSA Diagnostic < 0.008 N 0-4.0 [address] ng/[place] [address] [phone] Basic Metabolic 12/22/2013 Sodium 138 mmol/L 133-145 Panel Potassium 4.1 mmol/L 3.5-5.0 Chloride 100 mmol/L Low 101-111 Co2 Carbon Dioxide 30.0 mmol/L 22-32 Anion Gap 8.0 mmol/L 2-11 Glucose 106 mg/dL High 70-100 Blood Urea Nitrogen 15 mg/dL 6-24 Creatinine 0.90 mg/dL 0.50-1.40 BUN/Creatinine Ratio 16.7 8-20 Calcium 10.4 mg/dL High 8.1-9.9 Egfr Non- 87.3 >60 Egfr 112.3 >60 15 Basic Metabolic Panel 07/22/2012 [facility] Sodium 138 mmol/L 135-145 [address] [place] [address] [phone] Potassium 3.9 mmol/L 3.5-5.0 Chloride 105 mmol/L 101-111 Co2 (Carbon Dioxide) 27.0 mmol/L 22-32 Anion Gap 6.0 mmol/L 2-11 16 Glucose 96 mg/dL 70-100 BUN 11 mg/dL 6-24 Creatinine 0.9 mg/dL 0.50-1.40 One Over Creatinine 1.11 BUN/Creatinine Ratio 12.2 8-20 Calcium 9.3 mg/dL 8.1-9.9 eGFR Non- 87.9 > 60 eGFR 113.1 > 60 17 Lipid Profile 07/22/2012 [facility] Triglyceride 511 mg/dL High 40-200 (Trig/Chol/HDL) [address] [place] [address] [phone] Cholesterol 188 mg/dL Less Than 200 18 High Density Lipoprotein 31 mg/dL Low 40-60 19 Cholesterol/HDL Ratio 6.06 AVERAGE High 1-4.97 Low Density Lipoprotein (SEE NOTE) mg/dL Less Than 100 20 Laboratory test 07/22/2012 [facility] Alt (SGPT) 38 U/L 17- 63 finding [address] [place] [address] [phone] Cath Panel 05/11/2012 [facility] PTT (Aptt) 29.3 SEC 25.1- 38.5 [address] [place] [address] [phone] CBC With Manual 05/11/2012 [facility] White Blood 6.5 CUMM 4.8-10.8 Diff [address] [facility] [place] [address] [phone] Red Cell Count 5.22 CUMM 4.6-6.2 Hemoglobin 16.4 g/dL 14.0-18.0 Hematocrit 46 % 42-52 Mean Corpuscular Volume 89 um3 80-94 Mean Corpuscular Hemoglob 31 pg 27-31 Mean Corpuscular HGB Cone 36 g/dL 32-36 Redcell Distribution WDTH 13 % 10.5-15 Platelet Count 199 CUMM 150-450 Mean Platelet Volume 7.9 um3 7.4-10.4 Absolute Neutrophil Count 3.4 1.5-7.7 Polysegmented Neutrophil 60 % 38-83 Band Neutrophil 1 % 0-8 Lymphocyte 32 % 25-47 Monocyte 6 % 0-13 Atypical Lymph 1 % 0-6 Anisocytosis SLIGHT Basic Metabolic Panel 05/11/2012 [facility] Sodium 139 mmol/L 135-145 [address] [place] [address] [phone] Potassium 4.1 mmol/L 3.5-5.0 Chloride 106 mmol/L 101-111 Co2 (Carbon Dioxide) 26.0 mmol/L 22-32 Anion Gap 7.0 mmol/L 2-11 21 Glucose 93 mg/dL 70-100 BUN 8 mg/dL 6-24 Creatinine 0.8 mg/dL 0.50-1.40 One Over Creatinine 1.25 BUN/Creatinine Ratio 10.0 8-20 Calcium 9.8 mg/dL 8.1-9.9 eGFR Non- 100.7 > 60 eGFR 129.6 > 60 22 Protime 05/11/2012 [facility] Inr 0.82 Low 0.88-1.13 23 [address] [place] [address] [phone] Protime 9.7 SEC Low 10.3-13.5 24 1 [id number] SEE RESULT BELOW Name: SARAHY ELENA : [address]: Da Razo MD Acct: [id number] Unit: [id number] AGE: 63 Location: [facility] Re02/16/19 SEX: M Status: DEP SDC SPEC: [id number] RAJESH: 02/16/19-[address]: Da Razo MD REQ: [id number] RECD: 02/16/19446 STATUS: SOUT _ ORDERED: Isaak, LEVEL 3 COMMENTS: [id number] FINAL DIAGNOSIS Left trapezium, excision: -- Benign bone and cartilage with degenerative change. PRE-OPERATIVE DIAGNOSIS Left basal joint osteoarthritis. GROSS DESCRIPTION The specimen is received in formalin labeled, Left Trapezium, and consists of a 3.1 x 3.0 by up to 1.6 cm aggregate of aden-white irregular bone fragments with a small amount of adherent aden-pink soft tissue and scant muscle. Canvas Cutter Hand sections, one cassette following decalcification. Signed by and Reported on: Caitlin España MD 02/21/19 1628 END OF REPORT DEPARTMENT OF PATHOLOGY, [address] [place] [address] Demetrio Lake M.D. Director [facility] # [id number] 3 Because ethnic data is not always readily [...] 15-29 5 Kidney failure <15 (or dialysis) 4 Desirable: <150 Borderline High: 150-199 High: 200-499 Very High: >500 5 Desirable: <200 Borderline High: 200-239 High: >239 6 Low: <40 Desirable: 40-60 High: >60 7 Unable to calculate LDL as triglyceride is > 400 8 Desirable: <100 Near Optimal: 100-129 Borderline High: 130-159 High: 160-189 Very High: >189 9 Serum levels of PSA measured using the [...] methods or kits cannot be used interchangeably. 10 [facility] Severe Sepsis and Septic Shock Management Bundle Measure requires all lactic acids initially measuring >2.0 mmol/L be repeated. 11 Because ethnic data is not always readily [...] 15-29 5 Kidney failure <15 (or dialysis) 12 Acute inflammation: >10.00 13 Because ethnic data is not always readily [...] 15-29 5 Kidney failure <15 (or dialysis) 14 Serum levels of PSA measured using the [employer] DXI Hybritech immunoassay should not be interpreted [...] methods or kits cannot be used interchangeably. 15 Because ethnic data is not always readily [...] 15-29 5 Kidney failure <15 (or dialysis) 16 Anion gap measurement may be of limited value in the presence of any alkalosis, especially in a combined acid base disorder. . 17 Because ethnic data is not always [...] 5 Kidney failure <15 (or dialysis) 18 CHOLESTEROL INTERPRETATION: Desirable: Less than 200 MG/DL Borderline-High Risk: 200-239 MG/DL High-Risk: 240 MG/DL and over 19 HDL INTERPRETATION: Undesirable: High Risk: Less than 40 MG/DL Desirable: Low Risk: Greater than 60 MG/DL 20 UNABLE TO CALCULATE LDL TRIGLYCERIDE IS > 400 21 Anion gap measurement may be of limited value in the presence of any alkalosis, especially in a combined acid base disorder. . 22 Because ethnic data is not always readily [...] 15-29 5 Kidney failure <15 (or dialysis) 23 Recommended INR for Patients on Oral Anticoagulants Prophylaxis 2.0 - 3.0 Treatment of thrombosis 2.0 - 3.0 Prevention of embolism 2.0 - 3.0 Prevention of embolism from prosthetic heart valves 2.5 - 3.5 24 DIAGNOSIS,TREATMENT,AND THERAPY MUST BE BASED ON THE INR VALUE ALONE. Procedures Date Code Description Status 05/24/2019 [id number] Colonoscopy Completed 05/12/2019 75974 EKG Tracing & Interpretation Completed 05/09/2019 86495 Inject/Drain Joint/Bursa Intermediate W/O US Completed 02/28/2019 26024 Short Arm Splint Application Completed 02/17/2019 30183 Treadmill Interp/Report Only Completed 02/17/2019 40921 Stress Test Supervsn W/Out I/R Completed 02/16/2019 32649 Arthroplasty Interposition Intercarpal Or Completed Carpometacarpal JTS 02/16/2019 95419 Arthroplasty Interposition Intercarpal Or Completed Carpometacarpal JTS 02/16/2019 62758 EKG, Interpretation Only Completed 02/16/2019 77392 Carpal Tunnel Release Completed 02/16/2019 90832 Tendon Transfer CMC/Hand W/O Free Graft Completed 02/16/2019 87975 Tendon Transfer CMC/Hand W/O Free Graft Completed 01/26/2019 56139 Carpal Tunnel Release Completed 01/26/2019 66677 Carpal Tunnel Release Completed 07/28/2018 12539 Myocardial Perfusion Imaging Tomographic (Spect) Completed Multiple Studies 07/28/2018 03864 Stress Test Completed 07/26/2018 08239 ECHO Transthoracic, Real-Time 2D With Doppler And Color Completed Flow 07/26/2018 65864 ECHO Transthoracic, Real-Time 2D With Doppler And Color Completed Flow 07/08/2018 98286 EKG Tracing & Interpretation Completed 12/14/2017 76716 EKG Tracing & Interpretation Completed 03/31/2017 15173 Stress Test Supervsn W/Out I/R Completed 03/31/2017 21211 Treadmill Interp/Report Only Completed 02/08/2017 64524 ECHO Transthoracic, Real-Time 2D With Doppler And Color Completed Flow 02/08/2017 73943 ECHO Transthoracic, Real-Time 2D With Doppler And Color Completed Flow 01/28/2017 20386 EKG Tracing & Interpretation Completed 11/19/2016 27651 EKG Tracing & Interpretation Completed 07/21/2016 07985 Nerve Conduction 11-12 Studies Completed 01/17/2016 68124 EKG Tracing & Interpretation Completed 06/28/2015 48746 Myocardial Perfusion Imaging Tomographic (Spect) Completed Multiple Studies 06/28/2015 91425 Stress Test Completed 06/12/2015 64388 ECHO Transthoracic, Real-Time 2D With Doppler And Color Completed Flow 06/10/2015 81673 EKG Tracing & Interpretation Completed 10/02/2014 27961 ECHO Transthoracic, Real-Time 2D With Doppler And Color Completed Flow 09/20/2014 20403 ECHO Stress Test Incl Perf Contiuous ekg Monitoring Completed W/Phys Superv 09/19/2014 79869 EKG Tracing & Interpretation Completed 10/17/2013 81046 EKG Tracing & Interpretation Completed 01/26/2013 71089 ECHO Transthoracic, Real-Time 2D With Doppler And Color Completed Flow 01/11/2013 48479 ECHO Stress Test Incl Perf Contiuous ekg Monitoring Completed W/Phys Superv 01/11/2013 55168 ECHO Stress Test Incl Perf Contiuous ekg Monitoring Completed W/Phys Superv 12/20/2012 11866 EKG Tracing & Interpretation Completed 08/24/2012 18806 EKG Tracing & Interpretation Completed 07/17/2012 55158 Polysomnography Sleep Staging 4+ Parameters W/Cpap Completed 06/12/2012 50205 Polysomnography Sleep Staging 4+ Parameters W/Cpap Completed 06/12/2012 25435 Polysomnography Sleep Staging 4+ Parameters W/Cpap Completed 05/12/2012 76573 Cath PLMT&NJX L Ventriculog Img S&I Completed 05/12/2012 29595 Left Health Catheterization W/Inj For Left Completed Ventriculography,S&I 05/12/2012 54775 Left Heart Cath. Incl S/I Coronaries, Angio S/I V Gram Completed If Done 05/11/2012 66233 EKG Tracing & Interpretation Completed 04/24/2012 06838 ECHO Transthorasic Realtime 2D W Doppler & Color Flow Completed Hosp 04/24/2012 88852 EKG, Interpretation Only Completed 04/23/2012 09041 Treadmill Interp/Report Only Completed 04/23/2012 11255 Stress Test Supervsn W/Out I/R Completed 04/22/2012 96389 EKG, Interpretation Only Completed Encounters Type Date Location Provider Dx Diagnosis Office Visit 05/12/2019 Cardiology Services Qutaybeh S. I10 Essential ( primary) 8:40a [facility] [place] [facility] [place] Lorene Ward hypertension I25.10 [facility] heart disease of [place] coronary artery w/o ang pctrs E78.5 Hyperlipidemia, unspecified G47.33 Obstructive sleep apnea (adult) (pediatric) I35.0 Nonrheumatic aortic (valve) stenosis E66.9 Obesity, unspecified R94.31 Abnormal electrocardiogram [ECG] [EKG] Office Visit 02/17/2019 10:53a [facility] Nidhi Dawn, R07.89 Other chest Assoc,pc D.O. pain Hospitalists I10 Essential (primary) hypertension I25.10 [facility] heart disease of [place] coronary artery w/o ang pctrs E78.5 Hyperlipidemia, unspecified G47.33 Obstructive sleep apnea (adult) (pediatric) I35.0 Nonrheumatic aortic (valve) stenosis Office Visit 02/16/2019 10:53a [facility] Patricia R07.9 Chest pain, Assoc,pc CHRISTIANO AguilarC unspecified Hospitalists L53.9 Erythematous condition, unspecified R74.0 Nonspec elev of levels of transamns & lactic acid dehydrgnse Z47.89 Encounter for other orthopedic aftercare I10 Essential (primary) hypertension I25.10 [facility] heart disease of [place] coronary artery w/o ang pctrs E78.5 Hyperlipidemia, unspecified G47.33 Obstructive sleep apnea (adult) (pediatric) J44.9 Chronic obstructive pulmonary disease, unspecified Office Visit 08/05/2018 Cardiology Qutaybeh S. I35.0 Nonrheumatic 9:40a Services [facility] [place] Ward M.D. aortic (valve) AT [place] stenosis E78.4 Other hyperlipidemia I10 Essential (primary) hypertension G47.33 Obstructive sleep apnea (adult) (pediatric) I25.10 [facility] heart disease of [place] coronary artery w/o ang pctrs Z01.810 Encounter for preprocedural cardiovascular examination G56.03 Carpal tunnel syndrome, bilateral upper limbs Office Visit 07/08/2018 Cardiology Qutaybeh S. I35.0 Nonrheumatic 8:40a [facility] [place] Ward M.D. aortic (valve) AT [place] stenosis E78.4 Other hyperlipidemia G47.33 Obstructive sleep apnea (adult) (pediatric) I10 Essential (primary) hypertension R07.9 Chest pain, unspecified Office Visit 12/14/2017 9:00a [place] [facility] Qutaybeh S. I10 Billy Ward M.D. (primary) hypertension G47.33 Obstructive sleep apnea (adult) (pediatric) E78.4 Other hyperlipidemia I35.0 Nonrheumatic aortic (valve) stenosis [facility]25.[facility] disease [facility] [place] coronary artery w/o ang pctrs Office Visit 04/02/2017 3:20p [place] [facility] Qutaybeh S. I10 Billy Ward M.D. (primary) hypertension G47.33 Obstructive sleep apnea (adult) (pediatric) E78.4 Other hyperlipidemia I35.0 Nonrheumatic aortic (valve) stenosis Office Visit 01/28/2017 9:00a [facility] Qutaybeh S. I25.10 Braeden Ward M.D. disease of [place] coronary artery w/o ang pctrs I10 Essential (primary) hypertension G47.33 Obstructive sleep apnea (adult) (pediatric) E78.4 Other hyperlipidemia R07.9 Chest pain, unspecified R94.31 Abnormal electrocardiogram [ECG] [EKG] Office Visit 11/19/2016 11:40a [facility] Qutaybeh S. I25.10 Braeden Ward M.D. disease of [place] coronary artery w/o ang pctrs I10 Essential (primary) hypertension G47.33 Obstructive sleep apnea (adult) (pediatric) E78.4 Other hyperlipidemia Office Visit 04/03/2016 10:00a [place] [facility] Qutaybeh S. I25.10 Braeden Ward M.D. disease of [place] coronary artery w/o ang pctrs I10 Essential (primary) hypertension G47.33 Obstructive sleep apnea (adult) (pediatric) E78.4 Other hyperlipidemia E66.9 Obesity, unspecified Office Visit 01/17/2016 10:40a Cardiology Qutaybeh S. I25.10 [facility] [place] M.D. disease of AT [place] coronary artery w/o ang pctrs I10 Essential (primary) hypertension G47.33 Obstructive sleep apnea (adult) (pediatric) E78.4 Other hyperlipidemia M79.605 Pain in left leg M79.604 Pain in right leg E66.9 Obesity, unspecified Office Visit 10/11/2015 11:00a [place] [facility] Marietaybeh S. I25.10 [facility] heart Lorene [place] disease of [place] coronary artery w/o ang pctrs I10 Essential (primary) hypertension G47.33 Obstructive sleep apnea (adult) (pediatric) E78.4 Other hyperlipidemia Office Visit 08/13/2015 8:30a [place] [facility] JACQUELIN Ocasio 786.50 Pain Chest Unspec 414.01 Coronary Atherosclerosis [place] 401.9 Hypertension Unspec 327.23 Obstructive Sleep Apnea Adult & Pediatric 272.4 Hyperlipidemia Other Unspec Office Visit 07/19/2015 1:20p [place] [facility] Josee S. 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 414.01 Coronary 3:20p Danya Ward M.D. Atherosclerosis [place] 401.9 Hypertension Unspec 327.23 Obstructive Sleep Apnea Adult & Pediatric 272.4 Hyperlipidemia Other Unspec 786.05 Shortness Of Breath 786.50 Pain Chest Unspec Office Visit 10/08/2014 Brad Schuler 414.01 Coronary 9:00a Cardiology Eran ROPER Atherosclerosis [facility] [place] 401.9 Hypertension Unspec 327.23 Obstructive Sleep Apnea Adult & Pediatric 272.4 Hyperlipidemia Other Unspec 786.05 Shortness Of Breath Office Visit 09/20/2014 Emely Tripp S. 414.01 Coronary 10:30a Cardiology Lorene Ward Atherosclerosis [place] 401.9 Hypertension Unspec 786.05 Shortness Of Breath 786.50 Pain Chest Unspec Office Visit 09/19/2014 Emely Tripp S. 414.01 Coronary 10:20a Danya Ward M.D. Atherosclerosis [place] 401.9 Hypertension Unspec 786.05 Shortness Of Breath 786.50 Pain Chest Unspec Office Visit 07/25/2014 8:30a [place] [facility] Nurse Visit cc 401.0 Hypertension Malignant Office Visit 12/25/2013 9:00a [place] [facility] Nurse Visit cc 401.0 Hypertension Malignant Office Visit 12/18/2013 10:50a [place] [facility] Qutaybeh S. 401.0 Hypertension Jonathan Ward M.D. 414.01 Coronary Atherosclerosis [place] 327.23 Obstructive Sleep Apnea Adult & Pediatric Office Visit 11/03/2013 [place] Nurse Visit cc 401.9 Hypertension Unspec 8:30a Cardiology Office Visit 10/17/2013 [place] Qutaybeh S. 414.01 Coronary 10:00a Cardiology Dalia Ward M.D. [place] 327.23 Obstructive Sleep Apnea Adult & Pediatric 401.9 Hypertension Unspec 786.05 Shortness Of Breath 272.4 Hyperlipidemia Other Unspec 794.31 Electrocardiogram (ECG) (EKG) Abnormal 401.0 Hypertension Malignant Office Visit 02/09/2013 [place] Qubraydenybbunny S. 414.01 Coronary 10:00a Danya Ward M.D. Atherosclerosis [place] 327.23 Obstructive Sleep Apnea Adult & Pediatric 401.9 Hypertension Unspec 786.05 Shortness Of Breath 272.4 Hyperlipidemia Other Unspec Office Visit 01/11/2013 [place] Qubraydenybeh S. 414.01 Coronary 8:30a Cardiology Lorene Ward Atherosclerosis [place] 327.23 Obstructive Sleep Apnea Adult & Pediatric 401.9 Hypertension Unspec 786.05 Shortness Of Breath Office Visit 12/20/2012 [place] Qubraydenybeh S. 414.01 Coronary 8:40a Danya Ward M.D. Atherosclerosis [place] 327.23 Obstructive Sleep Apnea Adult & Pediatric 272.4 Hyperlipidemia Other Unspec 401.9 Hypertension Unspec 786.05 Shortness Of Breath Office Visit 08/24/2012 [place] Qubraydenybeh S. 414.01 Coronary 10:00a Danya Ward M.D. Atherosclerosis [place] 327.23 Obstructive Sleep Apnea Adult & Pediatric 272.4 Hyperlipidemia Other Unspec 401.9 Hypertension Unspec 794.31 Electrocardiogram (ECG) (EKG) Abnormal Office Visit 06/20/2012 11:31a [place] 327.23 Obstructive Sleep Disorder [facility] Office Visit 06/03/2012 11:53a [place] 786.09 Dyspnea & Disorder [facility] Abnormalities Other 780.54 Hypersomnia Unspecified Office Visit 05/16/2012 Emely Tripp SKhanh 414.01 Coronary 8:40a Cardiology Lorene Ward Atherosclerosis [place] 272.4 Hyperlipidemia Other Unspec 401.9 Hypertension Unspec Office 05/12/2012 Emely Tripp SKhanh 794.31 Electrocardiogram Visit 1:30p Cardiology Lorene Ward (ECG) (EKG) Abnormal 786.50 Pain Chest Unspec 414.01 Coronary Atherosclerosis [place] 401.1 Hypertension Benign 272.4 Hyperlipidemia Other Unspec 786.05 Shortness Of Breath Office Visit 05/11/2012 Emely Tripp SKhanh 401.0 Hypertension 2:00p Cardiology CED Ward M.D. Malignant [facility] 786.51 Pain Precordial 794.31 Electrocardiogram (ECG) (EKG) Abnormal 272.4 Hyperlipidemia Other Unspec
[2019-06-17 04:27] LABS: Urine Appearance Cloudy; Urine Bacteria 1+ (Absent); Urine Bilirubin Negative (Negative); Urine Blood 1+ (Negative); Urine Color Amber; Urine Glucose Negative (Negative); Urine Ketones Trace (Negative); Urine Nitrite Negative (Negative); Urine Protein 1+(30 mg/dL) (Negative); Urine Red Blood Cell 3+(>10/hpf) (Absent); Urine Specific Gravity 1.026 (1.010-1.030); Urine Squamous Epithelial Cell Present (Absent); Urine Urobilinogen Negative (Negative); Urine White Blood Cell Trace(0-5/hpf) (Absent)
--- NOTE | 2019-06-17 05:03 | ED ---
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 He states starting to experience these symptoms after his hemorrhoids surgery 5 days ago. He reports currently feeling pain in his rectum when urinating and rates severity 10/10. He describes the pain from his hemorrhoids as sore. He states that his pain is aggravated by urinating and also by movement. He also mentions blood clots in his urine and currently being unable to urinate. The pt has Hx of prostate CA, prostatectomy, and hemorrhoids. - History of Current Complaint Chief Complaint: EDUrogenitalProblems Time Seen by Provider: 06/17/19 03:21 Stated Complaint: PASSING BLOOD IN URINE PER PT Hx Obtained From: Patient Onset/Duration: Started Hours Ago, Still Present Severity: Severe Current Severity: Severe Pain Intensity: 10 Location of Pain: Rectal Associated Signs and Symptoms: Positive: External Hemorrhoids, Hematuria, Dysuria Aggravating Factor(s): Movement, Urination - Additional Pertinent History Primary Care Physician: MASSIEL - Allergy/Home Medications Allergies/Adverse Reactions: Allergies Allergy/AdvReac Type Severity Reaction Status Date / Time isosorbide [From Imdur] AdvReac GI Upset Verified 06/12/19 08:13 morphine AdvReac Itching Verified 06/12/19 08:13 spinal anesthesia AdvReac Mild he gets Uncoded 06/12/19 08:13 "very mean" after waking up PMH/Surg Hx/FS Hx/Imm Hx Endocrine/Hematology History: Denies: Hx Anticoagulant Therapy, Hx Diabetes, Hx Thyroid Disease Cardiovascular History: Reports: Hx Angina, Hx Coronary Artery Disease, Hx Hypercholesterolemia, Hx Hypertension - on meds Denies: Hx Myocardial Infarction, Hx Pacemaker/ICD, Other Cardiovascular Problems/Disorders Respiratory History: Reports: Hx Asthma - has inhaler, Hx Sleep Apnea Denies: Hx Chronic Obstructive Pulmonary Disease (COPD), Other Respiratory Problems/Disorders GI History: Denies: Other GI Disorders History: Reports: Hx Kidney Stones - past, Other Problems/Disorders - prostate cancer Denies: Hx Chronic Renal Failure, Hx Renal Disease Musculoskeletal History: Reports: Hx Arthritis - ankles, left wrist, Hx Tendonitis - Carpal Tunnel left limb, right carpal tunnel release 01/17 Denies: Other Musculoskeletal History Sensory History: Reports: Hx Contacts or Glasses - glasses, Hx Hearing Aid - chelo Opthamlomology History: Reports: Hx Contacts or Glasses - glasses Neurological History: Denies: Hx Dementia, Hx Seizures, Other Neuro Impairments/Disorders Psychiatric History: Denies: Hx Substance Abuse - Cancer History Cancer Type, Location and Year: prostate Hx Chemotherapy: Yes - Surgical History Surgery Procedure, Year, and Place: suprapubic prostetectomy with lymph node dissection,, 2007, [facility]. right hernia repair,1989. right ankle, 1985. excision bladder stone, and kidney, 2007. cardiac cath (clean) 2008 Hx Anesthesia Reactions: Yes - spinal anes allergy possible, violent with anesthesia Infectious Disease History: No Infectious Disease History: Denies: Hx Hepatitis, Hx Human Immunodeficiency Virus (HIV), Traveled Outside the [place] in Last 30 Days - Family History Known Family History: Positive: Hypertension - Mother, father, Other - Septic shock (mother) - Social History Alcohol Use: Rare Alcohol Amount: holidays Substance Use Type: Reports: None Smoking Status (MU): Former Smoker Type: Cigarettes Amount Used/How Often: 2 packs a day for 20 yrs Have You Smoked in the Last Year: No Review of Systems Negative: Fever - on vitals, temp 96.1 F Genitourinary: Other - Positive - Hemorrhoids, passing blood clots in urine, inability to urinate Positive: dysuria, hematuria All Other Systems Reviewed And Are Negative: Yes Physical Exam - Summary Physical Exam Summary: VITAL SIGNS: Reviewed. GENERAL: Patient is a well-developed and nourished male who is lying comfortable in the stretcher. Patient is not in any acute respiratory distress. HEAD AND FACE: No signs of trauma. No ecchymosis, hematomas or skull depressions. No sinus tenderness. EYES: PERRLA, EOMI x 2, No injected conjunctiva, no nystagmus. EARS: Hearing grossly intact. Ear canals and tympanic membranes are within normal limits. MOUTH: Oropharynx within normal limits. NECK: Supple, trachea is midline, no adenopathy, no JVD, no carotid bruit, no c- spine tenderness, neck with full ROM CHEST: Symmetric, no tenderness at palpation LUNGS: Clear to auscultation bilaterally. No wheezing or crackles. CVS: Regular rate and rhythm, S1 and S2 present, no murmurs or gallops appreciated. ABDOMEN: Soft, LLQ tenderness Abdominal distension. No rebound no guarding, and no masses palpated. Hypoactive bowel sounds. EXTREMITIES: FROM in all major joints, no edema, no cyanosis or clubbing. NEURO: Alert and oriented x 3. No acute neurological deficits. Speech is normal and follows commands. SKIN: Dry and warm Triage Information Reviewed: Yes Vital Signs On Initial Exam: Initial Vitals Temp Pulse Resp BP Pulse Ox 96.1 F 99 20 146/107 95 06/16/19 20:36 06/16/19 20:36 06/16/19 20:36 06/16/19 20:36 06/16/19 20:36 Vital Signs Reviewed: Yes Diagnostics - Vital Signs Vital Signs Temp Pulse Resp BP Pulse Ox 06/17/19 02:13 98.1 F 93 20 160/98 96 06/16/19 22:45 96.5 F 94 18 148/91 95 06/16/19 20:36 96.1 F 99 20 146/107 95 - Laboratory Lab Results: Lab Results 06/17/19 Range/Units 03:55 Urine Color [place] Urine Appearance Cloudy Urine pH 5.0 (5-9) Ur Specific [place] 1.026 (1.010-1.030) Urine Protein 1+(30 mg/dl) A (Negative) Urine Ketones Trace A (Negative) Urine Blood 1+ A (Negative) Urine Nitrate Negative (Negative) Urine Bilirubin Negative (Negative) Urine Urobilinogen Negative (Negative) Ur Leukocyte Esterase Negative (Negative) Urine WBC (Auto) Trace(0-5/hpf) (Absent) Urine RBC (Auto) 3+(>10/hpf) A (Absent) Ur Squamous Epith Cells Present A (Absent) Urine Bacteria 1+ A (Absent) Hyaline Casts Present A (Absent) Urine Glucose Negative (Negative) Result Diagrams: 06/17/19 05:42 Lab Statement: Any lab studies that have been ordered have been reviewed, and results considered in the medical decision making process. Re-Evaluation - Re-Evaluation First Eval Re-Evaluation Time: 05:02 Comment: Patient is noted to have LLQ tenderness now. 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 He states starting to experience these symptoms after his hemorrhoids surgery 5 days ago. He reports currently feeling pain in his rectum when urinating and rates severity 10/10. He describes the pain from his hemorrhoids as sore. He states that his pain is aggravated by urinating and also by movement. He also mentions blood clots in his urine and currently being unable to urinate. The pt has Hx of prostate CA, prostatectomy, and hemorrhoids. Test results with no significant abnormalities except for MPV @ 7.3, Absolute Monos @ 0.9, Glucose @ 127, Urine protein @ 1+, Urine Ketones trace, Urine Blood 1+, Urine RBC 3+, Ur squamous epith cells present, Urine bacteria 1+, and Hyaline casts present. In the ED course the patient was given 145 ml Omnipaque 300 IV, 4 mg morphine IV, and 8 mg Zofran IV. Pt is signed out to Dr. Adrian at 0700 06/17/19 shift change, pending CT ABD/ PEL. Diagnosis is abdominal pain. - Diagnoses Provider Diagnoses: Abdominal pain Discharge - Sign-Out/Discharge Documenting (check all that apply): Sign-Out Patient Signing out patient TO: Luann Adrian - Discharge Plan Condition: Stable Referrals: Bradley Hurtado MD [Primary Care Provider] - - Attestation Statements Document Initiated by Scribe: Yes Documenting Scribe: CORTEZ MONTELONGO Provider For Whom Elvin is Documenting (Include Credential): TONY TAYLOR MD Scribe Attestation: CORTEZ Suarez, scribed for TONY TAYLOR MD on 06/17/19 at 0738. Status of Scribe Document: Ready
[2019-06-17] MEDS ORDERED: Morphine 4 MG/ML VIAL (1 ml) 4 MG/ML VIAL IV ONE (05:13)
[2019-06-17] MEDS ORDERED: Ondansetron INJ* 2 MG/ML VIAL IV ONE (05:14)
[2019-06-17] MEDS ORDERED: NS 0.9% 1000 ML** 1,000 ML IV SCH (05:15)
[2019-06-17 05:51] LABS: ABS Eosinophils 0.2 10^3/ul (0-0.6); ABS Lymphocytes 1.8 10^3/ul (1.0-4.8); ABS Monocytes 0.9 10^3/ul (0-0.8); ABS Neutrophils 5.8 10^3/ul (1.5-7.7); Eosinophil % 1.9 %; Hematocrit 48 % (42-52); Hemoglobin 16.6 g/dL (14.0-18.0); Lymphocyte % 20.7 %; Mean Corpuscular HGB Conc 35 g/dL (31-36); Mean Corpuscular Hemoglobin 31 pg (27-31); Mean Corpuscular Volume 88 fL (80-94); Mean Platelet Volume 7.3 fL (7.4-10.4); Nucleated Red Blood Cells % 0.1; Platelet Count 216 10^3/uL (150-450); Red Blood Count 5.44 10^6 /uL (4.18-5.48); Red Cell Distribution Width 13 % (10-15); White Blood Count 8.6 10^3/uL (3.5-10.8)
[2019-06-17 06:29] LABS: Albumin 4.2 g/dL (3.2-5.2); Albumin/Globulin Ratio 1.2 (1-3); C Reactive Protein 6.62 mg/L (<8.01); Calcium 9.7 mg/dL (8.6-10.3); EGFR African American 98.7 (>60); EGFR Non-African American 81.6 (>60); Globulin 3.6 g/dL (2-4); Potassium 3.7 mmol/L (3.5-5.0); Total Bilirubin 0.7 mg/dL (0.2-1.0); Total Protein 7.8 g/dL (6.4-8.9)
[2019-06-17] MEDS ORDERED: Iohexol 300* (CONTRAST) 10 ML SDV IV ONE (06:43)
--- NOTE | 2019-06-17 07:19 | ED ---
Progress - Progress Note Progress Note: Receiving sign out from Dr. Huynh pending CT Abd/Pel at 0700 06/17/19. This patient is a 63 year old male presenting to [facility] with a chief complaint of hematuria and dysuria. The patient is not currently complaining of discomfort. Patient had hemorrhoid surgery on 06/12/19. Patient states he has taken Miralax and Dulcolax. Patient states has had runny stool since the surgery since 2 days ago. Patient could urinate since yesterday morning. He states he last urinated a little bit on 06/15/19. He states he detected 3 clots of blood in his urine yesterday morning and has not urinated since. Patient denies fever, nausea, and vomiting. He reports lower abdomen tenderness since 06/13/19 afternoon. The patient has taken ibuprofen for this. He rates his pain 5/10 in severity. He states his pain was 10/10 upon arrival. Vital signs in room: HR 101 BPM, BP 148/95. Mometasone 220 MCG MDI * [Asmanex 220 MCG MDI *] 1 puff INH BID 03/30/17 [ History Confirmed 06/12/19] Fluvastatin (NF) [Lescol (NF)] 40 mg PO QAM 12/21/18 [History Confirmed 06/12/19 ] Nitroglycerin TAB 0.4 MG* 0.4 mg SL .Q5MIN X3 PRN 12/21/18 [History Confirmed ] Ibuprofen TAB* [Advil TAB*] 200 - 400 mg PO Q6H PRN 01/19/19 [History Confirmed 06/12/19] Hydrochlorothiazide TAB* [Hydrodiuril TAB*] 25 mg PO QAM 02/16/19 [History Confirmed 06/12/19] Losartan TAB* [Cozaar TAB*] 50 mg PO BID 02/16/19 [History Confirmed 06/12/19] Metoprolol Succinate XL TAB* [Toprol XL TAB*] 50 mg PO BID 02/16/19 [History Confirmed 06/12/19] Naproxen Sodium [Aleve] 220 - 440 mg PO BID PRN 05/12/19 [History Confirmed ] PE/Shark Liver Oil/Glyc/Wh.pet [Hemorrhoidal Cream] 1 dose TOPICAL DAILY PRN 09/16 [History Confirmed 06/12/19] HYDROcodone/ACETAMIN 5-325 MG* [[place] 5-325 TAB*] 1 tab PO Q4H PRN #12 tab MDD 6 06/12/19 [Rx] CT Abd/Pelvis impression: No abnormal masses or fluid collections are identified. Patient is status post prostatectomy. Hepaticsteatosis. ED Provider has reviewed this report. Physical Exam - Summary Physical Exam Summary: Appearance: Ill-appearing, moderate pain distress, well-nourished Skin: Warm, color reflects adequate perfusion, dry Head: Normal Head/Face inspection, atraumatic Eyes: Conjunctiva clear ENT: Normal inspection Neck: Supple, no nodes, no JVD Respiratory: Lungs clear, normal breath sounds, no respiratory distress Cardio: RRR, No murmur, pulses normal, brisk capillary refill Abdomen: Soft, nontender. Umbilical hernia, reducible. Suprapubic scar. Left lateral lower quadrant/flank tenderness. Bowel sounds: Present Musculoskeletal: Strength Intact/ROM intact, no calf tenderness, no edema. Psychological: Normal Neuro: Alert, muscle tone normal, no focal deficit GIGU: Two large hemorrhoids, still indurated and tender. Small amount of blood in the perianal area. Elias in place draining dark bebeto urine. Triage Information Reviewed: Yes Vital Signs On Initial Exam: Initial Vitals Temp Pulse Resp BP Pulse Ox 96.1 F 99 20 146/107 95 06/16/19 20:36 06/16/19 20:36 06/16/19 20:36 06/16/19 20:36 06/16/19 20:36 Vital Signs Reviewed: Yes Re-Evaluation - Re-Evaluation First Eval Re-Evaluation Time: 09:15 Change: Improved Comment: Still has discomfort. Morphine makes him feel like bugs are on him but he is not allergic. States he prefers to keep the elias in place. Course/Dx - Course Course Of Treatment: This patient is a 63 year old male presenting to [facility] with a chief complaint of hematuria and dysuria. The patient is not currently complaining of discomfort. Vital signs reviewed. Medications reviewed. Patient had hemorrhoid surgery on 06/12/19. Labs reveal Absolute Monos 0.9 H, Glucose 127 H, Urine Protein 1+ A, Urine Ketones Trace A, Urine Blood 1+ A, Urine RBC 3 + A, Ur Squamous Epith Cells Present A, Urine Bacteria 1+ A, Hyaline Casts Present A. CT Abd/Pel revealed no abnormal masses or fluid collections are identified. Patient is status post prostatectomy. Hepaticsteatosis. Spoke with Dr. Hewitt. Stated presentation is normal and to keep follow up with Dr. Martins. A plan for discharge was discussed with the patient and he was agreeable with this plan. - Diagnoses Provider Diagnoses: Abdominal pain, Urinary retention, UTI (urinary tract infection), Status post hemorrhoidectomy - Provider Notifications Discussed Care Of Patient With: Cha Hewitt - Surgery Time Discussed With Above Provider: 08:55 Discharge - Sign-Out/Discharge Documenting (check all that apply): Patient Departure - Discharge Receiving patient FROM: [facility] - At 0700 06/17/19 Patient Received Moderate/Deep Sedation with Procedure: No - Discharge Plan Condition: Stable Disposition: HOME Referrals: Bradley Hurtado MD [Primary Care Provider] - - Attestation Statements Document Initiated by Scribe: Yes Documenting Scribe: Da Santiago Provider For Whom Scribe is Documenting (Include Credential): Luann Adrian MD Scribe Attestation: Da Suarez, scribed for Luann Adrian MD on 06/17/19 at 1110. Status of Scribe Document: Ready
[2019-06-17] MEDS ORDERED: HYDROmorphone INJ1* 1 MG/ML SYRINGE IV SLOW PU ONE (09:28)
[2019-06-17] MEDS ORDERED: Ciprofloxacin TAB* 250 MG PO ONE (09:29)
[2019-06-17 10:34] VITALS: BP 151/92
== END 2019-06-17 09:20 | disposition home or self-care (01) ==
LOC: ED 20:29
DX: N39.0 Urinary tract infection, site not specified (principal); I25.119 Atherosclerotic heart disease of native coronary artery with unspecified angina pectoris; E78.00 Pure hypercholesterolemia, unspecified; I10 Essential (primary) hypertension; J45.909 Unspecified asthma, uncomplicated; Z98.890 Other specified postprocedural states; Z79.899 Other long term (current) drug therapy; Z88.6 Allergy status to analgesic agent; Z88.5 Allergy status to narcotic agent; Z88.8 Allergy status to other drugs, medicaments and biological substances; Z87.891 Personal history of nicotine dependence; K76.0 Fatty (change of) liver, not elsewhere classified; Z90.79 Acquired absence of other genital organ(s)
CPT/HCPCS: 36415; 74177; 80053; 81003; 81015; 83690; 85025; 86140; 87086; 96374; 96375; 99284; A9270-GY; J1170; J2270; J2405; Q9967

== ENCOUNTER 2020-02-26 08:53 | Emergency (ER) | payer OTHER ==
--- NOTE | 2020-02-26 09:19 | ED ---
HPI Chest Pain - HPI Summary HPI Summary: Patient is a 64 y/o M presenting to the ED for a chief complaint of right lower chest pain and shortness of breath that began on 02/26/20. Patient states that he was at work when the chest pain began. Patient also reports having bilateral LE pain and edema including the bilateral calves, nausea, and diaphoresis. The bilateral LE pain is described as a soreness sensation. He is unsure if he has had a fever. For the last 2 months, he also notes having RLQ abdominal pain described as a sharp sensation. Patient denies vomiting. Patient denies any recent injury. No aggravating or alleviating factors are reported. One month ago , patient had a varicose vein surgery at [facility]. PMHx is significant for CAD, COPD, and HTN. PSHx is significant for hernia repair. History of stent placement or DM is denied. He denies using oxygen at home. Patient uses an inhaler every morning as prescribed, but denies using the inhaler more frequently since his symptoms began. Patient was recommended to be seen at [facility] by Dr. Bradley Hurtado to assess for blood clots and pneumonia. Allergies noted. - History of Current Complaint Chief Complaint: EDChestWallPain Time Seen by Provider: 02/26/20 09:01 Hx Obtained From: Patient Onset/Duration: Atraumatic, Still Present Timing: Constant Initial Severity: Moderate Current Severity: Moderate Pain Intensity: 4 Pain Scale Used: 0-10 Numeric Chest Pain Location: Right Anterior Chest Pain Radiates: No Aggravating Factor(s): Nothing Alleviating Factor(s): Nothing Associated Signs and Symptoms: Positive: Chest Pain - Right lower, Shortness of Breath, Diaphoresis, Nausea, Abdominal Pain - RLQ, Calf Pain/Swelling, Edema - Bilateral LE. Negative: Vomiting - Additional Pertinent History Primary Care Physician: [id number] - Allergy/Home Medications Allergies/Adverse Reactions: Allergies Allergy/AdvReac Type Severity Reaction Status Date / Time isosorbide [From Imdur] AdvReac GI Upset Verified 02/26/20 08:54 morphine AdvReac Itching Verified 02/26/20 08:54 spinal anesthesia AdvReac Mild he gets Uncoded 02/26/20 08:54 "very mean" after waking up Home Medications: Home Medications Mometasone 220 MCG MDI * [Asmanex 220 MCG MDI *] 1 puff INH BID 03/30/17 [ History Confirmed 02/26/20] Fluvastatin (NF) [Lescol (NF)] 40 mg PO DAILY 12/21/18 [History Confirmed ] Nitroglycerin TAB 0.4 MG* 0.4 mg SL .Q5MIN X3 PRN 12/21/18 [History Confirmed ] Hydrochlorothiazide TAB* [Hydrodiuril TAB*] 25 mg PO DAILY 02/16/19 [History Confirmed 02/26/20] Losartan TAB* [Cozaar TAB*] 50 - 100 mg PO DAILY 02/16/19 [History Confirmed ] Metoprolol Succinate XL TAB* [Toprol XL TAB*] 50 - 100 mg PO DAILY 02/16/19 [ History Confirmed 02/26/20] Hydrocortisone [Proctozone-Hc] 1 applic TOPICAL BID 02/26/20 [History Confirmed 02/26/20] Lidocaine 5% OINT* TUBE [Xylocaine 5% Oint*] 1 applic TOPICAL BID 02/26/20 [ History Confirmed 02/26/20] PMH/Surg Hx/FS Hx/Imm Hx Previously Healthy: Yes Endocrine/Hematology History: Denies: Hx Anticoagulant Therapy, Hx Diabetes, Hx Thyroid Disease Cardiovascular History: Reports: Hx Angina, Hx Coronary Artery Disease, Hx Hypercholesterolemia, Hx Hypertension - on meds Denies: Hx Myocardial Infarction, Hx Pacemaker/ICD, Other Cardiovascular Problems/Disorders Respiratory History: Reports: Hx Asthma - has inhaler, Hx Chronic Obstructive Pulmonary Disease (COPD), Hx Sleep Apnea Denies: Other Respiratory Problems/Disorders GI History: Denies: Other GI Disorders History: Reports: Hx Kidney Stones - past, Other Problems/Disorders - prostate cancer Denies: Hx Chronic Renal Failure, Hx Renal Disease Musculoskeletal History: Reports: Hx Arthritis - ankles, left wrist, Hx Tendonitis - Carpal Tunnel left limb, right carpal tunnel release 01/17 Denies: Other Musculoskeletal History Sensory History: Reports: Hx Contacts or Glasses - glasses, Hx Hearing Aid - chelo Opthamlomology History: Reports: Hx Contacts or Glasses - glasses Neurological History: Denies: Hx Dementia, Hx Seizures, Other Neuro Impairments/Disorders Psychiatric History: Denies: Hx Substance Abuse - Cancer History Cancer Type, Location and Year: prostate Hx Chemotherapy: Yes - Surgical History Surgical History: Yes Surgery Procedure, Year, and Place: Suprapubic prostetectomy with lymph node dissection, 2007, [facility]. Right hernia repair, 1989. Right ankle, 1985. Excision bladder stone and kidney, 2007. Cardiac cath (clean), 2008. Varicose vein surgery, 01/2020, [facility] Hx Anesthesia Reactions: Yes - spinal anes allergy possible, violent with anesthesia Infectious Disease History: No Infectious Disease History: Denies: Hx Hepatitis, Hx Human Immunodeficiency Virus (HIV), Traveled Outside the [place] in Last 30 Days - Family History Known Family History: Positive: Hypertension - Mother, father, Other - Septic shock (mother) - Social History Occupation: Employed Full-time Lives: With Family Alcohol Use: Rare Alcohol Amount: holidays Hx Substance Use: No Substance Use Type: Reports: None Hx Tobacco Use: Yes Smoking Status (MU): Former Smoker Type: Cigarettes Amount Used/How Often: 2 packs a day for 20 yrs Have You Smoked in the Last Year: No Review of Systems Positive: Skin Diaphoresis Positive: Chest Pain - Right lower Positive: Shortness Of Breath Positive: Abdominal Pain - RLQ, Nausea. Negative: Vomiting Positive: Myalgia - Bilateral LE, including bilateral calves, Edema - Bilateral LE, including bilateral calves All Other Systems Reviewed And Are Negative: Yes Physical Exam - Summary Physical Exam Summary: Constitutional: Well-developed, Well-nourished, Alert. (-) Distressed Skin: Warm, Dry HENT: Normocephalic; Atraumatic Eyes: Conjunctiva normal Neck: Musculoskeletal ROM normal neck. (-) JVD, (-) Stridor, (-) Tracheal deviation Cardio: Rhythm regular, rate normal, Heart sounds normal; Intact distal pulses; The pedal pulses are 2+ and symmetric. Radial pulses are 2+ and symmetric. (-) Murmur Pulmonary/Chest wall: Effort normal. (-) Respiratory distress, (-) Wheezes, (-) Rales. Mild tenderness over the right chest wall and ribs, no perfusions noted. Abd: Soft, (-) tenderness, (-) Guarding, (-) Rebound. Abdomen slightly distended Musculoskeletal: Bilateral LE edema, mild calf tenderness, petechiae noted over left lower leg. Lymph: (-) Cervical adenopathy Neuro: Alert, Oriented x3 Psych: Mood and affect Normal Triage Information Reviewed: Yes Vital Signs On Initial Exam: Initial Vitals Temp Pulse Resp BP Pulse Ox 98.3 F 73 18 165/90 93 02/26/20 08:56 02/26/20 08:56 02/26/20 08:56 02/26/20 08:56 02/26/20 08:56 Vital Signs Reviewed: Yes Procedures - Sedation Patient Received Moderate/Deep Sedation with Procedure: No Diagnostics - Vital Signs Vital Signs Temp Pulse Resp BP Pulse Ox 02/26/20 08:56 98.3 F 73 18 165/90 93 - Laboratory Result Diagrams: 02/26/20 09:28 02/26/20 09:28 Lab Statement: Any lab studies that have been ordered have been reviewed, and results considered in the medical decision making process. - Radiology Chest X-ray Radiology Interpretation Completed By: Radiologist Summary of Radiographic Findings: Chest X-ray IMPRESSION: NO ACTIVE CARDIOPULMONARY DISEASE IS NOTED. Reviewed by Dr. Abrams. - Ultrasound Abdomen US Ultrasound Interpretation Completed By: Radiologist Summary of Ultrasound Findings: Abdomen US IMPRESSION: HEPATOMEGALY WITH FATTY INFILTRATION OF THE LIVER. Reviewed by Dr. Abrams. Venous Doppler Study Ultrasound Interpretation Completed By: Radiologist Summary of Ultrasound Findings: Venous Doppler Study IMPRESSION: NO EVIDENCE OF DEEP VENOUS THROMBOSIS OF EITHER LOWER EXTREMITY IS PRESENT. PERONEAL VEINS ARE NOT VISUALIZED ON THE RIGHT. Reviewed by Dr. Abrams. - EKG 09:44 Cardiac Rate: NL - 69 BPM EKG Rhythm: Sinus Rhythm ST Segment: Normal Ectopy: None Summary of EKG Findings: EKG at 09:44 shows normal sinus rhythm with 69 BPM, no ischemic changes. Dr. Abrams has reviewed and interpreted this EKG. Chest Pain Course/Dx - Course Course Of Treatment: Patient is a 64 y/o M presenting to the ED for a chief complaint of right lower chest pain and shortness of breath that began on . Patient also reports having bilateral LE pain and edema including the bilateral calves, nausea, and diaphoresis. The bilateral LE pain is described as a soreness sensation. For the last 2 months, he also notes having RLQ abdominal pain described as a sharp sensation. Patient denies vomiting. One month ago, patient had a varicose vein surgery at [facility]. PMHx is significant for CAD, COPD, and HTN. PSHx is significant for hernia repair. On exam, bilateral LE edema, mild calf tenderness, petechiae noted over left lower leg. Mild tenderness over the right chest wall and ribs, no perfusions noted. Abdomen slightly distended. EKG at 09:44 shows normal sinus rhythm with 69 BPM, no ischemic changes. Chest X-ray IMPRESSION: NO ACTIVE CARDIOPULMONARY DISEASE IS NOTED. Abdomen US IMPRESSION: HEPATOMEGALY WITH FATTY INFILTRATION OF THE LIVER. Venous Doppler Study IMPRESSION: NO EVIDENCE OF DEEP VENOUS THROMBOSIS OF EITHER LOWER EXTREMITY IS PRESENT. PERONEAL VEINS ARE NOT VISUALIZED ON THE RIGHT. All other abnormal lab results are not pertinent to current cc. Patient will be discharged with a diagnosis of chest wall pain and leg pain. Follow up with PCP in 2-3 days. - Diagnoses Provider Diagnoses: Chest wall pain, Leg pain Discharge ED - Sign-Out/Discharge Documenting (check all that apply): Patient Departure - Discharge - Discharge Plan Condition: Stable Disposition: HOME Patient Education Materials: Chest Wall Pain (ED) Referrals: Bradley Hurtado MD [Primary Care Provider] - Additional Instructions: RETURN TO THE EMERGENCY DEPARTMENT FOR CHANGING OR WORSENING SYMPTOMS. Follow up with your primary care physician in 2-3 days. - Billing Disposition and Condition Condition: STABLE Disposition: Home - Attestation Statements Document Initiated by Phuibe: Yes Documenting Scribe: Antonietta Gonzalez Provider For Whom Elvin is Documenting (Include Credential): Leander Abrams DO Scribe Attestation: Antonietta Suarez scribed for Leander Abrams DO on 02/26/20 at 1310. Scribe Documentation Reviewed: Yes Provider Attestation: The documentation as recorded by the Antonietta ramirez accurately reflects the service I personally performed and the decisions made by , Leander Abrams DO Status of Scribe Document: Viewed
[2020-02-26 09:41] LABS: ABS Eosinophils 0.1 10^3/ul (0-0.6); ABS Lymphocytes 1.7 10^3/ul (1.0-4.8); ABS Monocytes 0.6 10^3/ul (0-0.8); ABS Neutrophils 3.1 10^3/ul (1.5-7.7); Eosinophil % 2.3 %; Hematocrit 50 % (42-52); Hemoglobin 17.7 g/dL (14.0-18.0); Mean Corpuscular HGB Conc 36 g/dL (31-36); Mean Corpuscular Hemoglobin 32 pg (27-31); Mean Corpuscular Volume 88 fL (80-94); Mean Platelet Volume 7.3 fL (7.4-10.4); Nucleated Red Blood Cells % 0.2; Platelet Count 169 10^3/uL (150-450); Red Blood Count 5.62 10^6 /uL (4.18-5.48); Red Cell Distribution Width 13 % (10-15); White Blood Count 5.5 10^3/uL (3.5-10.8)
[2020-02-26 09:54] LABS: Albumin 4.1 g/dL (3.2-5.2); Albumin/Globulin Ratio 1.2 (1-3); BUN/Creatinine Ratio 18.7 (8-20); Calcium 9.7 mg/dL (8.6-10.3); EGFR African American 102.1 (>60); EGFR Non-African American 84.4 (>60); Globulin 3.5 g/dL (2-4); Potassium 3.5 mmol/L (3.5-5.0); Total Bilirubin 0.9 mg/dL (0.2-1.0); Total Protein 7.6 g/dL (6.4-8.9)
[2020-02-26 13:08] VITALS: BP 151/92
== END 2020-02-26 13:06 | disposition home or self-care (01) ==
LOC: ED 08:53
DX: R07.89 Other chest pain (principal); M79.606 Pain in leg, unspecified; R06.02 Shortness of breath; R10.31 Right lower quadrant pain; R60.9 Edema, unspecified; I25.10 Atherosclerotic heart disease of native coronary artery without angina pectoris; E78.00 Pure hypercholesterolemia, unspecified; I10 Essential (primary) hypertension; Z88.6 Allergy status to analgesic agent; Z88.8 Allergy status to other drugs, medicaments and biological substances; Z79.899 Other long term (current) drug therapy; Z87.442 Personal history of urinary calculi; Z85.46 Personal history of malignant neoplasm of prostate; Z87.891 Personal history of nicotine dependence
CPT/HCPCS: 36415; 71045; 76705; 80053; 84484; 85025; 85379; 93005; 93970; 99283

== ENCOUNTER 2021-05-20 06:43 | Observation (INO) ==
[~2021-05-20 06:43] MED LIST changes: +Buffered Lidocaine 1% SYRIN 1 ml INTRADERM ONE; -Buffered Lidocaine 1% SYRIN* 1 ML/SYRINGE INTRADERM ONE; -Dexamethasone IV* 4 MG/ML 1 ML (4 MG) IV SLOW PU ONE; -Dexamethasone IV* 4 MG/ML 1 ML (4 MG) ONE; -Famotidine IV* 10 MG/ML 2 ML (20 mg) IV ONE; -Famotidine IV* 10 MG/ML 2 ML (20 mg) ONE; -Lactated Ringers 1000 ML Bag* 1,000 ML IV SCH; +Lactated Ringers 1000 ml BAG 1,000 ML IV SCH
[2021-05-20] MEDS ORDERED: ceFAZolin 2 GM PREMIX 2 GM/50 ML BAG ONE (07:21)
[2021-05-20] MEDS ORDERED: Dexmedetomidine 200 mcg/2 ml 2 ml VIAL (200 mcg) ONE (08:27)
[2021-05-20] MEDS ORDERED: fentaNYL 100 mcg/2 ml 50 MCG/ML VIAL ONE ×4 (08:28→13:47)
[2021-05-20] MEDS ORDERED: Lidocaine 2% PF 5 ML VIAL ONE ×2 (08:30→11:27)
[2021-05-20] MEDS ORDERED: Propofol 0 MG/0 ML BTL ONE (08:30)
[2021-05-20] MEDS ORDERED: Bupivacaine 0.25% SDV PF 10 ML VIAL INJ ONE (08:44)
[2021-05-20] MEDS ORDERED: Levalbuterol 1.25MG/0.5ML NEB.SOL ONE (10:44)
[2021-05-20] MEDS ORDERED: Phenylephrine 40 mcg/mL 10mL (400mcg) SYRINGE ONE (11:19)
[2021-05-20] MEDS ORDERED: Propofol 10 MG/ML 20 ML BTL ONE (11:27)
[2021-05-20] MEDS ORDERED: Succinylcholine 200 mg VIAL 20 mg/ml 10 ml VIAL (200 mg) ONE (11:27)
[2021-05-20] MEDS ORDERED: Dexamethasone IV 4 MG/ML VIAL 1 ml VIAL ONE (11:27)
[2021-05-20] MEDS ORDERED: Midazolam 2 mg/2 ml VIAL 1 mg/ml 2 ml VIAL (2 mg) ONE (11:27)
[2021-05-20] MEDS ORDERED: Ondansetron 4 mg VIAL 2 MG/ML 2 ml VIAL ONE (11:27)
[2021-05-20] MEDS ORDERED: Naloxone 0.4 mg VIAL 0.4 mg/ml 1 ml VIAL IV PRN (11:47)
[2021-05-20] MEDS ORDERED: DiMENhydriNATE IV 50 mg/ml 1 ml VIAL IV PUSH PRN (11:47)
[2021-05-20] MEDS: fentaNYL 100 mcg/2 ml 50 MCG/ML VIAL IV PRN ×5 (12:36→13:48)
[2021-05-20] MEDS ORDERED: diPHENhydraMINE 25 mg TAB PO PRN (16:31)
[2021-05-20 18:28] LABS: ABS Lymphocytes 0.7 10^3/ul (1.0-4.8); ABS Monocytes 0.2 10^3/ul (0-0.8); ABS Neutrophils 7.6 10^3/ul (1.5-7.7); Hematocrit 42 % (42-52); Hemoglobin 14.9 g/dL (14.0-18.0); Lymphocyte % 8.4 %; Mean Corpuscular HGB Conc 35 g/dL (31-36); Mean Corpuscular Hemoglobin 31 pg (27-31); Mean Corpuscular Volume 89 fL (80-94); Mean Platelet Volume 6.6 fL (7.4-10.4); Platelet Count 243 10^3/uL (150-450); Red Blood Count 4.76 10^6 /uL (4.18-5.48); Red Cell Distribution Width 13 % (10-15); White Blood Count 8.5 10^3/uL (3.5-10.8)
[2021-05-20 18:34] LABS: Albumin 4.2 g/dL (3.2-5.2); Albumin/Globulin Ratio 1.2 (1-3); Calcium 9.5 mg/dL (8.6-10.3); EGFR African American 96.9 (>60); EGFR Non-African American 80.1 (>60); Globulin 3.5 g/dL (2-4); Potassium 3.9 mmol/L (3.5-5.0); Total Bilirubin 0.8 mg/dL (0.2-1.0); Total Protein 7.7 g/dL (6.4-8.9)
[2021-05-20] MEDS: oxyCODONE/Acetamin 5/325 mg TAB PO PRN (20:00)
[2021-05-20] MEDS ORDERED: Mometasone 220 MCG MDI INH SCH (21:00)
[2021-05-21] MEDS: oxyCODONE/Acetamin 5/325 mg TAB PO PRN ×2 (04:17→12:59)
[2021-05-21] MEDS ORDERED: Aspirin EC 81 mg TAB.EC (enteric coated) PO SCH (09:00)
[2021-05-21 11:32] VITALS: BP 123/77
== END 2021-05-21 13:37 | disposition home or self-care (01) ==
LOC: OR 06:43 → SSU 06:43
PROVIDERS: ADMIT Orthopaedic Surgery Hand Surgery; ATTEND Orthopaedic Surgery Hand Surgery